=== PATIENT | male | born 1990 | race Caucasian/White ===

== ENCOUNTER → 2023-04-01 13:19 | Outpatient (BNVA) | payer BC, SELFPAY | PROVIDERS: PCP Nurse Practitioner Adult Health; Visit Provider Physician Assistant Surgical | DX: Z13.89 Encounter for screening for other disorder (principal) ==

== ENCOUNTER 2023-04-23 | Outpatient (REF) | payer BC, SELFPAY ==
[2023-04-27 14:59] LABS: H Pylori Breath Test Negative (Negative)
== END 2023-04-23 00:01 | disposition home or self-care (01) ==
LOC: HO.LNP
PROVIDERS: Visit Provider Physician Assistant
DX: Z01.818 Encounter for other preprocedural examination (principal); E66.01 Morbid (severe) obesity due to excess calories; I10 Essential (primary) hypertension; G47.33 Obstructive sleep apnea (adult) (pediatric); Z99.89 Dependence on other enabling machines and devices
CPT/HCPCS: 83013

== ENCOUNTER → 2023-04-23 12:34 | Outpatient (BNVA) | payer BC, SELFPAY | PROVIDERS: PCP Nurse Practitioner Adult Health; Referring Provider Nurse Practitioner Adult Health; Visit Provider Physician Assistant ==

== ENCOUNTER 2023-05-02 10:28 | Outpatient (REF) | payer BC, SELFPAY ==
--- NOTE | ~2023-05-02 | XR_ITS ---
EXAMINATION: XR CHEST CLINICAL INFORMATION: Encounter for other preprocedural exam COMPARISON: None available. TECHNIQUE: 2 views of the chest were obtained. FINDINGS: No significant abnormality is noted involving the heart, lungs, mediastinum, bony thorax or soft tissues. XR/XR chest 2V IMPRESSION: Unremarkable examination.
--- NOTE | 2023-05-02 10:33 | ECG_ITS ---
Test Reason : PREOP Blood Pressure : / mmHG Vent. Rate : 092 BPM Atrial Rate : 092 BPM P-R Int : 150 ms QRS Dur : 094 ms QT Int : 350 ms P-R-T Axes : 039 174 067 degrees QTc Int : 432 ms Normal sinus rhythm Left posterior fascicular block Cannot rule out Anterior infarct , age undetermined Abnormal ECG No previous ECGs available Referred By: Elaine Olguin Electronically Signed By:MONALISA BASILIO MD
[2023-05-02 11:00] LABS: MANUAL DIFF FLAG NO
[2023-05-02 12:28] LABS: Basophils Absolute Auto 0.1 X10*3/uL (0.0-0.2); Basophils Percent Auto 0.9 % (0-2); Eosinophils Absolute Auto 0.5 X10*3/uL (0.0-0.4); Eosinophils Percent Auto 5.5 % (0-4); Hematocrit 52.1 % (42.0-52.0); Hemoglobin 17.6 g/dl (14.0-18.0); Imm Gran Abs Auto 0.09 X10*3/uL (0.00-0.03); Lymphocytes Absolute Auto 2.6 X10*3/uL (1.2-4.9); Lymphocytes Percent Auto 28.3 % (20-40); Mean Corpuscular HGB Conc 33.8 g/dl (31.0-36.0); Mean Corpuscular Hemoglobin 29.4 pg (27.0-33.0); Mean Platelet Volume 12.2 fL (9.4-12.4); Monocytes Absolute Auto 1.1 X10*3/uL (0.1-1.2); Monocytes Percent Auto 11.5 % (2-11); Neutrophils Absolute Auto 4.9 x10*3/uL (2.0-8.3); Neutrophils Percent Auto 52.8 % (45-73); Platelet Count 227 X10*3/uL (160-400); Red Blood Count 5.99 X10*6/uL (4.60-5.80); Red Cell Distribution Width 14.6 % (11.0-16.0); White Blood Count 9.2 X10*3/uL (4.8-10.8)
[2023-05-02 12:51] LABS: Estimated Average Glucose 100 mg/dL; Hemoglobin A1c % 5.1 %
[2023-05-02 13:47] LABS: Alanine Aminotransferase 41 U/L (0-40); Alkaline Phosphatase 61 U/L (39-117); Anion Gap 14 (12-20); Aspartate Amino Transferase 27 U/L (5-37); Bilirubin Total 0.7 mg/dL (0.0-1.0); Blood Urea Nitrogen 14 mg/dL (9-16); C Reactive Protein 3.21 mg/dL (< or = 0.50); Calcium 9.4 mg/dL (8.4-10.2); Carbon Dioxide 24 mmol/L (22-29); Chloride 106 mmol/L (96-108); Cholesterol 154 mg/dL; Estimated Glomerular Filt Rate > 60; Glucose Random 94 mg/dL (60-115); HDL Cholesterol 33 mg/dL; Iron 59 mcg/dL (45-160); LDL Cholesterol Calculated 105 mg/dl; Percent Iron Saturation 21 % (15-50); Potassium 4.8 mmol/L (3.3-5.1); Sodium 139 mmol/L (135-145); Total Iron Binding Capacity 284 mcg/dL (228-428); Total Protein 6.8 g/dL (6.5-8.0); Triglycerides 84 mg/dL; Unsaturated Iron Binding 225 ug/dL
[2023-05-02 14:02] LABS: Ferritin 149 ng/mL (20-250); Folate 7.8 ng/mL (> or = 4.0); Insulin 51 uU/mL (2-29); TSH reflex Free T4 1.06 uIU/mL (0.32-4.0); Vitamin B12 416 pg/mL (200-900); Vitamin D 25-OH Total 17.8 ng/mL (>30)
[2023-05-05 14:18] LABS: Calcium (PTHI) 9.6 mg/dL (8.6-10.3); PTHI 48 pg/mL (16-77)
[2023-05-06 15:54] LABS: Zinc 68 mcg/dL (60-130)
[2023-05-08 04:28] LABS: Vitamin A 30 mcg/dL (38-98)
[2023-05-09 13:33] LABS: Vitamin B1 7 nmol/L (8-30)
== END 2023-05-02 10:29 | disposition home or self-care (01) ==
LOC: HO.XRAY 10:28
PROVIDERS: PCP Nurse Practitioner Adult Health; Visit Provider Physician Assistant
DX: Z01.818 Encounter for other preprocedural examination (principal); E66.01 Morbid (severe) obesity due to excess calories; G47.33 Obstructive sleep apnea (adult) (pediatric); I10 Essential (primary) hypertension; Z99.89 Dependence on other enabling machines and devices
CPT/HCPCS: 36415; 71046; 80053; 80061; 82306; 82607; 82728; 82746; 83036; 83525; 83540; 83970; 84425; 84443; 84590; 84630; 85025; 86140; 93005

== ENCOUNTER → 2023-05-06 14:31 | Outpatient (BNVA) | payer BC, SELFPAY | PROVIDERS: PCP Nurse Practitioner Adult Health; Visit Provider Counselor Mental Health ==

== ENCOUNTER 2023-05-13 09:08 | Outpatient (REF) | payer BC, SELFPAY ==
--- NOTE | ~2023-05-13 | US_ITS ---
EXAMINATION: US COMPLETE ABDOMEN WITH LIVER ELASTOGRAPHY CLINICAL INFORMATION: Obesity. COMPARISON: None available. TECHNIQUE: Real-time imaging of the abdominal viscera. Noninvasive ultrasound liver fibrosis assessment is performed using Javier ElastPQ point quantification shear wave elastography (2D-SWE) with a C5-2 MHz transducer. Multiple elastography samples are obtained. FINDINGS: PANCREAS: The visualized pancreatic head is normal in appearance. The remainder of the pancreas is obscured from visualization by the overlying bowel gas. ABDOMINAL AORTA: The middle and distal aortic segments are normal in caliber. INFERIOR VENA CAVA: Visualized portions are normal. LIVER: Normal. The liver demonstrates normal size, contour and echogenicity. No focal lesion or intrahepatic biliary duct dilatation. The right lobe measures 22.2 cm in length. The left lobe measures 12.6 cm in length. Portal flow is hepatopedal. Shear wave liver elastography median stiffness is 1.72 m/s (reference: normal median stiffness is 1.3 m/s or less). IQR/median stiffness to assess sampling precision is 0.15 (reference: good quality data set is IQR/median stiffness of 0.15 or less). GALLBLADDER: Normal. The gallbladder is physiologically distended without evidence of stones, sludge, polyps, wall thickening or pericholecystic fluid. COMMON BILE DUCT: Normal in caliber measuring 0.4 cm in diameter. RIGHT KIDNEY: Normal. No hydronephrosis. No renal calculi or focal parenchymal lesions. The kidney measures 12.4 cm in maximum dimension. LEFT KIDNEY: Echogenic linear area likely vascular calcification. No hydronephrosis. No renal calculi or focal parenchymal lesions. The kidney measures 12.5 cm in maximum dimension. SPLEEN: Normal. The spleen measures 10.2 cm in maximum dimension. FREE FLUID: None. US/US abdomen comp w elastography IMPRESSION: 1. Mild hepatic steatosis without focal lesion. 2. Echogenic area in the left kidney likely vascular calcification. 3. Liver elastography: Median liver stiffness measures 1.72 m/s corresponding to cACLD (ruled out). REFERENCE: Society of Radiologists in Ultrasound Liver Stiffness Thresholds (2019): LIVER STIFFNESS THRESHOLDS: *Liver Stiffness equal or less than 1.3 m/s: High probability of being normal. *Liver Stiffness less than 1.7 m/s: In the absence of other known clinical signs, rules out compensated advanced chronic liver disease. *Liver Stiffness 1.7-2.1 m/s: Suggestive of compensated advanced chronic liver disease but need further test for confirmation. *Liver Stiffness over 2.1 m/s: Rules in compensated advanced chronic liver disease. *Liver Stiffness over 2.4 m/s: Suggestive of clinically significant portal hypertension. QUALITY OF DATA SET: *IQR/Median value equal or less than 0.15 implies a quality data set. *IQR/Median value over 0.15 implies a poor quality data set. SIGNIFICANT CHANGE FROM PRIOR EXAM: Significant change if liver stiffness measurement is 10% or greater from prior exam. OTHER CONSIDERATIONS: The stage of liver fibrosis may be overestimated in the setting of acute hepatitis, liver inflammation, elevated liver function tests, hepatic vascular congestion, obstructive cholestasis, non-fasting state, and infiltrative diseases such as amyloidosis and lymphoma. In some patients with NAFLD, the liver stiffness thresholds for compensated advanced chronic liver disease may be lower. In causes other than viral hepatitis and NAFLD, liver stiffness thresholds are not well established.
--- NOTE | ~2023-05-13 | FL_ITS ---
EXAMINATION: XR FLUOROSCOPY UPPER GI WITH AIR CLINICAL INFORMATION: Obesity COMPARISON: None available. TECHNIQUE: Upper GI was performed using thin and thick barium and effervescent granules. Exam is limited due to patient body habitus. FINDINGS: Esophageal motility is normal. No hernia. There is probable gastroesophageal reflux. Stomach and duodenum are normal. No fold thickening, mass, ulcer or stricture. FLUOROSCOPY TIME: 0.4 minutes DOSE AREA PRODUCT: 6 Gy-cm2 DOSE: 25 mGy FLUOROSCOPIC IMAGES SAVED: 16 saved fluoroscopic images FL/FL upper GI w air IMPRESSION: Limited exam. Probable gastroesophageal reflux.
== END 2023-05-13 09:09 | disposition home or self-care (01) ==
LOC: HO.US 09:08
PROVIDERS: PCP Nurse Practitioner Adult Health; Visit Provider Physician Assistant
DX: Z01.818 Encounter for other preprocedural examination (principal); G47.33 Obstructive sleep apnea (adult) (pediatric); Z99.89 Dependence on other enabling machines and devices
CPT/HCPCS: 74246; 76705; 76981

== ENCOUNTER → 2023-05-26 08:37 | Outpatient (BNVA) | payer BC, SELFPAY | PROVIDERS: PCP Nurse Practitioner Adult Health; Visit Provider Dietitian, Registered | DX: E66.01 Morbid (severe) obesity due to excess calories (principal); Z71.3 Dietary counseling and surveillance | CPT/HCPCS: 97802 ==

== ENCOUNTER → 2023-05-28 07:42 | Outpatient (REF) | payer BC, SELFPAY ==
--- NOTE | 2023-05-28 07:45 | CA_ITS ---
Transthoracic Echocardiogram Patient (Last, First, Middle): Dima Richardson, Gender: Male Date of : 1990 Age: 32 Procedure Date: 05/28/2023 Procedure Type: Transthoracic Echocardiogram Location: OP Height: 180.34 cm Weight: 237.23 kg BSA: 3.17 m2 Heart Rate: 88 bpm BP: 140 / 80 mmHg Sample Mounter: JUDI Guerin MD: Elaine Olguin PA-C Health Practice Manager: Lopez Sandy MD Symptoms: E66.01 - Morbid (severe) obesity due to excess calories Study Quality: Technically Difficult/Contrast ECG Rhythm: Sinus Conclusions: - 1. Technically limited study despite use of contrast agent 2. Normal LV systolic function with normal filling pattern 3. Limited visualization of cardiac valves with normal cardiac valvular Doppler Findings Procedure Information Contrast agent, definity, is being given per protocol without apparent complications. Left Ventricle Normal left ventricular size and systolic function. The visually estimated ejection fraction is between 65-70%. Spectral Doppler is indicative of a normal filling pattern. Right Ventricle The right ventricle was not well visualized. There is normal right ventricular systolic function. Atria The left atrium was not well visualized. Interatrial shunt cannot be excluded. The right atrium was not well visualized. Aortic Valve The aortic valve was not well visualized. There is no aortic valve stenosis. Mitral Valve The mitral valve was not well visualized. There is no mitral valve regurgitation. Pulmonic Valve The pulmonic valve was not well visualized. Tricuspid Valve The tricuspid valve was not well visualized. Great Vessels All visible segments of the aorta are normal in size. The pulmonary artery was not well visualized. Venous The inferior vena cava was not well visualized. Pericardium/Pleural The pericardium was not well visualized. Prior Study Comparison No prior study available for comparison. Measurements 2D Linear Measurements IVSd: 1.03 0.6-0.9/0.6-1.0 cm LVIDd: 5.38 3.9-5.3/4.2-5.9 cm LVIDd Index: 1.70 2.4-3.2/2.2-3.1 cm/m2 LVIDs: 3.62 2.0-3.6 cm LVPWd: 1.01 0.7-1.1 cm LV Mass: 262.91 67-162/88-224 g LV Mass Index: 82.94 43-95/49-115 g/m2 LVOT Diam: 2.30 3.0+(-)1.3 cm 2D Systolic Function EF 4C: 77.80 >55% EF 2C: 58.10 >55% EF BiP: 70.70 >55% Mitral Valve MV Pk E: 0.99 MV PK A: 0.80 MV Decel Time: 182.00 E/A: 1.20 E'Lateral: 11.30 E'Medial: 9.46 E/E' Med: 10.40 E/E' Lat: 8.70 PHT: 53.00 MVA PHT: 4.15 Decel [place]: 5.41 LVOT LVOT Pk Ketan: 1.31 LVOT Mn Ketan: 1.01 LVOT VTI: 0.27 LVOT Pk Grad: 7.00 LVOT Mn Grad: 5.00 LVOT Diam: 2.30 LVOT Area: 4.15 Diastolic Function MV Pk E: 0.99 MV Pk A: 0.80 E/A: 1.20 E'Medial: 9.46 E/E' Med: 10.40 E' Laterial: 11.30 E/E' Lat: 8.70 Right Ventricle TAPSE (mm): 23.10 TVS' Ketan: 14.10 Tricuspid Valve RA Press: 8.00 Great Vessels Aorta Sinus of Valsalva: 3.00 2.0-3.5 cm Ao Asc: 2.90 2.1-3.4 cm Pulmonary Valve PV Pk Ketan: 1.05 Peak PV Grad: 4.00 Updated in Other Vendor System with Status of Final Lopez Sandy MD electronically signed on 05/28/2023 3:29:21 PM with status of Final
== END ==
LOC: HO.CARD 07:42
PROVIDERS: Visit Provider Physician Assistant
DX: E66.01 Morbid (severe) obesity due to excess calories (principal); I10 Essential (primary) hypertension; R94.31 Abnormal electrocardiogram [ECG] [EKG]; G47.33 Obstructive sleep apnea (adult) (pediatric); Z99.89 Dependence on other enabling machines and devices
CPT/HCPCS: 93306; Q9957

== ENCOUNTER 2023-06-17 10:45 | Outpatient (AMB) | payer BC, SELFPAY ==
[2023-06-17 11:01] VITALS: BMI 72.1
--- NOTE | 2023-06-17 11:01 | A.OFFVIS_ITS ---
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 However last week, fell off track. Lack of meal planning and did not feel like cooking 3 Premier shakes, 2 Pure protein bars and 1 meal 6oz protein, and veg Exercise: 30 minutes on the treadmill at 2.0mph . daily going to the gym . Also doing some strength training - routine provided by a link trainer maintenance worker at his gym At lasted nutrition appointment, he was doing 10 minutes on the treadmill. He has been increasing and challenging himself to do more [facility] online classes: 07/08 . reviewed today mother and several friends have had bariatric surgery Previous weight loss methods attempted Has a cardiac event in March - heard about our program online and decided it was time to make a change Dietary counseling reduction Diagnosis Nutrition problem #1 overweight/obesity As related to (etiology) #1 excess energy intake and physical inactivity As evidenced by (sign/symptom) #1 high BMI Monitoring/Goals Nutrition problem monitoring total energy intake, level of knowledge/skill, total PRO intake, total CHO intake and weight Outcome progress progressing Learning/Education Readiness to learn excellent Stages of change action Most Recent Diabetes Results: Cholesterol 154 mg/dL 05/02/23 HDL Cholesterol 33 mg/dL 05/02/23 Triglycerides 84 mg/dL 05/02/23 Creatinine 0.77 mg/dL (0.5-1.4) 05/02/23 Blood Urea Nitrogen 14 mg/dL (9-16) 05/02/23 Sodium 139 mmol/L (135-145) 05/02/23 Potassium 4.8 mmol/L (3.3-5.1) 05/02/23 Chloride 106 mmol/L (96-108) 05/02/23 Carbon Dioxide 24 mmol/L (22-29) 05/02/23 Calcium 9.4 mg/dL (8.4-10.2) 05/02/23 AST 27 U/L (5-37) 05/02/23 ALT 41 U/L (0-40) H 05/02/23 Total Protein 6.8 g/dL (6.5-8.0) 05/02/23 Albumin 4.0 g/dL (3.5-5.0) 05/02/23 PFSH Surgical History Hx of adenoidectomy Hx of appendectomy Hx of tonsillectomy Social History Alcohol intake: current Alcohol intake frequency: holidays/special occasions only Patient Tobacco Use Status: Current everyday Tobacco user Cigarettes Per Day: 5 Assessment & Plan Assessment & Plan (1) Morbid obesity: Code(s): E66.01 - Morbid (severe) obesity due to excess calories Patient Instructions: Patient is cleared from a nutrition standpoint for bariatric surgery. Educational requirements have been completed. Reviewed vitamin supplementation and commitment to protein shake for several months post surgery. Encouraged communication with office as needed Telehealth Telehealth Location of provider rendering services: practice address Location of patient: address on file Patient Identification confirmed using: Name, : Yes Telehealth method: video Patient verbally consented to treatment: Yes Patient verbally consented to billing insurance company: Yes Patient informed of any privacy concerns related to visit: Yes Minutes spent on Phone/Video with Pt.: 20 Coding Level of Care Code Nutr Indiv Subseq ([id number]) Diagnoses Morbid obesity E66.01 Time Spent (min) 20
== END 2023-06-17 12:25 | disposition home or self-care (01) ==
LOC: HO.HBS 11:52
PROVIDERS: Visit Provider Dietitian, Registered
DX: E66.01 Morbid (severe) obesity due to excess calories (principal)

== ENCOUNTER → 2023-06-17 10:45 | Outpatient (BNVA) | payer BC, SELFPAY | PROVIDERS: Visit Provider Dietitian, Registered | DX: E66.01 Morbid (severe) obesity due to excess calories (principal); Z71.3 Dietary counseling and surveillance; Z68.45 Body mass index [BMI] 70 or greater, adult | CPT/HCPCS: 97803 ==

== ENCOUNTER 2023-06-30 09:29 | Outpatient (AMB) | payer BC, SELFPAY ==
--- NOTE | 2023-06-30 09:29 | MHC.OFFVIS ---
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 Pre op work up completed as follows: [facility] classes - 07/08 appts - cleared ? ? ? RD appts? - 05/26, cleared H pylori - negative Labs - done CXR - normal exam ECG -?Normal sinus rhythm Left posterior fascicular block Cannot rule out Anterior infarct , age undetermined Abnormal ECG No previous ECGs available ECHO - 05/28, Conclusions: - 1. Technically limited study despite use of contrast agent ? ? 2. Normal LV systolic function with normal filling pattern ? ? ? 3. Limited visualization of cardiac? valves with normal cardiac? valvular Doppler ? Stress? test - needs to be under 500 lbs for [facility] [place] - will wait until that weight. ULS -mild steatosis,? R- 22.2/ L 12.6 cms UGI - mild reflux Exercise - restarted last week. Working with adjunct trainer. Gym - 4 d/wk. 30 minutes on treadmill speed 2.0, incline - ? calories. Then weighted squats, wall sits, ropes - 3 sets. PFSH Surgical History Hx of adenoidectomy Hx of appendectomy Hx of tonsillectomy Social History Alcohol intake: current Alcohol intake frequency: holidays/special occasions only Patient Tobacco Use Status: Current everyday Tobacco user Cigarettes Per Day: 5 Assessment & Plan Assessment & Plan (1) Morbid obesity: Code(s): E66.01 - Morbid (severe) obesity due to excess calories Plan: Pt has completed all pre op work up except for stress test. TBWL of 5.2 %. He has slowed his weight loss due to stopping exercise, but has restarted now. No change to meal plan is adhering well. Add TBP 30 minute videso 3d/ week to [place]. Next appt 3 weeks with me. Patient is still morbidly obese and is not considered stable at this time. I spent 28 minutes in total speaking with the patient via video conference counseling , reviewing records and charting in patients chart. . (2) Abnormal ECG: Code(s): R94.31 - Abnormal electrocardiogram [ECG] [EKG] Plan: ECHO without abnormalities. Waiting for him to be under 500 lbs sot that we can schedule cardiac stress test t [facility] [place]. Telehealth Telehealth Location of provider rendering services: practice address Location of patient: address on file Patient Identification confirmed using: Name, : Yes Telehealth method: voice only Patient verbally consented to treatment: Yes Patient verbally consented to billing insurance company: Yes Patient informed of any privacy concerns related to visit: Yes Coding Level of Care Code Tele Est Pt Level 4 (40997) Diagnoses Morbid obesity E66.01 Abnormal ECG R94.31
[2023-06-30 10:37] VITALS: BMI 71.6
== END 2023-06-30 10:52 | disposition home or self-care (01) ==
LOC: HO.HBS 09:29
PROVIDERS: Visit Provider Physician Assistant
DX: E66.01 Morbid (severe) obesity due to excess calories (principal); Z68.45 Body mass index [BMI] 70 or greater, adult; R94.31 Abnormal electrocardiogram [ECG] [EKG]
CPT/HCPCS: 99443

== ENCOUNTER → 2023-06-30 09:29 | Outpatient (BNVA) | payer BC, SELFPAY | PROVIDERS: Visit Provider Physician Assistant | DX: E66.01 Morbid (severe) obesity due to excess calories (principal); R94.31 Abnormal electrocardiogram [ECG] [EKG]; G47.33 Obstructive sleep apnea (adult) (pediatric); Z99.89 Dependence on other enabling machines and devices ==

== ENCOUNTER 2023-07-29 08:10 | Outpatient (AMB) | payer BC, SELFPAY ==
--- NOTE | 2023-07-29 08:19 | A.OFFVIS_ITS ---
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 He is a 32-year-old male who 4 months ago ended up going to [facility] because he developed sudden-onset retrosternal chest pressure radiating to his back. He said this was preceded 2 days prior by significant exertional shortness of breath and a day prior with retrosternal chest pressure. He was visiting his father at the hospital and was advised to go to the emergency room. In the emergency room the initial workup including EKG and blood test he was told that he might be having heart attack. I do not have a copy of these records. He subsequently was transferred to [facility] for further care very he said he was told that he had a heart attack. They did a bedside echocardiogram, however because of his body habitus this was a limited study and they were not able to give much information. Did not do any testing for coronary artery disease due to his weight limit. 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 He said he continues to have exertional shortness of breath and chest pressure when he does heavy exertion. He is very motivated in pursuing lifestyle modification weight loss program. He has been taking all his medications. Currently on aspirin lisinopril therapy. He is als o very interested in pursuing weight loss with bariatric surgery. Uses CPAP every night. He says blood pressure is generally well controlled. Echocardiogram repeated here in May was also again very limited but showed normal LV systolic function. EKG done here showed normal sinus rhythm with no pathologic Q-waves but left posterior fascicular block with poor R-wave progression most likely due to his body habitus PFSH Surgical History Hx of adenoidectomy Hx of appendectomy Hx of tonsillectomy Social History Alcohol intake: current Alcohol intake frequency: holidays/special occasions only Patient Tobacco Use Status: Current everyday Tobacco user Cigarettes Per Day: 5 Review of Systems Const Denies chills, Denies daytime sleepiness, Denies fatigue, Denies fever(s), Denies frequent falls, Denies poor appetite, Denies snoring, Denies stops breathing during sleep, Denies weakness, Denies weight gain and Denies weight loss Eyes Denies loss of vision ENT Denies dizziness and Denies hearing loss Card Denies chest pain, Denies claudication, Denies leg edema, Denies lightheadedness, Denies palpitations, Denies dyspnea, Denies dyspnea on exertion and Denies orthopnea Resp Denies cough, Denies excessive phlegm production, Denies dyspnea, Denies dyspnea on exertion, Denies snoring and Denies wheezing GI Denies abdominal pain, Denies hematochezia, Denies change in bowel habits, Denies nausea and Denies vomiting Denies dysuria and Denies urinary frequency Musc Denies arthralgias, Denies muscle weakness, Denies numbness and Denies other (frequent falls) Skin/Breast Denies nail changes and Denies rash Neuro Denies Abnormal speech present, Denies dizziness, Denies frequent falls, Denies loss of vision, Denies memory loss, Denies numbness and Denies weakness Psych Denies depression and Denies memory loss Endo Denies fatigue and Denies palpitations Juliocesar/Lymph Reports easy bruising and Reports other (anemia) Aller/Immun Denies wheezing Physical Exam Vital Signs: Last Vital Signs Pulse 92 07/29/23 08:20 BP 136/80 07/29/23 08:20 BMI result Body Mass Index 72.9 Const General: cooperative, comfortable, no acute distress, alert and awake Nutritional Appearance: obese centrally obese Orientation/consciousness: patient oriented x3 Limitations: no limitations HEENT Head: Yes normocephalic and Yes atraumatic Neck Neck: Yes trachea midline, Yes supple and Yes no JVD Resp Effort & Inspection: normal respiratory effort Auscultation: clear to auscultation bilaterally and diminished lung sounds Cardio Jugular venous distension: no JVD Palpation: normal PMI Rate: regular rate Rhythm: regular rhythm Heart sounds: S1 normal heart sound present, S2 normal heart sound present, no click, no gallops and no rubs GI Auscultation: normal bowel sounds Skin General skin exam: no rashes or lesions noted Neuro General: patient oriented x3 and no focal motor deficits Speech: No Abnormal speech present Extrem General: Yes no clubbing, cyanosis or edema Assessment & Plan Assessment & Plan (1) Exertional chest pain: Code(s): R07.9 - Chest pain, unspecified Plan: exertional chest pain in this young man with significant risk factors of hypertension super obesity. He is very motivated in pursuing aggressive lifestyle modification however limitation currently for bariatric surgery would be his current symptoms of exertional chest pain after an acute event that happen in March that was labeled as myocardial infarction. Will obtain old records. However given his risk factors and his symptoms he requires further coronary evaluation. We discussed to approaches however given his body size are limitations with testing. We will be able to perform coronary CTA at [facility] with his weight. Will schedule him for the same to assess for coronary artery disease and guide further treatment. Meanwhile he is advised to stay away from strenuous exertion. Advised to continue aspirin and lisinopril therapy and manage his blood pressure at home. He should ideally also be on statins given if he had a true myocardial infarction in March to reduce further risk of myocardial infarction. I think he will benefit from bariatric surgery in the future although this needs to be performed safely and all postpone the surgery till we get evaluation was coronary artery. Further treatment based on the findings of the test results. Will follow up in the clinic after coronary CTA. Thank you for allowing me to partake in his care Coding Level of Care Code New Pt Level 4 (31146) Diagnoses Exertional chest pain R07.9
[2023-07-29 08:20] VITALS: BP 136/80; PULSE 92; BMI 72.9
== END 2023-07-29 08:59 | disposition home or self-care (01) ==
PROVIDERS: PCP Nurse Practitioner Adult Health; Referring Provider Physician Assistant; Visit Provider Internal Medicine Cardiovascular Disease
DX: R07.9 Chest pain, unspecified (principal)
CPT/HCPCS: 99204

== ENCOUNTER → 2023-07-29 08:10 | Outpatient (BNVA) | payer BC, SELFPAY | PROVIDERS: PCP Nurse Practitioner Adult Health; Referring Provider Physician Assistant; Visit Provider Internal Medicine Cardiovascular Disease ==

== ENCOUNTER 2023-09-25 15:13 | Outpatient (AMB) | payer BC, SELFPAY ==
[2023-09-25 15:02] VITALS: BMI 72.2
--- NOTE | 2023-09-25 15:02 | MHC.OFFVIS ---
Intake Vital Signs 09/25/23 15:02 Height 5 ft 11 in Weight 518 lb BMI 72.2 Intake Visit Reasons: f/u CTA NS Unit Educator Required: No Allergies No Known Allergies Allergy (Verified 09/25/23 15:04) Medication List - Last Reconciled 09/25/23 by Delia Segovia, LANCE-C aspirin 81 mg PO DAILY cholecalciferol (vitamin D3) 50 mcg PO DAILY doxycycline hyclate 100 mg PO BID ibuprofen 600 mg PO Q8H PRN lisinopril 10 mg PO DAILY HPI f/u CTA NS HPI Details Dima is a 32-year-old male with past medical history of super morbid obesity, hypertension, obstructive sleep apnea with CPAP use who is now undergoing the bariatric program and has reported exertional chest discomfort. He underwent a CTA of the coronary arteries and now presents for a video visit follow-up. Today he reports that he continues to have some discomfort in his anterior chest with physical activity. He says he goes to the gym and does walk on the treadmill 1.6-3.1 mph for up to 30 minutes. At times he will get discomfort and half to stop. Other times he will get discomfort. He has shortness of breath with exertion. No palpitations, presyncope, syncope, PND, orthopnea. He is actively pursuing weight loss. He states that when his weight is under 500 lb he would be eligible for the bariatric surgery. [facility] Medical History (Updated 09/25/23 @ 16:37 by Delia Segovia, RECORDS MANAGEMENT ASSISTANT-C) IFDE on CPAP HTN (hypertension) with goal to be determined Morbid obesity Surgical History Hx of appendectomy Hx of adenoidectomy Hx of tonsillectomy Social History Alcohol intake: current Alcohol intake frequency: holidays/special occasions only Patient Tobacco Use Status: Current everyday Tobacco user Cigarettes Per Day: 5 Review of Systems Const All systems reviewed & are unremarkable except as noted in HPI and below ENT Denies dizziness Card Reports chest pain, Denies chest pain at rest, Reports chest pain with activity, Denies rapid heart rate, Denies pedal edema, Denies edema, Denies leg edema, Denies lightheadedness, Denies palpitations, Denies dyspnea, Reports dyspnea on exertion and Denies orthopnea Resp Denies cough, Denies dyspnea and Reports dyspnea on exertion GI Denies hematochezia and Denies change in stool character Musc Details: difficulty with stair climbing Denies limited range of motion, Denies muscle cramps, Denies muscle weakness, Denies numbness, Denies radiating pain into limb, Denies stiffness and Denies tingling Neuro Denies dizziness, Denies numbness and Denies tingling Endo Denies palpitations Physical Exam Vital Signs: BMI result Body Mass Index 72.2 Assessment & Plan Assessment & Plan (1) Exertional chest pain: Code(s): R07.9 - Chest pain, unspecified Plan: Reports of anterior chest discomfort with exertional activities, other times he does not get discomfort with the same activities. Also has associated shortness of breath with activity. Unable to perform stress test due to his super morbid obesity. An EKG was done on 05/02/2023 showing normal sinus rhythm, left posterior fascicular block, can not exclude anterior infarct, rate 92. Echocardiogram was done on 05/28/2023 showing technically limited study despite use of contrast, LV systolic function normal, limited visualization of cardiac valves. He underwent a CTA of the coronary arteries on 09/19/2023 which was primarily a nondiagnostic study. It was severely limited due to his body habitus. Today he reports ongoing episodes of exertional chest discomfort and shortness of breath. Discussed with Dr. Sandy. Will arrange for a diagnostic cardiac catheterization. Preprocedure labs ordered. Procedure risks reviewed with patient and he is agreeable to proceed. Cardiology office visit 2 weeks post procedure. Instructed on light physical activity until test results are known. Signs and symptoms of angina reviewed. Emergency care if ever needed for symptoms. (2) HTN (hypertension) with goal to be determined: Code(s): I10 - Essential (primary) hypertension Plan: No med changes made today. This is a video visit. Unable to check blood pressure readings. (3) FIDE on CPAP: Code(s): G47.33 - Obstructive sleep apnea (adult) (pediatric); Z99.89 - Dependence on other enabling machines and devices Plan: Compliant (4) Pre-op evaluation: Code(s): Z01.818 - Encounter for other preprocedural examination Plan: Preop for bariatric surgery. Will be having a cardiac catheterization as above. Addendum will be made once test results are available Orders: Orders Complete Blood Count Auto Diff Today Z01.818 - Encounter for other preprocedural examination Cardiac Cath LT Diagnostic Today E66.01 - Morbid (severe) obesity due to excess calories, I10 - Essential (primary) hypertension, R07.9 - Chest pain, unspecified, Z01.818 - Encounter for other preprocedural examination Basic Metabolic Panel Today Z01.818 - Encounter for other preprocedural examination Prothrombin Time INR Today Z01.818 - Encounter for other preprocedural examination Telehealth Telehealth Location of provider rendering services: practice address Location of patient: address on file ([address] [place] [id number]) Patient Identification confirmed using: Name, : Yes Telehealth method: video Patient verbally consented to treatment: Yes Patient verbally consented to billing insurance company: Yes Patient informed of any privacy concerns related to visit: Yes Minutes spent on Phone/Video with Pt.: 20 Coding Level of Care Code Tele Est Pt Level 4 (02269) Diagnoses Exertional chest pain R07.9 HTN (hypertension) with goal to be determined I10 FIDE on CPAP G47.33; Z99.89 Pre-op evaluation Z01.818 Time Spent (min) 30
== END 2023-09-25 16:09 | disposition home or self-care (01) ==
LOC: HO.HCS 15:13
PROVIDERS: PCP Nurse Practitioner Adult Health; Visit Provider Nurse Practitioner Family
DX: R07.9 Chest pain, unspecified (principal); I10 Essential (primary) hypertension; G47.33 Obstructive sleep apnea (adult) (pediatric); Z99.89 Dependence on other enabling machines and devices; Z01.818 Encounter for other preprocedural examination
CPT/HCPCS: 99214

== ENCOUNTER → 2023-09-25 15:13 | Outpatient (BNVA) | payer BC, SELFPAY | PROVIDERS: PCP Nurse Practitioner Adult Health; Visit Provider Nurse Practitioner Family ==

== ENCOUNTER 2023-10-10 10:20 | Outpatient (REF) | payer BC, SELFPAY ==
[2023-10-10 10:35] LABS: MANUAL DIFF FLAG NO
[2023-10-10 11:04] LABS: Basophils Absolute Auto 0.1 X10*3/uL (0.0-0.2); Basophils Percent Auto 0.7 % (0-2); Eosinophils Absolute Auto 0.6 X10*3/uL (0.0-0.4); Eosinophils Percent Auto 5.1 % (0-4); Hematocrit 53.1 % (42.0-52.0); Hemoglobin 17.4 g/dl (14.0-18.0); Imm Gran Abs Auto 0.03 X10*3/uL (0.00-0.03); Imm Gran Pct Auto 0.3 % (0.0-0.4); Lymphocytes Absolute Auto 3.2 X10*3/uL (1.2-4.9); Lymphocytes Percent Auto 28.6 % (20-40); Mean Corpuscular HGB Conc 32.8 g/dl (31.0-36.0); Mean Corpuscular Hemoglobin 28.5 pg (27.0-33.0); Mean Corpuscular Volume 86.9 fL (80.0-98.0); Mean Platelet Volume 11.4 fL (9.4-12.4); Monocytes Percent Auto 9.1 % (2-11); Neutrophils Absolute Auto 6.2 x10*3/uL (2.0-8.3); Neutrophils Percent Auto 56.2 % (45-73); Platelet Count 259 X10*3/uL (160-400); Red Blood Count 6.11 X10*6/uL (4.60-5.80); Red Cell Distribution Width 14.8 % (11.0-16.0); White Blood Count 11.1 X10*3/uL (4.8-10.8)
[2023-10-10 11:29] LABS: INTERNATIONAL NORM RATIO 0.9 (0.9-1.1)
[2023-10-10 11:37] LABS: Anion Gap 10 (12-20); Blood Urea Nitrogen 12 mg/dL (9-16); Carbon Dioxide 27 mmol/L (22-29); Chloride 108 mmol/L (96-108); Estimated Glomerular Filt Rate > 60; Glucose Random 92 mg/dL (60-115); Potassium 4.4 mmol/L (3.3-5.1); Sodium 141 mmol/L (135-145)
== END 2023-10-10 10:21 | disposition home or self-care (01) ==
LOC: HO.LAB 10:20
PROVIDERS: PCP Nurse Practitioner Adult Health; Referring Provider Internal Medicine Cardiovascular Disease; Visit Provider Nurse Practitioner Family
DX: Z01.818 Encounter for other preprocedural examination (principal); R07.89 Other chest pain; R94.31 Abnormal electrocardiogram [ECG] [EKG]
CPT/HCPCS: 36415; 80048; 85025; 85610

== ENCOUNTER → 2023-10-14 23:59 | Outpatient (BNV) | payer BC, SELFPAY | PROVIDERS: PCP Nurse Practitioner Adult Health; Visit Provider Internal Medicine Cardiovascular Disease | DX: Z01.810 Encounter for preprocedural cardiovascular examination (principal); E66.01 Morbid (severe) obesity due to excess calories; Z68.45 Body mass index [BMI] 70 or greater, adult | CPT/HCPCS: 93458; 99152 ==

== ENCOUNTER 2023-11-03 14:44 | Outpatient (AMB) | payer BC, SELFPAY ==
[2023-11-03 15:25] VITALS: BP 180/90; PULSE 98; BMI 75.0
--- NOTE | 2023-11-03 15:25 | MHC.OFFVIS ---
Intake Vital Signs 11/03/23 15:25 Height 5 ft 11 in Weight 537 lb 14.846 oz BMI 75.0 BP 180/90 H Position Left Lateral Pulse 98 Pulse Source Pulse Oximeter Intake Visit Reasons: f/u after cath Intake Note: f/up ,patien had slight chest pain in the afternoon but went away. 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 He recently had a cardiac catheterization showing normal coronary arteries. He now presents for office follow-up. Today he reports he continues to have some chest tightness which occurs at rest and with activity. He will notice some shortness of breath at that time as well. This symptom is not increasing or changing. No palpitations, presyncope, syncope, PND, edema. He wear CPAP mask at night. He is trying to lose weight to undergo bariatric surgery. Right radial catheterization site is feeling well. [facility] Medical History FIDE on CPAP HTN (hypertension) with goal to be determined Morbid obesity Surgical History (Updated 11/03/23 @ 17:42 by Delia Segovia, LANCE-C) Hx of appendectomy Hx of adenoidectomy Hx of tonsillectomy Social History Alcohol intake: current Alcohol intake frequency: holidays/special occasions only Patient Tobacco Use Status: Current everyday Tobacco user Cigarettes Per Day: 5 Review of Systems Const All systems reviewed & are unremarkable except as noted in HPI and below Denies chills, Denies fatigue, Denies fever(s), Denies frequent falls, Denies weakness, Reports weight gain and Denies weight loss ENT Denies dizziness Card Reports chest pain, Reports chest pain at rest, Reports chest pain with activity, Reports leg edema, Denies lightheadedness, Denies palpitations, Reports dyspnea and Denies dyspnea on exertion Resp Reports cough, Reports dyspnea and Denies dyspnea on exertion GI Denies hematochezia Musc Denies abnormal gait, Denies muscle weakness, Denies numbness, Denies radiating pain into limb and Denies tingling Neuro Denies abnormal gait, Denies dizziness, Denies frequent falls, Denies numbness, Denies tingling and Denies weakness Endo Denies fatigue and Denies palpitations Physical Exam Vital Signs: Last Vital Signs Pulse 98 11/03/23 15:25 BP 180/90 H 11/03/23 15:25 BMI result Body Mass Index 75.0 Const General: cooperative, comfortable and no acute distress Orientation/consciousness: patient oriented x3 HEENT Head: Yes normal to inspection Eyes Sclerae: sclerae normal Neck Neck: Yes normal visual inspection and Yes no JVD Carotids: normal carotid upstroke Chest Chest palpation & inspection: normal inspection of the chest Resp Effort & Inspection: normal respiratory effort Auscultation: clear to auscultation bilaterally (Lung sounds diminished), no rales, no rhonchi and no wheezes Cardio Rate: regular rate Rhythm: regular rhythm Heart sounds: S1 normal heart sound present (Heart tones distant), S2 normal heart sound present and no murmurs GI Other: Obese, rounded Skin General skin exam: no rashes or lesions noted Neuro General: patient oriented x3 Extrem General: Yes normal to inspection, No no pedal edema and No calf tenderness Psych Appearance: other (morbidly obese) Mental Status: mental status grossly normal Speech and movement: Normal speech and movement present Assessment & Plan Assessment & Plan (1) Exertional chest pain: Code(s): R07.9 - Chest pain, unspecified Plan: Reports of anterior chest discomfort with activity and at rest, at times with associated shortness of breath. We were Unable to perform stress test due to his super morbid obesity. An EKG was done on 05/02/2023 showing normal sinus rhythm, left posterior fascicular block, can not exclude anterior infarct, rate 92. Echocardiogram was done on 05/28/2023 showing technically limited study despite use of contrast, LV systolic function normal, limited visualization of cardiac valves. He underwent a CTA of the coronary arteries on 09/19/2023 which was primarily a nondiagnostic study. It was severely limited due to his body habitus. He then underwent cardiac catheterization on 10/14/2023 showing normal coronary arteries. All test results reviewed with him in detail. Today he reports ongoing episodes of chest discomfort/ tightness and shortness of breath. In the setting of normal coronary arteries this is not likely to be a heart symptom. Recommended he further discuss symptom with his PCP and assess for noncardiac causes. Cardiology follow-up as needed. (2) HTN (hypertension) with goal to be determined: Code(s): I10 - Essential (primary) hypertension Plan: Blood pressure elevated today. Prior blood pressures reviewed and typically are in or near normal range. He ambulated into this office today which may have contributed to his elevated reading. He is currently on lisinopril 10 mg daily. I will take the liberty to increase his dose up to 20 mg daily. Labs reviewed on 10/10/2023 showed potassium 4.4, creatinine 0.7. Will for this note to his PCP for review (3) FIDE on CPAP: Code(s): G47.33 - Obstructive sleep apnea (adult) (pediatric); Z99.89 - Dependence on other enabling machines and devices Plan: Compliant (4) Morbid obesity: Code(s): E66.01 - Morbid (severe) obesity due to excess calories Plan: Following with the [facility] bariatric program (5) Pre-op evaluation: Code(s): Z01.818 - Encounter for other preprocedural examination Plan: Preop for bariatric surgery. Low to intermediate cardiac risk. (6) S/P cardiac catheterization: Comment: 10/14/2023, normal coronary arteries Code(s): Z98.890 - Other specified postprocedural states Plan Time spent on chart review, documentation, interview, assessment Medications: New lisinopril Obtain further refills from PCP 20 mg PO DAILY 90 tabs 0RF Coding Level of Care Code Est Pt Level 3 (88247) Diagnoses Exertional chest pain R07.9 HTN (hypertension) with goal to be determined I10 FIDE on CPAP G47.33; Z99.89 Morbid obesity E66.01 Pre-op evaluation Z01.818 S/P cardiac catheterization Z98.890 Time Spent (min) 24
== END 2023-11-03 16:18 | disposition home or self-care (01) ==
PROVIDERS: PCP Nurse Practitioner Adult Health; Visit Provider Nurse Practitioner Family
DX: R07.9 Chest pain, unspecified (principal); I10 Essential (primary) hypertension; G47.33 Obstructive sleep apnea (adult) (pediatric); Z99.89 Dependence on other enabling machines and devices; E66.01 Morbid (severe) obesity due to excess calories; Z01.818 Encounter for other preprocedural examination; Z98.890 Other specified postprocedural states
CPT/HCPCS: 99213

== ENCOUNTER → 2023-11-03 14:44 | Outpatient (BNVA) | payer BC, SELFPAY | PROVIDERS: PCP Nurse Practitioner Adult Health; Visit Provider Nurse Practitioner Family ==

== ENCOUNTER 2023-11-13 15:30 | Outpatient (AMB) | payer BC, SELFPAY ==
--- NOTE | 2023-11-13 13:52 | A.OFFVIS_ITS ---
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 He has undergone extensive cardiac work up, note per Delia Segovia NP cardiology dept: Reports of anterior chest discomfort with activity and at rest, at times with associated shortness of breath. We were Unable to perform stress test due to his super morbid obesity. An EKG was done on 05/02/2023 showing normal sinus rhythm, left posterior fascicular block, can not exclude anterior infarct, rate 92. Echocardiogram was done on 05/28/2023 showing technically limited study despite use of contrast, LV systolic function normal, limited visualization of cardiac valves. He underwent a CTA of the coronary arteries on 09/19/2023 which was primarily a nondiagnostic study. It was severely limited due to his body habitus. He then underwent cardiac catheterization on 10/14/2023 showing normal coronary arteries. All test results reviewed with him in detail. Today he reports ongoing episodes of chest discomfort/ tightness and shortness of breath. In the setting of normal coronary arteries this is not likely to be a heart symptom. Recommended he further discuss symptom with his PCP and assess for noncardiac causes. Cardiology follow-up as needed. PCP appt scheduled for December 12. Still having these symptoms once or twice per week Working M- F now 7am - 3pm. Wakes at 5:30 pm, bed at 9:30 pm Meal plan - hasn't been using our plan. Restarted this week Coffee 1-2 d/ week - whole milk 7am - Premier RTD 9:45 am - shake or Pure protein - half t he days of the week alternates with 11:30 O powerade 2:30 - bar or shake 5:30 pm - not measuring protein - veget [place] 4d/ week only. green beans, peas, cauliflower. 1% milk 8:30 - bar Exercise - none now Pre op work up com pleted as follows: [facility] classes - 07/08 appts - cleare d ? ? ? RD appts? - 05/26, cleared H pylori - negative Labs - done CXR - normal exam ECG -? Normal sinus rhyth m Left posterior f ascicular block Ca nnot rule out Ante rior infarct , age undetermined Abno rmal ECG No previo us ECGs available SEE above for card iology work up. U LS -mild steatosis ,? R- 22.2/ L 12.6 cms UGI - mild re flux PFSH Medical History FIDE on CPAP HTN (hypertension) with goal to be determined Morbid obesity Surgical History Hx of appendectomy Hx of adenoidectomy Hx of tonsillectomy Social History Alcohol intake: current Alcohol intake frequency: holidays/special occasions only Patient Tobacco Use Status: Current everyday Tobacco user Cigarettes Per Day: 5 Assessment & Plan Assessment & Plan (1) Morbid obesity: Code(s): E66.01 - Morbid (severe) obesity due to excess calories Plan: Patient has regained all of the weight that he lost and is now restarting meal and exercise plans. He has completed all pre operative work up except weight loss. He was reminded that he needs to lose aobut 100 lbs before surgery. Meal plan : needs regular schedule 7am - Premier shake - will now switch to powder with 8 oz water or UAM 945 - bar 11:30 am - shake 2:30- shake 5:30 meal of 14 forks each protein and veg - use our list for appropriate vegetables 8:30 - bar Exercise -gym 5 d/week - treadmill [address] Restart texting me weekly weights. Next appt with me in 3 weeks. Patient is still morbidly obese and is not considered stable at this time. I spent 30 minutes in total speaking with the patient via video conference counseling , reviewing records and charting in patients chart. . (2) FIDE on CPAP: Code(s): G47.33 - Obstructive sleep apnea (adult) (pediatric); Z99.89 - Dependence on other enabling machines and devices (3) HTN (hypertension) with goal to be determined: Code(s): I10 - Essential (primary) hypertension (4) S/P cardiac catheterization: Comment: 10/14/2023, normal coronary arteries Code(s): Z98.890 - Other specified postprocedural states Plan see above Coding Level of Care Code Tele Est Pt Level 4 (68352) Diagnoses Morbid obesity E66.01 FIDE on CPAP G47.33; Z99.89 HTN (hypertension) with goal to be determined I10 S/P cardiac catheterization Z98.890
[2023-11-13 15:30] VITALS: BMI 75.5
== END 2023-11-13 15:52 | disposition home or self-care (01) ==
LOC: HO.HBS 15:43
PROVIDERS: PCP Nurse Practitioner Adult Health; Visit Provider Physician Assistant
DX: E66.01 Morbid (severe) obesity due to excess calories (principal); Z68.45 Body mass index [BMI] 70 or greater, adult; G47.33 Obstructive sleep apnea (adult) (pediatric); I10 Essential (primary) hypertension
CPT/HCPCS: 99214

== ENCOUNTER → 2023-11-13 15:30 | Outpatient (BNVA) | payer BC, SELFPAY | PROVIDERS: PCP Nurse Practitioner Adult Health; Visit Provider Physician Assistant ==

== ENCOUNTER → 2023-12-18 16:31 | Outpatient (BNVA) | payer BC, SELFPAY | PROVIDERS: PCP Nurse Practitioner Adult Health; Visit Provider Physician Assistant ==

== ENCOUNTER 2024-08-08 21:24 | Emergency (ER) | payer OTHER, SELFPAY ==
--- NOTE | ~2024-08-08 | US_ITS ---
EXAMINATION: US ABDOMEN LIMITED CLINICAL INFORMATION: Right upper quadrant pain. COMPARISON: 05/13/2023 TECHNIQUE: Real-time imaging of the right upper quadrant abdominal viscera. FINDINGS: Per technologist report, performance of the exam was limited due to patient body habitus. GALLBLADDER: The gallbladder is physiologically distended without evidence of stones, sludge, polyps, wall thickening or pericholecystic fluid. COMMON BILE DUCT: Normal in caliber measuring 0.5 cm in diameter. US/US abdomen limited IMPRESSION: No acute findings identified. Electronically signed by: Leonardo Rincon MD 08/09/2024 12:10 AM EDT
[2024-08-08 21:27] VITALS: BP 159/96; PULSE 98; RESP 18; TEMP 36.1; O2SAT 96; BMI 80.8
[2024-08-08 21:42] LABS: MANUAL DIFF FLAG NO
[2024-08-08 21:43] LABS: Basophils Absolute Auto 0.1 X10*3/uL (0.0-0.2); Basophils Percent Auto 0.4 % (0-2); Eosinophils Absolute Auto 0.4 X10*3/uL (0.0-0.4); Eosinophils Percent Auto 2.7 % (0-4); Hematocrit 53.9 % (42.0-52.0); Hemoglobin 18.3 g/dl (14.0-18.0); Imm Gran Abs Auto 0.04 X10*3/uL (0.00-0.03); Imm Gran Pct Auto 0.3 % (0.0-0.4); Lymphocytes Percent Auto 14.7 % (20-40); Mean Corpuscular Hemoglobin 29.1 pg (27.0-33.0); Mean Corpuscular Volume 85.7 fL (80.0-98.0); Mean Platelet Volume 11.1 fL (9.4-12.4); Monocytes Absolute Auto 1.3 X10*3/uL (0.1-1.2); Monocytes Percent Auto 9.2 % (2-11); Neutrophils Absolute Auto 9.9 x10*3/uL (2.0-8.3); Neutrophils Percent Auto 72.7 % (45-73); Platelet Count 241 X10*3/uL (160-400); Red Blood Count 6.29 X10*6/uL (4.60-5.80); Red Cell Distribution Width 14.1 % (11.0-16.0); White Blood Count 13.6 X10*3/uL (4.8-10.8)
[2024-08-08 21:58] LABS: Alanine Aminotransferase 44 U/L (0-40); Alkaline Phosphatase 61 U/L (39-117); Anion Gap 13 (12-20); Aspartate Amino Transferase 23 U/L (5-37); Bilirubin Total 0.6 mg/dL (0.0-1.0); Blood Urea Nitrogen 12 mg/dL (9-16); Carbon Dioxide 24 mmol/L (22-29); Chloride 106 mmol/L (96-108); Creatinine Clr Calc Pharmacy 284.3; Estimated Glomerular Filt Rate > 60; Glucose Random 101 mg/dL (60-115); Lipase 43 U/L (8-78); Potassium 4.3 mmol/L (3.3-5.1); Sodium 139 mmol/L (135-145); Total Protein 7.1 g/dL (6.5-8.0)
--- NOTE | 2024-08-08 23:17 | ED.ABDPAIN ---
HPI - Abdominal Pain General Chief Complaint: Abdominal Pain Stated Complaint: abd pain Time Seen by Provider: 08/08/24 22:27 Source: patient, family and old records reviewed Mode of arrival: ambulatory Limitations: no limitations History of Present Illness ED Provider: NOLA AYOUB narrative: 33 yo male with HTN, prior appendectomy, morbid obesity on Wegovy x 5 weeks here with c/o n/v and epigastric RUQ pain since 10pm last night. No diarrhea reports terrible smell to vomit. He denies travel, food exposures, abx use, sick contacts. States he has not felt like this since his appendix ruptured. No fevers reported. Hx of chronic chest pain but clean cath in the past. cath report 10/2023 coronary arteriers are angiographically normal MD elicited complaint: abdominal pain Pertinent past history: none Onset (ago): day(s) (last night) Pain Consistency: constant Location: epigastric and RUQ Severity: severe Quality: stabbing Radiation: none Migration to: no migration Exacerbating factors: eating Relieving factors: nothing Associated symptoms: nausea and vomiting Related Data Home Medications ?Medication ?Instructions ?Recorded ?Confirmed aspirin 81 mg chewable tablet 81 mg PO DAILY 04/23/23 11/03/23 ibuprofen 600 mg tablet 600 mg PO Q8H PRN 04/23/23 11/03/23 doxycycline hyclate 100 mg capsule 100 mg PO BID 09/25/23 11/03/23 Previous Rx's ?Medication ?Instructions ?Recorded cholecalciferol (vitamin D3) 50 50 mcg PO DAILY #30 caps 05/06/23 mcg (2,000 unit) capsule lisinopril 20 mg tablet 20 mg PO DAILY #90 tabs 11/03/23 Allergies Allergy/AdvReac Type Severity Reaction Status Date / Time No Known Allergies Allergy Verified 08/08/24 21:29 Review of Systems Review of Systems Constitutional : No Weight loss, No Fever, No Chills ENT/Mouth : No sore throat, No Rhinorrhea Eyes: No Swelling, No Redness Cardiovascular : No Chest Pain, No SOB, NoEdema Respiratory : No Cough, No Sputum, No Wheezing Gastrointestinal : Positive Nausea, Positive Vomiting, no Diarrhea, positive abdominal Pain, No Hematochezia, No Melena Genitourinary : No Dysuria, No Urinary Frequency, No Hematuria, No Urgency Musculoskeletal : No joint pain, No Myalgias, No Joint Swelling Skin : No Skin Lesions, No rash Neuro : No Weakness, No Numbness, No Dizziness, No Headache All other systems reviewed and are negative. REPLACED BY [facility] Past Medical History Attestation statement: The following information was validated with the patient. Source: old records reviewed Medical History FIDE on CPAP HTN (hypertension) with goal to be determined Morbid obesity Surgical History Hx of appendectomy Hx of adenoidectomy Hx of tonsillectomy Social History Social History Alcohol intake: current Alcohol intake frequency: holidays/special occasions only Patient Tobacco Use Status: Current everyday Tobacco user Cigarettes Per Day: 5 Advance Directives: No Advance Directives Information Provided: No Do you have a plan to hurt others: No Plan Physical Exam ED Vital Signs: Vital Signs - 24 hr 08/08/24 21:27 08/08/24 23:29 08/09/24 00:51 Temperature 96.9 F Pulse Rate 98 101 H Respiratory Rate 18 20 20 Blood Pressure 159/96 H 140/87 H Pulse Oximetry 96 95 Oxygen Delivery Method Room Air Room Air 08/09/24 03:27 Temperature 98.8 F Pulse Rate 106 H Respiratory Rate 18 Blood Pressure 147/82 H Pulse Oximetry 99 Oxygen Delivery Method Room Air BMI result Body Mass Index 79.0 Appearance: Alert. Oriented X3. mild acute distress. appears in pain Eyes: Pupils equal, round and reactive to light. ENT: Pharynx normal. Neck: Normal inspection. Neck supple. CVS: Normal heart rate and rhythm. Pulses normal. Respiratory: No respiratory distress. Breath sounds normal. Abdomen: Soft obese, with moderate ttp in epigastric and RUQ area no rebound Skin: Skin warm and dry. Normal skin color. Normal skin turgor. Extremities: No lower extremity edema. Neuro: Oriented X 3. No motor deficit. No sensory deficit. Course Course Course Narrative: repeat IV dilaudid for pain, at this time he needs CT scan for further imaging he is 584 lbs. 80cm girth I am going to contact [employer] or anyone else able to provide CT scan we weighed him and he is over out CT scanners ability Reevaluation(s) Reevaluation #1: [facility], , [facility], [facility], [facility] closed to transfers or unable to accommodate his body habitus for CT scan at this time [facility] [place] cannot accommodate his body habitus [place] [facility] aware that patient plans to drive he is being discharged at this time at their request as they refuse ambulance ride they are aware that we have tried to call multiple facilities. Reevaluation #2: accepted to [facility] Dr. Keith ayers Reevaluation #3: 3 doses of IV dilaudid intractable nausea/vomiting cannot tolerate PO 2 L of LR ordered Medical Decision Making Medical Decision Making [facility] Narrative: 33 yo male with HTN, prior appendectomy, morbid obesity on Wegovy x 5 weeks here with c/o 1 day of RUQ pain epigastric pain n/v did start wegovy for weight loss 5 weeks ago. He denies diarrhea. At this time will need labs, IVF, IV dilaudid for pain, US for gallbladder ds. He is over our limit for CT scan and he has no diarrhea to suggest colitis, he has not had diarrhea and his abdomen is not more distended - pain is all upper not diffuse SBO seems unlikely. It is epigastric not in the flank doubt renal colic. Differential Diagnosis Differential Diagnoses: The differential diagnosis associated with the presentation includes gastritis, delayed gastric emptying, biliary colic, food exposures. Admission/Observation Consideration of admission/observation: Escalation of care including admission/observation considered refuses ambulance ride to facility that we could find that would accommodate CT scan for him Lab Data [facility] Lab Attestation statement: I reviewed the patient's lab results. 08/09/24 01:12 08/09/24 01:12 Labs: Lab Results 08/08/24 08/09/24 Range/Units 21:38 01:12 WBC 13.6 H 12.1 H (4.8-10.8) X10*3/uL RBC 6.29 H 6.25 H (4.60-5.80) X10*6/uL Hgb 18.3 H 18.2 H (14.0-18.0) g/dl Hct 53.9 H 54.0 H (42.0-52.0) % MCV 85.7 86.4 (80.0-98.0) fL MCH 29.1 29.1 (27.0-33.0) pg MCHC 34.0 33.7 (31.0-36.0) g/dl RDW 14.1 14.3 (11.0-16.0) % Plt Count 241 237 (160-400) X10*3/uL MPV 11.1 11.2 (9.4-12.4) fL Immature Gran % (Auto) 0.3 0.3 (0.0-0.4) % Neut % (Auto) 72.7 72.3 (45-73) % Lymph % (Auto) 14.7 L 14.0 L (20-40) % Gooding % (Auto) 9.2 10.8 (2-11) % Eos % (Auto) 2.7 2.2 (0-4) % Baso % (Auto) 0.4 0.4 (0-2) % Lymph # (Auto) 2.0 1.7 (1.2-4.9) X10*3/uL Gooding # (Auto) 1.3 H 1.3 H (0.1-1.2) X10*3/uL Eos # (Auto) 0.4 0.3 (0.0-0.4) X10*3/uL Baso # (Auto) 0.1 0.1 (0.0-0.2) X10*3/uL Abs Immat Gran (auto) 0.04 H 0.04 H (0.00-0.03) X10*3/uL Absolute Neuts (auto) 9.9 H 8.8 H (2.0-8.3) x10*3/uL Absolute Nucleated RBC 0.000 0.000 (0.0-0.012) X10*3/uL Nucleated RBC % (auto) 0.0 0.0 (0.0-0.2) /100WBC Sodium 139 140 (135-145) mmol/L Potassium 4.3 4.4 (3.3-5.1) mmol/L Chloride 106 104 (96-108) mmol/L Carbon Dioxide 24 28 (22-29) mmol/L Anion Gap 13 12 (12-20) BUN 12 16 (9-16) mg/dL Creatinine 0.80 0.83 (0.5-1.4) mg/dL Estim Creat Clear Calc 284.3 269.8 Estimated GFR > 60 > 60 Random Glucose 101 111 (60-115) mg/dL Calcium 10.0 D 9.9 (8.4-10.2) mg/dL Total Bilirubin 0.6 0.7 (0.0-1.0) mg/dL Direct Bilirubin 0.2 (0.0-0.5) mg/dL AST 23 23 (5-37) U/L ALT 44 H 41 H (0-40) U/L Alkaline Phosphatase 61 60 (39-117) U/L Total Protein 7.1 7.4 (6.5-8.0) g/dL Albumin 4.0 4.0 (3.5-5.0) g/dL Lipase 43 (8-78) U/L Independent Interpretation I performed an independent interpretation of an: Ultrasound Interpretation: TECHNIQUE: Real-time imaging of the right upper quadrant abdominal viscera. FINDINGS: Per technologist report, performance of the exam was limited due to patient body habitus. GALLBLADDER: The gallbladder is physiologically distended without evidence of stones, sludge, polyps, wall thickening or pericholecystic fluid. COMMON BILE DUCT: Normal in caliber measuring 0.5 cm in diameter. US/US abdomen limited IMPRESSION: No acute findings identified. Electronically signed by: Leonardo Rincon MD 08/09/2024 12:10 AM EDT Radiology Impression Discussion of test interpretation with radiology: I have reviewed the radiologist's reading. Independent Historian Clinical information obtained from an independent historian. History obtained from or confirmed by: Spouse External Record Review External record reviewed: Office record Medications Administered Discontinued Medications Generic Name Dose Route Start Last Admin Trade Name Freq PRN Reason Stop Dose Admin Hydromorphone HCl 0.5 mg 08/08/24 22:34 08/08/24 23:29 Hydromorphone Hcl 0.5 Mg/0.5 Ml Syringe IVPUSH 08/08/24 22:35 0.5 mg ONCE ONE Administration Protocol Hydromorphone HCl 1 mg 08/09/24 00:47 08/09/24 00:53 Hydromorphone Hcl 1 Mg/Ml Syringe IVPUSH 08/09/24 00:48 1 mg ONCE ONE Administration Protocol Hydromorphone HCl 1 mg 08/09/24 04:36 08/09/24 04:49 Hydromorphone Hcl 1 Mg/Ml Syringe IVPUSH 08/09/24 04:37 1 mg ONCE ONE Administration Protocol Lactated Ringer's 1,000 mls @ 999 mls/hr 08/08/24 22:34 08/09/24 01:50 Lr IV 08/08/24 23:34 Infused .Q1H1M ONE Infusion Lactated Ringer's 1,000 mls @ 999 mls/hr 08/09/24 03:48 08/09/24 04:33 Lr IV 08/09/24 04:48 999 mls/hr .Q1H1M ONE Administration Ondansetron HCl 4 mg 08/08/24 22:34 08/08/24 23:28 Ondansetron Hcl 4 Mg/2 Ml Vial IVPUSH 08/08/24 22:35 4 mg ONCE ONE Administration Critical Care Time Critical Care Time Critical Care Time: Yes Total Critical Care Time: 60 Attestation: repeat IV dilaudid with improvement in pain, repeat calls to centers for transfer given his habitus, IVF x 2L, repeat assessments I attest to this time spent taking care of the patient Discharge Plan Discharge Clinical Impression: Abdominal pain Qualifiers: Abdominal location: generalized Qualified Code(s): R10.84 - Generalized abdominal pain Nausea & vomiting Qualifiers: Vomiting type: unspecified Qualified Code(s): R11.2 - Nausea with vomiting, unspecified [facility] [place] [facility]: No Action cholecalciferol (vitamin D3) 50 mcg (2,000 unit) capsule 50 mcg PO DAILY Qty: 30 5RF aspirin 81 mg tablet,chewable 81 mg PO DAILY ibuprofen 600 mg tablet 600 mg PO Q8H PRN lisinopril 20 mg tablet 20 mg PO DAILY Qty: 90 0RF Rx Instructions: Obtain further refills from PCP doxycycline hyclate 100 mg capsule 100 mg PO BID Print Language: Upper Sorbian
[2024-08-08] MEDS: ondansetron HCL 4 MG/2 ML VIAL IVPUSH (23:28)
[2024-08-08 23:29] VITALS: RESP 20
[2024-08-08] MEDS: HYDROmorphone HCl 0.5 MG/0.5 ML SYRINGE IVPUSH (23:29)
[2024-08-08] MEDS: Lactated Ringers 1,000 ML 999 ML IV (23:30)
[2024-08-09 00:51] VITALS: BP 140/87; PULSE 101; RESP 20; O2SAT 95
[2024-08-09] MEDS: HYDROmorphone HCl 1 MG/ML SYRINGE IVPUSH ×3 (00:53→07:23)
[2024-08-09 01:06] VITALS: BMI 79.0
[2024-08-09 01:17] LABS: MANUAL DIFF FLAG NO
[2024-08-09 01:18] LABS: Basophils Absolute Auto 0.1 X10*3/uL (0.0-0.2); Basophils Percent Auto 0.4 % (0-2); Eosinophils Absolute Auto 0.3 X10*3/uL (0.0-0.4); Eosinophils Percent Auto 2.2 % (0-4); Hemoglobin 18.2 g/dl (14.0-18.0); Imm Gran Abs Auto 0.04 X10*3/uL (0.00-0.03); Imm Gran Pct Auto 0.3 % (0.0-0.4); Lymphocytes Absolute Auto 1.7 X10*3/uL (1.2-4.9); Mean Corpuscular HGB Conc 33.7 g/dl (31.0-36.0); Mean Corpuscular Hemoglobin 29.1 pg (27.0-33.0); Mean Corpuscular Volume 86.4 fL (80.0-98.0); Mean Platelet Volume 11.2 fL (9.4-12.4); Monocytes Absolute Auto 1.3 X10*3/uL (0.1-1.2); Monocytes Percent Auto 10.8 % (2-11); Neutrophils Absolute Auto 8.8 x10*3/uL (2.0-8.3); Neutrophils Percent Auto 72.3 % (45-73); Platelet Count 237 X10*3/uL (160-400); Red Blood Count 6.25 X10*6/uL (4.60-5.80); Red Cell Distribution Width 14.3 % (11.0-16.0); White Blood Count 12.1 X10*3/uL (4.8-10.8)
[2024-08-09 01:34] LABS: Alanine Aminotransferase 41 U/L (0-40); Alkaline Phosphatase 60 U/L (39-117); Anion Gap 12 (12-20); Aspartate Amino Transferase 23 U/L (5-37); Bilirubin Direct 0.2 mg/dL (0.0-0.5); Bilirubin Total 0.7 mg/dL (0.0-1.0); Blood Urea Nitrogen 16 mg/dL (9-16); Calcium 9.9 mg/dL (8.4-10.2); Carbon Dioxide 28 mmol/L (22-29); Chloride 104 mmol/L (96-108); Creatinine Clr Calc Pharmacy 269.8; Estimated Glomerular Filt Rate > 60; Glucose Random 111 mg/dL (60-115); Potassium 4.4 mmol/L (3.3-5.1); Sodium 140 mmol/L (135-145); Total Protein 7.4 g/dL (6.5-8.0)
[2024-08-09 03:27] VITALS: BP 147/82; PULSE 106; RESP 18; TEMP 37.1; O2SAT 99
[2024-08-09] MEDS: Lactated Ringers 1,000 ML 999 ML IV (04:33)
--- NOTE | 2024-08-09 05:05 | PC.NURSE ---
Pt provided with update regarding acceptance and stipulations for transfer to [facility] as the CT machine is unable to accommodate his size. This RN provided nurse to nurse report to VISHAL LYMAN (overnight charge nurse)
[2024-08-09 06:51] VITALS: BP 106/46; PULSE 106; RESP 20; TEMP 37.1; O2SAT 96
[2024-08-09] MEDS: ondansetron HCL 4 MG/2 ML VIAL IVPUSH (07:23)
[2024-08-09 07:31] VITALS: BP 106/46; PULSE 106; RESP 20; TEMP 37.1; O2SAT 96
== END 2024-08-09 07:30 | disposition short-term general hospital (02) ==
PROVIDERS: Emergency Provider Emergency Medicine; PCP Nurse Practitioner Adult Health
DX: R10.11 Right upper quadrant pain (principal); R10.13 Epigastric pain; R10.84 Generalized abdominal pain; R11.2 Nausea with vomiting, unspecified; F17.200 Nicotine dependence, unspecified, uncomplicated; I10 Essential (primary) hypertension; Z79.85 Long-term (current) use of injectable non-insulin antidiabetic drugs; Z79.899 Other long term (current) drug therapy
CPT/HCPCS: 36415; 76705; 80048; 80053; 80076; 83690; 85025; 96365; 96366; 96375; 99285; J1170; J2405; J7120

== ENCOUNTER 2025-03-16 09:35 | Outpatient (AMB) | payer OTHER, SELFPAY ==
--- OUTSIDE RECORDS SUMMARY | 2025-03-16 10:40 | XMS_ITS | Data Portability ---
Author Organization [place] - [facility], [facility] Water Mangle Tender Address [address] [place] [address] Care Team Providers Care Missile Control Pilot Name Role Phone YOHANNES CAREY Primary Care Provider ABE GENAO Carpenter Repair Assessment Encounter Date Assessment Date Assessment LastModified by Organization Details LastModified Time 04/14/2024 04/14/2024 Telehealth appointment. The patient agreed to the telehealth appointment and confirmed they were in a safe and private space to perform the visit. Location of the visit was home in the [employer]. The visit was done over phone. Duration of the visit was _12:33___min. In addition to the patient, no one else participated. lamin Not available 04/14/2024 13:19:35 Plan of Treatment Reminders Order Date Submit Date Provider Last Modified By Organization Details Last Modified Time Details Appointments None recorded. Lab CBC w/ diff [email or web address] [place] [address] - [facility], [address] [place] [address], [address], 4 13:01:27 CMP, serum or plasma 2023 024 [facility], [address] [place] [address], [address], 4 01:36:12 amylase, serum or plasma 2023 024 [facility], [address] [place] [address], [address], 4 01:36:13 lipase, serum or plasma 2023 024 [facility], [address] [place] [address], [address], 4 01:36:14 CBC w/ diff [address], [address] [place] [address], [address], 4 14:06:56 CMP, serum or plasma [address], [address] [place] [address], [address], 4 15:35:10 HbA1c (hemoglob in A1c), blood [address], [address] [place] [address], [address], 4 14:06:56 lipid panel, serum [address], [address] [place] [address], [address], 4 15:35:10 rapid flu (A+B) 2023 024 SANDRA In-Office Order, Internal Use Only DO Not Attach Compendium DO Not Attach Compendium, Do Not Delete/merge, [id number] 4 08:26:28 SARS CoV 2 RNA, QL, NATHANIEL+probe , respirato ry specimen 2023 024 SANDRA In-Office Order, Internal Use Only DO Not Attach Compendium DO Not Attach Compendium, Do Not Delete/merge, [id number] 4 08:27:12 Referral orthopedi c surgeon referral 2023 024 [facility], [address] [place], [address], 5 13:26:43 nutrition ist/rima marin referral - referral to [facility] nutrition : pt is strugglin g w/ BMI > 78 with FIDE, LBP, b/l knee pain, LEON. he was told at [facility] he is too heavy to proceed w/ surgery. pt is about to embark on GLP1/GIP therapy if insurance will cover. pt would like dietary help from nutrition ist. thank you [email or web address] [facility], [address] [facility], [facility], [place], [address], 4 13:16:27 Procedures None recorded. Surgeries None recorded. Imaging None recorded. Medication Orders ondansetr on 8 mg disintegr ating tablet 2023 024 [id number], [address] [place], [address], 4 10:08:17 Mounjaro 2.5 mg/0.5 mL subcutane ous pen injector 2023 024 [email or web address] [facility], [address] [place] [address], [address], 4 15:06:11 Patient TargetsNo targets recorded. 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 he was told at [facility] he is too heavy to proceed w/ surgery. pt is about to embark on GLP1/GIP therapy if insurance will cover. pt would like dietary help from development geologist. thank you Referring Physician: Magdi Villarreal, Internal Medicine, Encounter Date: 04/14/2024 Orthopedic Surgeon Referral for Pain of left wrist Referring Physician: Carey Cervantes, Family Medicine, Encounter Date: 10/18/2024 Results Created Date Observation Date Name Description Value Unit Range Abnormal Flag Note LastModifiedBy Organization Detail LastModifiedTime 03/24/20 24 03/24/2024 SARS CoV 2 RNA, QL, NATHANIEL+p robe, respi rator y speci men Unknown Analyte biankaclaudia lyn al Not Available In-Office Order Internal Use Only DO Not Attach Compendium DO Not Attach Compendium, Do Not Delete/merge, [id number] 03/23/2024 21:28:36 03/24/20 24 03/24/2024 SARS CoV 2 RNA, QL, NATHANIEL+p robe, respi rator y speci men Unknown Analyte neg Not Available In-Off ice Order Internal Use Only DO Not Attach Compendium DO Not Attach Compendium, Do Not Delete/merge, [id number] 03/23/2024 21:28:36 03/24/20 24 03/24/2024 rapid flu (A+B) Flu negati ve Not Available In-Office Order Internal Use Only DO Not Attach Compendium DO Not Attach Compendium, Do Not Delete/merge, [id number] 03/23/2024 21:28:26 08/16/20 24 08/17/2024 COMPR EHENS RELL METAB OLIC PANEL glucose 111 mg/dL 65-99 high Fasti ng refer ence inter jazmín For someo ne witho ut known diabe mary lou, a gluco se value betwe en 100 and 125 mg/dL is consi stent with predi abete s and shoul d be confi rmed with a follo w-up test. Not Available [facility] [place] [facility] [address] [place], [address], 08/17/2024 01:36:09 08/16/20 24 08/17/2024 COMPR EHENS RELL METAB OLIC PANEL urea nitrogen (BUN) 17 mg/dL 7-25 normal Not Available [facility] [place] [facility] [address], [place], [address], 08/17/2024 01:36:09 08/16/20 24 08/17/2024 COMPR EHENS RELL METAB OLIC PANEL creatinine 0.88 mg/dL 0.60-1 .26 normal Not Available [facility] [address], [place], [address], 08/17/2024 01:36:09 08/16/20 24 08/17/2024 COMPR EHENS RELL METAB OLIC PANEL eGFR 118 mL/mi n/1.7 3m2 > or = 60 normal Not Available [facility] [address], [place], [address], 08/17/2024 01:36:09 08/16/20 24 08/17/2024 COMPR EHENS RELL METAB OLIC PANEL BUN/creatini ne ratio SEE NOTE: (calc ) 6-22 Not Repor norma: BUN and Creat inine are withi n refer ence range . Not Available [facility] [address], [place], [address], 08/17/2024 01:36:09 08/16/20 24 08/17/2024 COMPR EHENS RELL METAB OLIC PANEL sodium 136 mmol/ L 135-14 6 normal Not Available [facility] [address], [place], [address], 08/17/2024 01:36:09 08/16/20 24 08/17/2024 COMPR EHENS RELL METAB OLIC PANEL potassium 4.8 mmol/ L 3.5-5. 3 normal Not Available [facility] [address], [place], [address], 08/17/2024 01:36:09 08/16/20 24 08/17/2024 COMPR EHENS RELL METAB OLIC PANEL chloride 103 mmol/ L 98-110 normal Not Available [facility] [address], [place], [address], 08/17/2024 01:36:09 08/16/20 24 08/17/2024 COMPR EHENS RELL METAB OLIC PANEL carbon dioxide 24 mmol/ L 20-32 normal Not Available [facility] [address], [place], [address], 08/17/2024 01:36:09 08/16/20 24 08/17/2024 COMPR EHENS RELL METAB OLIC PANEL calcium 9.2 mg/dL 8.6-10 .3 normal Not Available [facility] [address], [place], [address], 08/17/2024 01:36:09 08/16/20 24 08/17/2024 COMPR EHENS RELL METAB OLIC PANEL protein, total 6.6 g/dL 6.1-8. 1 normal Not Available [facility] [address], [place], [address], 08/17/2024 01:36:09 08/16/20 24 08/17/2024 COMPR EHENS RELL METAB OLIC PANEL albumin 4.0 g/dL 3.6-5. 1 normal Not Available [facility] [address], [place], [address], 08/17/2024 01:36:09 08/16/20 24 08/17/2024 COMPR EHENS RELL METAB OLIC PANEL globulin 2.6 g/dL_ (calc ) 1.9-3. 7 normal Not Available [facility] [address], [place], [address], 08/17/2024 01:36:09 08/16/20 24 08/17/2024 COMPR EHENS RELL METAB OLIC PANEL albumin/glob ulin ratio 1.5 (calc ) 1.0-2. 5 normal Not Available [facility] [place] [facility] [address], [place], [address], 08/17/2024 01:36:09 08/16/20 24 08/17/2024 COMPR EHENS RELL METAB OLIC PANEL bilirubin, total 0.9 mg/dL 0.2-1. 2 normal Not Available [facility] [address], [place], [address], 08/17/2024 01:36:09 08/16/20 24 08/17/2024 COMPR EHENS RELL METAB OLIC PANEL alkaline phosphatase 51 U/L 36-130 normal Not Available [facility] [address], [place], [address], 08/17/2024 01:36:09 08/16/20 24 08/17/2024 COMPR EHENS RELL METAB OLIC PANEL AST 20 U/L 10-40 normal Not Available [facility] [address], [place], [address], 08/17/2024 01:36:09 08/16/20 24 08/17/2024 COMPR EHENS RELL METAB OLIC PANEL ALT 37 U/L 9-46 normal Not Available [facility] [address], [place], [address], 08/17/2024 01:36:09 08/16/20 24 08/17/2024 CBC (INCL UDES DIFF/ PLT) white blood cell count 10.2 thous and/u L 3.8-10 .8 normal Not Available [facility] [address], [place], [address], 08/17/2024 01:36:13 08/16/20 24 08/17/2024 CBC (INCL UDES DIFF/ PLT) red blood cell count 6.68 lb on/uL 4.20-5 .80 high Not Available [facility] [place] [facility] [address], [place], [address], 08/17/2024 01:36:13 08/16/20 24 08/17/2024 CBC (INCL UDES DIFF/ PLT) hemoglobin 19.5 g/dL 13.2-1 7.1 high Verif ied by repea t fide sis. Not Available [facility] [place] [facility] [address], [place], [address], 08/17/2024 01:36:13 08/16/2008/17/2024 CBC (INCL UDES DIFF/ PLT) hematocrit 59.5 % 38.5-5 0.0 high Verif ied by repea t fide sis. Not Available [facility] [place] [facility] [address], [place], [address], 08/17/2024 01:36:13 08/16/20 24 08/17/2024 CBC (INCL UDES DIFF/ PLT) MCV 89.1 fL 80.0-1 00.0 normal Not Available [facility] [place] [facility] [address], [place], [address], 08/17/2024 01:36:13 08/16/2008/17/2024 CBC (INCL UDES DIFF/ PLT) MCH 29.2 pg 27.0-3 3.0 normal Not Available [facility] [place] [facility] [address], [place], [address], 08/17/2024 01:36:13 08/16/2008/17/2024 CBC (INCL UDES DIFF/ PLT) MCHC 32.8 g/dL 32.0-3 6.0 normal Not Available [facility] [place] [facility] [address], [place], [address], 08/17/2024 01:36:13 08/16/20 24 08/17/2024 CBC (INCL UDES DIFF/ PLT) RDW 14.4 % 11.0-1 5.0 normal Not Available [facility] [place] [facility] [address], [place], [address], 08/17/2024 01:36:13 08/16/20 24 08/17/2024 CBC (INCL UDES DIFF/ PLT) platelet count 287 thous and/u L 140-40 0 normal Not Available [facility] [place] [facility] [address], [place], [address], 08/17/2024 01:36:13 08/16/2008/17/2024 CBC (INCL UDES DIFF/ PLT) MPV 12.2 fL 7.5-12 .5 normal Not Available [facility] [place] [facility] [address], [place], [address], 08/17/2024 01:36:13 08/16/20 24 08/17/2024 CBC (INCL UDES DIFF/ PLT) absolute neutrophils 6905 cells /uL 1500-7 800 normal Not Available [facility] [place] [facility] [address], [place], [address], 08/17/2024 01:36:13 08/16/20 24 08/17/2024 CBC (INCL UDES DIFF/ PLT) absolute lymphocytes 2060 cells /uL 850-39 00 normal Not Available [facility] [place] [facility] [address], [place], [address], 08/17/2024 01:36:13 08/16/2008/17/2024 CBC (INCL UDES DIFF/ PLT) absolute monocytes 969 cells /uL 200-95 0 high Not Available [facility] [address], [place], [address], 08/17/2024 01:36:13 08/16/20 24 08/17/2024 CBC (INCL UDES DIFF/ PLT) absolute eosinophils 245 cells /uL 15-500 normal Not Available [facility] [place] [facility] [address], [place], [address], 08/17/2024 01:36:13 08/16/20 24 08/17/2024 CBC (INCL UDES DIFF/ PLT) absolute basophils 20 cells /uL 0-200 normal Not Available [facility] [place] [facility] [address], [place], [address], 08/17/2024 01:36:13 08/16/20 24 08/17/2024 CBC (INCL UDES DIFF/ PLT) neutrophils 67.7 % normal Not Available [facility] [place] [facility] [address], [place], [address], 08/17/2024 01:36:13 08/16/20 24 08/17/2024 CBC (INCL UDES DIFF/ PLT) lymphocytes 20.2 % normal Not Available [facility] [place] [address], [place], [address], 08/17/2024 01:36:13 08/16/20 24 08/17/2024 CBC (INCL UDES DIFF/ PLT) monocytes 9.5 % normal Not Available [facility] [place] [facility] [address], [place], [address], 08/17/2024 01:36:13 08/16/20 24 08/17/2024 CBC (INCL UDES DIFF/ PLT) eosinophils 2.4 % normal Not Available [facility] [place] [address], [place], [address], 08/17/2024 01:36:13 08/16/20 24 08/17/2024 CBC (INCL UDES DIFF/ PLT) basophils 0.2 % normal Not Available [facility] [place] [facility] [address], [place], [address], 08/17/2024 01:36:13 08/16/20 24 08/17/2024 AMYLA SE amylase 28 U/L 21-101 normal Not Available [facility] [place] [facility] [address], [place], [address], 08/17/2024 01:36:13 08/16/20 24 08/17/2024 LIPAS E lipase 9 U/L 7-60 normal Not Available [facility] [place] [facility] [address], [place], [address], 08/17/2024 01:36:14 Result Notes None recorded. Problems Name Problem SNOMED Code Status Onset Date Resolution Date Notes Provider Name and Address Organization Details Recorded Time Morbid obesity 883533142 Active Not Available [facility] 3 20:58:36 Sleep apnea 43785796 Active 07/2022 Moderate , CPAP Not Available [facility] 3 20:58:37 Obesity 571842521 Active Not Available [facility] 3 20:58:36 Benign essentia l hyperten everardo 0550311 Completed 10/09/2018 Apollo Madrigal MD [address] [place] [address], [address], [facility] - [facility] 8 11:26:50 Asthma 956433779 Completed 05/03/2014 Moisés hu DO [address] [place] [address], [address], [facility] 4 14:22:19 Vitamin D deficien cy 37154722 Active Not Available [facility] 3 20:58:36 Tobacco dependen ce syndrome 31671095 Active Not Available [facility] 3 20:58:37 Low back pain 469064272 Active 2017 Not Available [facility] 3 20:58:36 White blood cell disorder 85502008 Active 2017 Not Available [facility] 3 20:58:36 Abnormal liver function 03983132 Active 2017 steatohe patitis by ultrasou nd Not Available [facility] 3 20:58:37 Abdomina l pain 51373162 Active 2017 Not Available [facility] 3 20:58:36 Essentia l hyperten everardo 11978305 Active 2021 Not Available [facility] 3 20:58:37 Body mass index 40+ - severely obese 096078095 Active 2021 Not Available [facility] 3 20:58:36 Epididym itis 94908674 Active 2021 Not Available [facility] 3 20:58:36 Chest pain 73926185 Active 2022 Carey Cervantes NP [address] [place] [address], [address], [facility] [employer] [facility] 3 15:54:47 Anxiety 27883020 Active 2022 Carey Cervantes NP [address] [place] [address], [address], [facility] 3 15:54:49 Notes:Some problems listed i n Documents: #[id number], #[id number] could not be added to this patient's chart. Please review these documents and add these problems to the patient's chart manually as needed. Problem Notes None recorded. Procedures Surgical History Date Name Laterality Status Provider Name and Address Organization Details Recorded Time 023 cardiac catheterization completed Carey Cervantes NP [address] [place] [address], [address], [facility] [employer] 04/04/2024 19:41:13 014 Smoking Cessation 3 to 10 min completed Moisés Lam DO [address] [place] [address], [address], [facility] 05/03/2014 14:41:29 Tonsillectomy/[place] oids completed Moisés Lam DO [address] [place] [address], [address], [facility] 05/03/2014 14:13:54 Imaging Results None recorded. Procedure Notes None recorded. Medical Equipment None Reported. Allergies No known drug allergies Medications Name Sig Start Date Stop Date Status Note LastModified by Organization Details LastModified Time cyclobenz aprine 10 mg tablet Take 1 tablet every day by oral route at bedtime. 11/02 completed Not Available Not Available Not Available amoxicill in 500 mg capsule 11/02 completed not taking Not Available Not Available Not Available doxycycli ne hyclate 100 mg capsule 04/14 completed Not Available Not Available Not Available nicotine 14 mg/24 hr daily transderm al patch Apply 1 patch every day by transder mal route. 10/30 completed Not Available Not Available Not Available azithromy kristen 250 mg tablet 11/04 completed Not Available Not Available Not Available ibuprofen 800 mg tablet Take 1 tablet 3 times a day by oral route as needed. 11/02 completed Not Available Not Available Not Available nicotine (polacril ex) 2 mg gum Chew 1 piece of gum every 2 hours by oral route. 01/01 completed Not Available Not Available Not Available hydrocodo ne 5 mg-acetam inophen 325 mg tablet 11/02 completed not taking/p t Not Available Not Available Not Available fluconazo le 200 mg tablet 05/14 completed Not Available Not Available Not Available lisinopri l 20 mg tablet Take 1 tablet every day by oral route. active Not Available Not Available No t Available prednison e 20 mg tablet 11/02 completed Not Available Not Available Not Available aspirin 81 mg tablet,de layed release Take 1 tablet every day by oral route. 03/23 completed Not Available Not Available Not Available ondansetr on 8 mg disintegr ating tablet Place 1 tablet twice a day by translin gual route. active Not Available Not Available No t Available oxycodone -acetamin ophen 5 mg-325 mg tablet 11/02 completed not taking Not Available Not Available Not Available famotidin e 20 mg tablet active Not Available Not Available Not Available vitamin A 3,000 mcg (10,000 unit) capsule 03/23 completed done Not Available Not Available Not Available benzonata te 100 mg capsule 11/02 completed Not Available Not Available Not Available cephalexi n 500 mg capsule 07/11 completed Not Available Not Available Not Available lisinopri l 10 mg tablet Take 1 tablet every day by oral route. 04/04 completed increase d to 20 mg Not Available Not Available Not Available nicotine 21 mg/24 hr daily transderm al patch Apply 1 patch every day by transder mal route. 11/02 completed not taking/p t Not Available Not Available Not Available Iophen C-NR 10 mg-100 mg/5 mL oral liquid 10/30 completed Not Available Not Available Not Available lorazepam 1 mg tablet Take 1 tablet twice a day by oral route. 03/23 completed nt Not Available Not Available Not Available levofloxa kristen 500 mg tablet 03/12 completed Not Available Not Available Not Available methylpre dnisolone 4 mg tablets in a dose pack take as directed 07/09 completed not taking Not Available Not Available Not Available albuterol sulfate HFA 90 mcg/actua tion aerosol inhaler 11/02 completed Not Available Not Available Not Available Vitamin B-1 100 mg tablet 03/23 completed done Not Available Not Available Not Available ondansetr on 4 mg disintegr ating tablet 03/23 completed nt Not Available Not Available Not Available cefdinir 300 mg capsule 10/30 completed Not Available Not Available Not Available amoxicill in 875 mg-potass ium clavulana te 125 mg tablet 11/02 completed Not taking Not Available Not Available Not Available nicotine 7 mg/24 hr daily transderm al patch Apply 1 patch every day by transder mal route. 03/23 completed Not Available Not Available Not Available Pneumovax -23 25 mcg/0.5 mL injection syringe 10/30 completed Not Available Not Available Not Available oxycodone 01/01 completed Not Available Not Available Not Available varenicli ne tartrate 1 mg tablet one half tablet po daily for 3 days, one half tablet po BID for 4 days then one tablet BID 03/23 completed NOT TAKING Not Available Not Available Not Available cholecalc iferol (vitamin D3) 1,250 mcg (50,000 unit) capsule Take 1 capsule every week by oral route. 2012 active Not Available Not Available Not Avai lable diclofena c 1 % topical gel APPLY 2 GRAMS TO THE AFFECTED AREA(S) BY TOPICAL ROUTE 4 TIMES PER DAY 11/02 completed Not Available Not Available Not Available cholecalc iferol (vitamin D3) 50 mcg (2,000 unit) tablet active Not Available Not Available Not Available Fluarix Quad 4077-0879 (PF) 60 mcg (15 mcg x 4)/0.5 mL IM syringe 10/30 completed Not Available Not Available Not Available Wegovy 0.25 mg/0.5 mL subcutane ous pen injector Inject 0.25 mg every week by subcutan eous route for 28 days. active stopped Not Available Not Available No t Available Mounjaro 2.5 mg/0.5 mL subcutane ous pen injector Inject by subcutan eous route for 28 days. 2023 active Not Available Not Available Not Avai lable Vitals Date Recorded Body height Body temperature Respiratory rate Oxygen saturation Oxygen saturation in Arterial blood by Pulse oximetry Heart rate Systolic blood pressure Diastolic blood pressure Provider Name and Address Organization Details Last Updated DateTime 4 180.34 cm 97.1 [degF] 18 /min 97 % 97 % 95 /min 194 mm[Hg] 77 mm[Hg] Santa Peoples CMA [facility] 14:17:48 Date Recorded Systolic blood pressure Diastolic blood pressure Provider Name and Address Organization Details Last Updated DateTime 03/23/2024 132 mm[Hg] 84 mm[Hg] MAGDI VILLARREAL MD [address] [place] [address], [address], [place] [facility] 03/23/2024 15:00:59 Date Recorded Body height Body mass index (BMI) Body weight Respiratory rate Body temperature Heart rate Oxygen saturation Oxygen saturation in Arterial blood by Pulse oximetry Systolic blood pressure Diastolic blood pressure Provider Name and Address Organization Details Last Updated DateTime 4 180.34 cm 79.4 kg/m2 136884. 76 g 16 /min 99.1 [degF] 105 /min 97 % 97 % 127 mm[Hg] 86 mm[Hg] Caitlin Guillory MA [facility] 15:10:01 Date Recorded Body height Body mass index (BMI) Body weight Oxygen saturation Oxygen saturation in Arterial blood by Pulse oximetry Heart rate Body temperature Provider Name and Address Organization Details Last Updated DateTime 180.34 cm 79.6 kg/m2 127499. 24 g 96 % 96 % 91 /min 98 [degF] Liya Moulton, [employer]AFETY TEACHER [address] [place], [address], [place] [facility] 13:59:31 Date Recorded Systolic blood pressure Diastolic blood pressure Provider Name and Address Organization Details Last Updated DateTime 10/18/2024 138 mm[Hg] 86 mm[Hg] Carey Cervantes, N [address] [place], [address], [place] [facility] 10/18/2024 14:21:11 Social History Question Answer Notes LastModified by Organizat ion Details LastModified Time Tobacco Smoking Status Current Every Day Smoker Constance burr, [place] [facility] 12/25/2012 14:06:49 What Is Your Level Of Alcohol Consumption? None Information not available 12/25/2012 What Is Your Level Of Caffeine Consumption? Occasional Information not available 12/25/2012 What Type Of Diet Are You Following? REGULAR Information not available 11/02/2021 Which Illicit Or Recreational Drugs Have You Used? 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 [facility] Informa tion not available 07/11/2023 Dental Care Received In Past 6 Months? Yes silvana Information not available 07/11/2023 Language Rwandan Information no t available 07/07/2018 Country Of Origin [place] Informa tion not available 07/07/2018 Dietary Regular Information no t available 07/07/2018 Marital Status Single Informati on not available 12/25/2012 What Was The Date Of Your Most Recent Tobacco Screening? 10/18/2024 [email or web address] Information not available 10/18/2024 Seat Belts Used Routinely Yes Information not available 07/07/2018 Smoke Alarm In Home Yes Information not available 07/07/2018 At What Age Did You Start Smoking Tobacco? 21 Information not available 12/25/2012 How Much Tobacco Do You Smoke? 0.25 PPD Information not available 12/25/2012 General Stress Level Medium Information not available 07/07/2018 Do You Use Sunscreen Routinely? Yes Information not available 07/07/2018 How Many Years Have You Smoked Tobacco? 10 Information not available 11/02/2021 Sex: Male Functional Status Question Answer Note LastModified by Organizat ion Details LastModified Time What is your exercise level? Occasional Information not available 07/07/2018 Mental Status None recorded. Family History Nothing Reported Notes:Updated 07/07/18 SR Medical History Condition Response Gout N Anxiety/Depression N Gynecologic problems N Hernia N Developmental or Behavioral Disorders N Blood Pressure High or Low N Breast Problem N Muscle, Joint, or Bone Problems N Arthritis N Cancer (of any kind) N Defects or Inherited Diseases N Stroke N Headache N Dizziness or Fainting N Anemia, Blood Clot, or Bleeding Disorder N Seizures or Convulsions N Asthma, COPD, Breathing or Lung Disorder Y Cardiac History, Heart Murmur, HI N Eye or Vision Problems N Thyroid Problems N GI Problems N Skin Problems N Food or Environmental Allergies N Diabetes N Bladder,Kidney Problems or Recurrent UTI 's N Bleeding Disorder N Prostate issues, ED or Sexual Problem N Insomnia N Cholesterol High or Low N Chronic Pain N Ear Nose & Throat (ENT) Problems N Neuropathy N Osteoporosis N Liver Disease or Hepatitis N Immunizations Vaccine Type Date Status Note Provider Nam e and Address Organization Details Recorded Time Influenza, split virus, trivalent, preservative 3 completed Not Available [facility] 12/18/2019 02:38:28 Influenza, MDCK, quadrivalent, preservative 1 completed Apollo Madrigal MD [address] [place] [address], [id number], [facility] 11/02/2021 16:54:52 Hep B, unspecified formulation 3 completed Not Available [facility] 03/06/2023 20:58:37 Hep B, unspecified formulation 3 completed Not Available [facility] 03/06/2023 20:58:37 Hep B, unspecified formulation 4 completed Not Available [facility] 03/06/2023 20:58:37 Tdap 1 completed Not Available [facility] 03/06/2023 20:58:37 MMR 4 completed Not Available [facility] 03/06/2023 20:58:37 MMR 3 completed Not Available [facility] 03/06/2023 20:58:37 Past Encounters Encounter ID Performer Location Encounter Start Date Encounter Closed Date Diagnosis/Indication Diagnosis SNOMED-CT Code Diagnosis ICD10 Code Diagnosis Note [id number] Constance Kelley [address] [place] [address] 12/25/2012 13:50:23 12/25/2012 14:58:45 [id number] Kit Cullen MD [address] [place] [address] 01/18/2013 13:36:30 01/18/2013 15:52:02 [id number] Rose Marie Shubham [address] [place] [address] 02/18/2013 12:29:45 02/18/2013 13:25:09 [id number] Kit Cullen MD [address] [place] [address] 02/19/2013 13:41:10 02/19/2013 16:03:[id number] [place] [address] 05/03/2014 13:41:41 05/03/2014 16:30:55 Morbid obesity [id number] Patient is 427 lbs with BMI of 64%, he has lost 20lbs with increased physical activity over the last 3 months. He has no interest in nutritiona l counseling . Lifestyle modificati ons, including exercise, diet, decreased sodium intake and smoking cessation were discussed with the patient. He reports he is aware that his weight is an issue, however he doesn't want to make any changes currently as he feels working 3 jobs he is more active then usual and has been losing weight. He was asked about his interest in bariatric surgery and he declined. Patient acknowledg ed he is aware we are here to support him should he change his mind, and feel he is not making enough weight loss progress on his own. Increased blood pressure [id number] Patient has had 2 reading of elevated blood pressures today is 142/70. Patient is aware that his weight and smoking may be contributi ng to his elevated blood pressure. He has agreed to come back for a bp screening in 2 weeks. He will also attempt to reduce sodium intake. He has no interest in smoking cessation, or additional weight loss support. Tobacco de pendence syndrome [id number] Patient has been smoking since age 21, he reports no interest in smoking cessation, I discussed the options of smoking cessation counseling and support, including medication s, nicotine supplement ation such as patches and gums. Patient has declined and will continue with his current habit. He acknowledg es that he is aware of the risks involved with smoking including htn, heart disease, lung disease, and cancer. [id number] Payal Hartley MD [address] [place] [address] 06/30/2014 14:40:45 06/30/2014 15:41:47 Acute pharyngitis [id number] Payal Hartley MD [address] [place] [address] 11/04/2016 08:23:26 11/04/2016 09:25:24 Morbid obesity 432702348 E66.01 Patient is 476 lbs with BMI of 68.8%, he has gained 39lbs since his last visit in 2013.He has used exercise program in the past([employer]) and he reports no improvemen t in his weight loss. He does not use gym as often as he used , he walks 30 min a day /5 day a week.He has no interest in nutritiona l counseling .His blood pressure is 138/78 today in office but in other appointmen t his BP has been noticed to be borderline high. He has history of FIDE. His HbA1c was 5.5 on 2013, no fasting blood sugar since then. He is interested in bariatric surgery as he feel he is not making enough weight loss progress on his own. Will send referral to bariatric surgeons and Lifestyle modificati ons, including exercise, diet, decreased sodium intake were discussed with the patient.Wi ll recheck fasting sugars. Tobacco de pendence syndrome 36767177 F17.290 Patient is has been smoking since age 21(1 ppd for past 5years) and is trying to cut down to 1/2 PPD for the past last weeks. He is willing to try quiting smoking for which i strongly encouraged . He has tried to quit cold turkey in the past and has not been succesful due to nicotine withdrawal ..He is interested in smoking cessation, with goal date the end of the year.I discussed the options of smoking cessation counseling and support, including medication s, nicotine supplement ation such as patches and gums.He wants to try with chantix- side effects were discussed with patient. Will give nicotine patch and gums and start chantix.Wi ll follow closely how he is doing with smoking cessation on the future visits [id number] Pal Reyes MD [address] [address] 10/30/2017 14:46:17 10/30/2017 16:09:46 Postoperative visit [id number] Z09 post operative visit after appendecto my, no complicati on.Recomme ded to follow up with surgeon on scheduled appointmen t on 11/12. Morbid obesity 581201713 E66.01 morbid obesity with BMI of 67.9. His TSH and Hba1c on normal range. BP is borderline high. on today visit 140/86. recommende d to keep a diary of his BP at home checking 3 times a week and call office if he notice high BP readings.R ecommended to continue with physical activity and bariatric nutritions . Tobacco de pendence syndrome 83620091 F17.200 quit smoking 5 days ago ,currently on nicotine patch 14mg.. no nicotine craving. Smoking cessation discussed. Will prescripe the gayathri of 7 mg when he finish the 14 mg patch also the nicotine gums as needed. He refuses any oral agent to help with smoking cessation. [id number] Payal Hartley MD [address] [place] [address] 01/01/2018 15:12:05 01/01/2018 16:06:25 Morbid obesity 145405335 E66.01 morbid obesity with BMI of 69.9. His TSH and HbA1c on normal range. BP is borderline high at home up to 145 systolic.D iscussed the life style changes including exercising , diet modificati on eliminatin g sodas, fast food, mostly to use vegetables , fruits , decrease snack, decrease meal size and also will refer to nutritioni st also and to bariatric surgery. Low back pain 542807372 M54.5 Low back pain for the last 6 months radiating to mid pack w/o any neurologic al deficit. Pain started after some work injury as per patient reports and has not improved with physical therapy.Do es not seem as radiculopa thy , ostearthri tis or inflammato ry/rheumat ologic disease. Most likely this is a musculoske letal back pain and it is very important that he loose weight with a extremely high weight increases pressure to the spine. Recommende d to exercise which can help with weight loss but also it will help with strengthen ing of back muscle. Meanwhile will prescribe ibuprophen as needed for back pain and since pain is going for the last 6 months will obtain a lumbar spine Xray. [id number] Apollo Madrigal MD [address] [place] [address] 05/06/2018 15:33:23 05/06/2018 16:09:21 Low back pain 406557131 M54.5 back pain x 08/2017, after lifting a case, also a torn R bicep tendon, 7 mo of PT/ occupation al health. question of spondyloly sis L5 on XR , treatment with acetaminop hen, short course of muscle relaxer, but presents today because of persistent back discomfort rads up and down to hips, can walk/ stand 20 min , then pain , pt needs to sit down the patient was unable to return to workdue to persistent symptoms we'll proceed with MRI to confirm abnormalit y identified on LS X RLow she'll initiate cyclobenza phil at bedtime with side effects precaution s and instructio ns Adult heal th examination 149090473 Z00.00 update lab work and follow-up for CPE Tobacco user 177748264 Z 72.0 initiate nicotine patch, counseled patient in detail including using patch and tobacco, currently Body mass index 40+ - severely obese 097803771 Z68.44 we'll rediscusse d diet etc. at a follow-up visit [id number] Apollo Madrigal MD [address] [place] [address] 05/27/2018 14:41:58 05/27/2018 15:25:06 Increased blood pressure 55975578 R03.0 discussed NSA diet, exercise patient tolerated, and weight control Low back pain 946563500 M54.5 back pain x 08/2017, after lifting a case, also a torn R bicep tendon, 7 mo of PT/ occupation al health. question of spondyloly sis L5 on XR , treatment with acetaminop hen, short course of muscle relaxer, but presents today because of persistent back discomfort rads up and down to hips, can walk/ stand 20 min , then pain , pt needs to sit down the patient was unable to return to workdue to persistent symptoms we'll proceed with MRI to confirm , abnormalit y identified on LS X R, however we were unable to complete the MRI due to insurance denial, he will discuss further with WC .initiated cyclobenza phil at bedtime with side effects precaution s and instructio nshopefull y OT will continue Tobacco user 417910690 Z 72.0 initiate nicotine patch, counseled patient in detail including using patch and tobacco, partial response thus far [id number] Apollo Madrigal MD [address] [address] 06/23/2018 14:41:28 06/23/2018 15:43:40 Low back pain 036042746 M54.5 back pain x 08/2017, after lifting a case, also a torn R bicep tendon, 7 mo of PT/ occupation al health. question of spondyloly sis L5 on XR , treatment with acetaminop hen, short course of muscle relaxer, but presents today because of persistent back discomfort rads up and down to hips, can walk/ stand 20 min , then pain , pt needs to sit down the patient was unable to return to workdue to persistent symptoms we'll proceed with MRI to confirm , abnormalit y identified on LS X R, however we were unable to complete the MRI due to insurance denial, he will discuss further with WC .continue cyclobenza phil at bedtime with side effects precaution s and instructio nsrestart ibuprofen 800 mg 3 times a day when necessary, a tapering course of methylpred nisolone, and a reevaluati on in 1 week or sooner as instructed , other measures also discussed Increased blood pressure 24480363 R03.0 discussed NSA diet, exercise patient tolerated, and weight control, recheck BP in 1 week [id number] Apollo Madrigal MD [address] [place] [address] 07/09/2018 10:54:40 07/09/2018 11:35:09 Benign essential hypertension 3591719 I10 Low back pain 656735685 M54.5 back pain x 08/2017, after lifting a case, also a torn R bicep tendon, 7 mo of PT/ occupation al [employer]. question of spondyloly sis L5 on XR , treatment with acetaminop hen, short course of muscle relaxer, but presents today because of persistent back discomfort rads up and down to hips, can walk/ stand 20 min , then pain , pt needs to sit down the patient was unable to return to workdue to persistent symptoms we'll proceed with MRI to confirm , abnormalit y identified on LS X R, however we were unable to complete the MRI due to insurance denial, he will discuss further with WC .continue cyclobenza phil at bedtime with side effects precaution s and instructio nsrestart ibuprofen 800 mg 3 times a day when necessary, a tapering course of methylpred nisolone, with some improvemen t in symptoms. It is difficult to proceed further without an MRI ,noncontra sted ,of the lumbar spine, for now he will continue with previous treatment. patient requested all his records be sent to the law offices of [employer] and that fax # is: [phone] XENIA FUNES NP [address] [place] [address] 09/17/2018 13:23:06 09/17/2018 13:40:59 Abdominal pain 26407286 R10.9 Predominan tly RUQ based. Hx of elevated LFT's I will recheck labs and order US. Possible gallstone. Advised if fever, chills, increased pain, N/V occurs go to ER. [id number] Apollo Madrigal MD [address] [place] [address] 10/09/2018 10:44:46 10/09/2018 11:24:36 Abnormal liver function 44175068 K76.89 steatohepa titis confirmed by ultrasound , Hep testing neg, will need Hep B immunizati on Tobacco de pendence syndrome 13790673 F17.200 no tobacco for several months Increased blood pressure 49753922 R03.0 discussed NSA diet, exercise patient tolerated, and weight control, BP variabilit y continues we will monitor Low back pain 149622803 M54.5 back pain x 08/2017, after lifting a case, also a torn R bicep tendon, 7 mo of PT/ occupation al [employer]. question of spondyloly sis L5 on XR , treatment with acetaminop hen, short course of muscle relaxer, but presents today because of persistent back discomfort rads up and down to hips, can walk/ stand 20 min , then pain , pt needs to sit down the patient was unable to return to workdue to persistent symptoms we'll proceed with MRI to confirm , abnormalit y identified on LS X R,continue cyclobenza phil at bedtime with side effects precaution s and instructio nsrestart ibuprofen 800 mg 3 times a day when necessary, a tapering course of methylpred nisolone, with some improvemen t in symptoms. It is difficult to proceed further without an MRI ,noncontra sted ,of the lumbar spine, for now he will continue with previous treatment. patient requested all his records be sent to the law offices of [employer] and that fax # is: [phone] 44MRI shows mild degenerati on that really does not explain his symptoms, we'll proceed with pain management evaluation as it does not appear to be a surgical problem [id number] Apollo Madrigal MD [address] [place] [address] 10/20/2019 12:50:52 10/20/2019 13:33:26 Adult health examination 787115250 Z00.00 HM discussed in detail with patient Tobacco de pendence syndrome 81804162 F17.200 unfortunat german has restarted tobacco Vitamin D deficiency 347 00641 E55.9 update serum vitamin D Morbid obesity 098968562 E66.01 last BMI of 73, unable to obtain today due to scale capacity, reinforced appropriat e diet and activity and weight controlPat ient is certainly a candidate for bariatric surgery Hypertensive disorder 38 194003 I10 elevated BP on recheck, initiate lisinopril 10 mg daily with side effects precaution s and instructio ns [id number] Apollo Madrigal MD [address] [place] [address] 11/03/2020 15:52:23 2020 08:37:33 Upper respiratory infection 98666680 J06.9 seems viral, instructed on symptomati c treatment, proceed with Covid testing, Patient will make arrangemen ts Increased blood pressure 30187628 R03.0 discussed NSA diet, exercise patient tolerated, and weight control, BP variabilit y continues we will monitorLas t blood pressure checked was stable [id number] Apollo Madrigal MD [address] [address] 08/10/2021 08:18:46 08/10/2021 08:46:43 Knee pain 99547896 M25.569 problems with right knee discomfort worse over the past several weeks, seems to be activity related, has no recent history of injury or traumaExam was difficult, we'll proceed with XR, instructed on ice, R OM, diclofenac gel, follow-up pending XR Increased blood pressure 84423033 R03.0 discussed NSA diet, exercise patient tolerated, and weight control, BP variabilit y continues we will monitornot ed elevated BP, follow-up appointmen t is pending [id number] Apollo Madrigal MD [address] [place] [address] 11/02/2021 16:00:59 11/02/2021 16:58:54 Influenza vaccine needed 2492021407 106 Z23 Adult heal th examination 736165673 Z00.00 discussed in detail with patient, Update lab work Vitamin D deficiency 347 27194 E55.9 update serum vitamin D Tobacco de pendence syndrome 40865769 F17.200 unfortunat german has restarted tobacco, agreeable to a trial of vareniclin e, with side effects precaution s and instructio ns Essential hypertension 11091101 I10 reinforced previous recommenda tions for appropriat e diet and activity and weight control, restart lisinopril 10 mg daily [id number] Apollo Madrigal MD [address] [place] [address] 12/05/2021 16:34:00 12/06/2021 13:56:42 Influenza-like illness 09305115 B34.9 in the ER for nausea and vomiting, myalgias he was Covid negative, and negative with retesting, still with congestion chills mild cough off and on headache, L BMsDenies wheezing or hemoptysis Continue with symptomati c treatment, dietary adjustment , follow-up if he does not continue to improve Increased blood pressure 40394797 R03.0 discussed NSA diet, exercise patient tolerated, and weight control, BP variabilit y continues we will monitorLas t BPin the ER 141/87 [id number] Carey Cervantes NP [address] [place] [address] 04/01/2022 09:12:52 04/01/2022 09:42:32 Essential hypertension 12535612 I10 Uncontroll ed hypertensi on when patient is not taking lisinopril .Restart lisinopril 10 mg daily, prescripti on sent to pharmacy. Labs ordered, assess renal function Follow up in one month Educated the patient on the importance of taking medication s as instructed proper dosing as well as side effects reviewed with the patient. - Educated the patient on the importance of low salt diet less than 2 gm daily - Educated the patient on the importance of eating a healthy diet, with a variety of food including fruits, vegetables and protein. - Educated on the importance of routine regular exercise for 30 min a day 5 days a week - Educated the patient on the importance of monitoring blood pressures outside of the office at least twice a week if readings are persistent ly greater then 140/90 notify the office Snoring 95407729 R06.83 Ordered sleep study Vitamin D deficiency 347 74068 E55.9 Checked Vit D level Body mass index 40+ - severely obese 831838368 Z68.45 BMI 76Referred patient to nutritioni . Portion control, healthy food options, increase exercise Patient referred to bariatric surgery consult Smoker 66939346 F17.200 Smoking cessation advised [id number] ROBERTA STORM NP [address] [place] [address] 06/25/2022 12:38:24 06/25/2022 12:54:33 Acquired hydrocele 963847835 N43.3 referring to urology for f/u Epididymitis 49035596 N4 5.1 swelling and pain improved with abx, refering to urology for f/u [id number] Keaton Sarmiento [address] [place] [address] 09/19/2022 11:32:46 09/19/2022 12:40:44 Dietary management surveillance 494663301 Z71.3 Diet education 81350431 Z71.3 Obesity 823789217 E66.9 [id number] Caitlin Guillory MA [address] [place] [address] 03/12/2023 14:49:30 03/12/2023 15:38:20 Chest pain 13385360 R07.9 Order STAT treadmill stress test.Refer to cardiology .Inform patient chest pain comes back go immediatel y to the ER or call 911. Essential hypertension 59836418 I10 Controlled hypertensi on on lisinopril 10 mg daily, prescripti on sent to pharmacy.Chanel nino UTDFollow up in one month Educated the patient on the importance of taking medication s as instructed proper dosing as well as side effects reviewed with the patient.- Educated the patient on the importance of low salt diet less than 2 gm daily-Educ ate the patient on the importance of eating a healthy diet, with a variety of food including fruits, vegetables and protein.- Educated on the importance of routine regular exercise for 30 min a day 5 days a week- Educated the patient on the importance of monitoring blood pressures outside of the office at least twice a week if readings are persistent ly greater then 140/90 notify the office Anxiety 08050144 F41.9 Patient was given a prescripti on for Ativan take 1 tablet twice a day as needed [id number] Carey Cervantes NP [address] [place] [address] 03/28/2023 10:40:21 03/28/2023 11:23:18 Essential hypertension 50512310 I10 Controlled hypertensi on on lisinopril 10 mg daily, prescripti on sent to pharmacy.Chanel Ronquillo up in one month Educated the patient on the importance of taking medication s as instructed proper dosing as well as side effects reviewed with the patient.- Educated the patient on the importance of low salt diet less than 2 gm daily-Educ ate the patient on the importance of eating a healthy diet, with a variety of food including fruits, vegetables and protein.- Educated on the importance of routine regular exercise for 30 min a day 5 days a week- Educated the patient on the importance of monitoring blood pressures outside of the office at least twice a week if readings are persistent ly greater then 140/90 notify the office Chest pain 73571884 R07. 9 Unable to do treadmill stress test related to patient's weight.Has an appointmen t with cardiology already 05/15, needs referral for cardiac cathInform patient chest pain comes back go immediatel y to the ER or call 911. [id number] Carey Cervantes NP P [address] [address] 05/14/2023 11:10:21 05/14/2023 12:07:36 Chest pain 85725211 R07.9 Unable to do treadmill stress test related to patient's weight.Has an appointmen t with cardiology already 05/15, needs referral for cardiac cathInform patient chest pain comes back go immediatel y to the ER or call 911. Essential hypertension 00286082 I10 Controlled hypertensi on on lisinopril 10 mg daily, prescripti on sent to pharmacy.Chanel Ronquillo up in one month Educated the patient on the importance of taking medication s as instructed proper dosing as well as side effects reviewed with the patient.- Educated the patient on the importance of low salt diet less than 2 gm daily-Educ ate the patient on the importance of eating a healthy diet, with a variety of food including fruits, vegetables and protein.- Educated on the importance of routine regular exercise for 30 min a day 5 days a week- Educated the patient on the importance of monitoring blood pressures outside of the office at least twice a week if readings are persistent ly greater then 140/90 notify the office Morbid obesity 537620813 E66.01 Patient lost 18 pounds and has been going to a bariatric program in [facility] with weight loss Sleep apnea 08241230 G47 .30 Patient uses CPAP Tobacco de pendence syndrome 59622316 F17.200 Prescribe Bebeto hoffman cessation highly advised [id number] Carey Cervantes NP P [address] [place] [address] 07/11/2023 09:43:13 07/11/2023 10:42:14 Essential hypertension 93222798 I10 Well-contr olled hypertensi on on 10 mg of lisinopril . BP today 152/79Labs UTDFollow up in 3 month Educated the patient on the importance of taking medication s as instructed proper dosing as well as side effects reviewed with the patient.- Educated the patient on the importance of low salt diet less than 2 gm daily-Educ ate the patient on the importance of eating a healthy diet, with a variety of food including fruits, vegetables and protein.- Educated on the importance of routine regular exercise for 30 min a day 5 days a week- Educated the patient on the importance of monitoring blood pressures outside of the office at least twice a week if readings are persistent ly greater then 140/90 notify the office Sleep apnea [id number] G47 .30 Patient uses CPAP every night Obesity [id number] E66.9 Goal 500 lbs, continue with weight loss, dietary modificati ons, portion control and exercise. Chest pain [id number] R07. 9 Unable to do treadmill stress test related to patient's weight.Ashley amaya has an appointmen t with cardiology in [place] 07/29/23[facility] patient chest pain comes back go immediatel y to the ER or call 911. Filled out disability paperwork unable to return back to work until cleared by cardiology [id number] MAGDI VILLARREAL MD P [address] [place] [address] 03/23/2024 14:08:06 03/23/2024 15:12:04 Viral upper respiratory tract infection [id number] J06.9 mild cough, congestion , sore throat and fatigue.co vid and flu swabs negataive. today day 4 of sx.support rell care, rest, fluids, acetaminop hen.counse led on typical disease course, warning signs, and indication s for urgent and emergent evaluation . all questions answered. follow-up if symptoms persist or worsen. Morbid obesity [id number] E66.01 -- dima has been working with [place] [facility]. he dropped his wt from 560 to 515 to qualify for surgery, but they recently told him he now needs to drop to 450 to qualify for gastric bypass. they've changed the parameters on him. dima has an appt set up with PCP to discuss starting GLP1 to help him get to goal wt to qualify for the surgery. he's not sure he can do it on his own w/o that added help, though he continues to work on his diet.-- note, dima reports he is followed by [place] [facility] and he was sent to cardiac cath at [facility] for atypical chest pain. he says the cath was negative. he signed releases today for records from [facility] (the cath) and from [place] [facility] -- counseled on smoking cessation. this will help w/ recovery from URI and also is important as he heads towards surgery. he's down to 1/4 ppd.-- BP controlled on lisinopril when rechecked w/ proper fitting thigh cuff on upper arm.-- FIDE, using cpap nightly. sleeping well w/ it. 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 he gets out of breath easily. pt has FIDE with nocturnal hypoxia. pt has chronic LBP and bilateral knee pain. pt has done well working on diet and keeping his physical activity up, but his health, well-being , and work capacity are severely impaired by his heavy weight. Pt was told he is too heavy to be considered for bariatric surgery. to lose weight to address his numerous health issues, pt will need the addition of weight loss medication . CURRENTLY: WEIGHT 565 lb w/ BMI 79.LIFESTY LE CHANGES: for the past 11 months, he's been intensivel y working on lifestyle changes. he has cut out all fast food and makes all his own meals. he has cut down on carbohydra mary lou and increased vegetables . he does not drink soda. he is following recommenda tions from nutrition. he also takes the stairs at work rather than the elevator and walks all day, as his job involves visiting different nursing homes, walking in and out and taking stairs. on the weekend, he goes to a gym and does cardio for 30min and weights for 30min. we reviewed tirzepatid e in detail, including contraindi cations and common side effects and risks.-- black box warning: reports of suicidal thoughts. he denies depression or thoughts of self harm.-- MEN and thyroid C-cell tumor: pt reports he has no hx of cancer and no cancer history in family. no one in family with MEN or C-cell tumor that he is aware of.-- pt denies any hx of pancreatit is.-- pt denies chronic GI symptoms. no constipati on, diarrhea, nausea, vomitingwe also reviewed dosingmoun jaro (tirzepati de): initial dose 2.5mg once weekly x 4 wks, then increase to 5mg once weekly.pt has trouble making it to [place] and would prefer to see a local nutrition. i will place a referral with [facility] nutrition. pt will call us once he is three weeks into the new medicine to discuss how he is tolerating medication so that we can determine if ready to increase the following month's dose. we will also schedule 4 wk f/u. [id number] [address] [place] [address] 08/16/2024 10:00:43 08/16/2024 16:27:29 Abdominal pain [id number] R10.9 Recheck patient's lipase level- it was 222 at [facility]. Also ordered amylase level, CBC, CMP.Sheree palaciosu ed taking Wegovy. Discussed CT report with patient Pending lab results patient may be referred to ER if electrolyt es are off or amylase and lipase are elevated. Nausea and vomiting 1692 1999 R11.2 Pending lab results patient may be referred to ER if electrolyt es are off or amylase and lipase are elevated.P atient prescribed ZofranIce chip, small sips of water [id number] Carey Cervantes NP [address] [address] 08/17/2024 14:43:53 08/17/2024 15:38:23 Abdominal pain [id number] R10.9 Recheck patient's lipase level- it was 222 at [facility]. Also ordered amylase level, CBC, CMP.All lab values were normal when checked on 08/16/2024. Lipase returned back to within normal limits. Patient discontinu ed taking Wegovy. Stopped [address] report with patient Discussed with patient remain n.p.o. until starting to feel better. Can have sips of water or Electrolyt e drinks. Advance diet as tolerated Recommend patient go back to the emergency room with any worsening of symptoms. Body mass index 40+ - severely obese [id number] Z68.45 BMI 79He was seeing a nutritionmariaa sellers Portion control, healthy food options, increase exercise Patient referred to bariatric surgery consult, got down to 515 LBS, today 569 Nausea and vomiting 1693 2000 R11.2 Pending lab results patient may be referred to ER if electrolyt es are off or amylase and lipase are elevated.P atient prescribed ZofranIce chip, small sips of water [id number] Carey Cervantes NP [address] [address] 10/18/2024 13:46:40 10/18/2024 14:23:24 Pain of left wrist [id number] M25.532 Referred to Orthopedis t Reviewed urgent care note Continue wearing wrist brace Elevate left arm and apply ice. Essential hypertension [id number] I10 Well-contr olled hypertensi on on 10 mg of lisinopril . BP today 152/79Labs UTDFollow up in 3 month Educated the patient on the importance of taking medication s as instructed proper dosing as well as side effects reviewed with the patient.- Educated the patient on the importance of low salt diet less than 2 gm daily-Educ ate the patient on the importance of eating a healthy diet, with a variety of food including fruits, vegetables and protein.- Educated on the importance of routine regular exercise for 30 min a day 5 days a week- Educated the patient on the importance of monitoring blood pressures outside of the office at least twice a week if readings are persistent ly greater then 140/90 notify the office Body mass index 40+ - severely obese [id number] Z68.45 BMI 79He was seeing a nutritioni Portion control, healthy food options, increase exercise Patient referred to bariatric surgery consult, got down to 515 LBS, today 10/2024 571 LBS.Strong ly encourage patient to follow-up with bariatric surgeon in [facility]. Sleep apnea [id number] G47 .30 Patient uses CPAP every night Health Concerns Section Related Observation LastModified by Organization Detai ls LastModified Time None Recorded Concern Status LastModified by Organization Details LastModified Time None Recorded Advance Directives Directive None Recorded Payers Encounter Date Sequence Insurance Name Policy Number Policy Ricardo Covered Member ID Ricardo Member ID Guarantor Name 03/23/2024 1 [facility]) [id number] Dima M Debra [id number] Dima M Debra 04/14/2024 1 [facility]) [id number] Dima M [place] [id number] Dima M [place] 08/16/2024 1 [facility]) [id number] Dima M [place] [id number] Dima M [place] 08/17/2024 1 [facility]) [id number] Dima M [place] [id number] Dima M [place] 10/18/2024 1 [facility]) [id number] Dima M Debra [id number] Dima M Debra Notes Date Note Type Note Provider Name and Address Organization Details Recorded Time 4 text/html 33 yo man c/o feeling sick since Friday, today day 4 of sx. pt tested negative for flu and covid today in the office. Friday sore throat and tired. Today: tired, head congestion but not sinus ontiveros, like a headache but not a headache ; mild. it doesn't hurt, but it's annoying. i'm sleeping at night just fine. a little cough and wheezing, but mostly just fatigue. no runny nose or congestion. sore throat was first day but resolved. no cp, no sob, no abd pain, and no diarrhea. appetite is ok. 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 taking dayquil. his biggest complaint is that he is sleepy and fatigued, like he could fall asleep right now. he is tolerating the cpap and sleeping with it nightly. 12/04 ppd cig. PMH:morbid obesity (BMI 73.4). working with [facility]. he dropped his wt from 560 to 515 to qualify for surgery, but they recently told him he now needs to drop to 450 to qualify for gastric bypass. they've changed the parameters.HTN,cigarette s.FIDE on CPAPGERDNAFLDanxiety MAGDI VILLARREAL MD [address] [place] [address], [phone], [facility] 03/23/2024 21:35:19 4 text/html 33 yo man, ex-smoker (quit 2 yrs ago), morbid obesity with BMI>78 complicated by FIDE and chronic low back and knee pain, HTN, family hx of father w/ HI late 40s, and s/p appy. note, as part of evaluation for possible bariatric surgery, pt underwent cardiac catheterization 10/14/23 and had normal coronary arteries. reason for visit: pt was told he is too heavy for bariatric surgery. he worked on diet and physical activity, though he is limited in his exercise by his size and back and knee pain. pt lost over 45 lbs, but has not been able to keep it off and has now gained back more. pt is being seen today to discuss and start weight loss medicine. cardiac evaluation details:patient was unable to have a stress test due to super morbid obesity. EKG on 05/02/2023 showed normal sinus rhythm with left posterior fascicular block, cannot exclude anterior infarct. Echocardiogram on 05/28/2023 showed limited study, LV systolic function normal, limited visualization of valves. CTA of the coronary arteries on 09/19/2023 was a nondiagnostic study, severely limited due to body habitus. Cardiac catheterization was done on 10/14/2023 showing normal coronary arteries. meds: lisinopril 20 qd and vit D. needs labs: cbc, cmp, a1c, lipids he's been seen at bariatric surg program at [place].on diet 560 to 513, but then gained back. he says he is back where he was and possibly even higher. my body is really feeling it. just getting around work is hard - out of breath easily and back hurts. BMI now is over 78. CURRENTLY: WEIGHT 565 lb w/ BMI 79.LIFESTYLE CHANGES: for the past 11 months, he's been intensively working on lifestyle changes. he has cut out all fast food and makes all his own meals. he has cut down on carbohydrates and increased vegetables. he does not drink soda. he is following recommendations from nutrition. he also takes the stairs at work rather than the elevator and walks all day, as his job involves visiting different nursing homes, walking in and out and taking stairs. on the weekend, he goes to a gym and does cardio for 30min and weights for 30min. we reviewed tirzepatide in detail, including contraindications and common side effects and risks.-- black box warning: reports of suicidal thoughts. he denies depression or thoughts of self harm.-- MEN and thyroid C-cell tumor: pt reports he has no hx of cancer and no cancer history in family. no one in family with MEN or C-cell tumor that he is aware of.-- pt denies any hx of pancreatitis.-- pt denies chronic GI symptoms. no constipation, diarrhea, nausea, vomitingwe also reviewed dosingmounjaro (tirzepatide): initial dose 2.5mg once weekly x 4 wks, then increase to 5mg once weekly.pt has trouble making it to [place] and would prefer to see a local nutrition. i will place a referral with [facility] nutrition. 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 quit cigarettes approx 2 yrs ago. no drug use. etoh: rarely will have one beer, not more. MAGDI VILLARREAL MD [address] [place] [address], [phone], [facility] 04/29/2024 14:31:53 4 text/html Telehealth visit, permission given by patient, both parties in the state of [place]. ER follow-up, 08/10 patient went to [facility] with complaint of abdominal pain and irretractable vomiting.33yoM w/ pmh extremely elevated BMI started on Wegovy 5 weeks ago, HTN, s/p appendectomy presenting with cc abdominal pain and vomiting, transferred from [facility] in [place] for CT imaging ([facility] was identified as a hospital with a CT scan that could accommodate his BMI). Patient endorses epigastric pain since Friday night at 10 pm, located middle of chest with radiation around the sides. Pain constant since onset, worsened yesterday, and is now slightly improving. Endorses vomiting 4 times in past 24 hours, non-bloody. Does endorse several dark specs in vomit. No melena or bright red blood per rectum. No diarrhea. No fevers or chills. No chest pain or difficulties breathing. Notably started on Wegovy [address] & EKG were NL. Said possible pancreatitis or GERD. Patient is amylase lipase level was 222. He reports he has sharp stabbing abdominal pain and mid abdomen that radiates out to his full abdomen. He states he has been vomiting acid and also having acid he diarrhea since yesterday. Unable to keep anything down. He was d/c from ER with famotidine which has not been helpful. Patient states he feels awful.Patient stopped taking Wegovy the day he left the ER last week; Symptoms have still not improved. Carey Cervantes, [address] [place], [phone], [facility] 08/17/2024 13:08:25 4 text/html Patient presents in office today with complaint of abdominal pain and vomiting. Insisted on being seen in the office for evaluation.Had a telehealth visit yesterday and also had labs done. Telehealth visit from yesterday Below: ER follow-up, 08/10 patient went to [facility] with complaint of abdominal pain and irretractable vomiting.33yoM w/ pmh extremely elevated BMI started on Wegovy 5 weeks ago, HTN, s/p appendectomy presenting with cc abdominal pain and vomiting, transferred from [facility] in [place] for CT imaging ([facility] was identified as a hospital with a CT scan that could accommodate his BMI). Patient endorses epigastric pain since Friday night at 10 pm, located middle of chest with radiation around the sides. Pain constant since onset, worsened yesterday, and is now slightly improving. Endorses vomiting 4 times in past 24 hours, non-bloody. Does endorse several dark specs in vomit. No melena or bright red blood per rectum. No diarrhea. No fevers or chills. No chest pain or difficulties breathing. Notably started on Wegovy [address] & EKG were NL. Said possible pancreatitis or GERD. Patient is amylase lipase level was 222. He reports he has sharp stabbing abdominal pain and mid abdomen that radiates out to his full abdomen. He states he has been vomiting acid and also having acid he diarrhea since yesterday. Unable to keep anything down. He was d/c from ER with famotidine which has not been helpful. Patient states he feels awful.Patient stopped taking Wegovy the day he left the ER last week; Symptoms have still not improved. Labs 08/16/24:RBC 6.68, Hgb 19.5, Hct 59.5.Amylase and lipase were normal. No electrolyte imbalance. Normal kidney and liver function.Patient states he has not vomited today but still has mid abdominal pain. He took zofran this morning. He reports he forced himself to eat a piece of toast. He had a normal bowel movement this morning. He stopped taking Wegovy 2 weeks ago. Patient was seen bariatric surgery at [facility]. He was 560 and got down to 515. He was told he needed to lose another 60 pounds and then he would be able to have surgery. Patient states due to things getting in the way and his he started to gain weight again. Reports he had to follow-up with bankruptcy and also did not have money to drink shakes 3 times a day and 1 meal at dinner. He has been off his diet. Carey Cervantes, [address] [place], [phone], [facility] 08/17/2024 16:18:49 4 text/html Patient presents in office today with complaint of abdominal pain and vomiting. Insisted on being seen in the office for evaluation.Had a telehealth visit yesterday and also had labs done. Telehealth visit from yesterday Below: ER follow-up, 08/10 patient went to [facility] with complaint of abdominal pain and irretractable vomiting.33yoM w/ pmh extremely elevated BMI started on Wegovy 5 weeks ago, HTN, s/p appendectomy presenting with cc abdominal pain and vomiting, transferred from [facility] in [place] for CT imaging ([facility] was identified as a hospital with a CT scan that could accommodate his BMI). Patient endorses epigastric pain since Friday night at 10 pm, located middle of chest with radiation around the sides. Pain constant since onset, worsened yesterday, and is now slightly improving. Endorses vomiting 4 times in past 24 hours, non-bloody. Does endorse several dark specs in vomit. No melena or bright red blood per rectum. No diarrhea. No fevers or chills. No chest pain or difficulties breathing. Notably started on Wegovy [address] & EKG were NL. Said possible pancreatitis or GERD. Patient is amylase lipase level was 222. He reports he has sharp stabbing abdominal pain and mid abdomen that radiates out to his full abdomen. He states he has been vomiting acid and also having acid he diarrhea since yesterday. Unable to keep anything down. He was d/c from ER with famotidine which has not been helpful. Patient states he feels awful.Patient stopped taking Wegovy the day he left the ER last week; Symptoms have still not improved. Labs 08/16/24:RBC 6.68, Hgb 19.5, Hct 59.5.Amylase and lipase were normal. No electrolyte imbalance. Normal kidney and liver function.Patient states he has not vomited today but still has mid abdominal pain. He took zofran this morning. He reports he forced himself to eat a piece of toast. He had a normal bowel movement this morning. He stopped taking Wegovy 2 weeks ago. Patient was seen bariatric surgery at [facility]. He was 560 and got down to 515. He was told he needed to lose another 60 pounds and then he would be able to have surgery. Patient states due to things getting in the way and his life he started to gain weight again. Reports he had to file for bankruptcy and also did not have money to drink shakes 3 times a day and 1 meal at dinner. He has been off his diet.Patient states now he is financially doing better and is able to restart going to the bariatric program at [facility]. Patient reports he has not been able to move much since his fall on 09/20/2024 where he injured his left wrist and right knee. BMI 79.6, WT 571 LBS. On 09/20/2024 fell off an 8 ft porch. Patient fell and sprained his left wrist. He went to urgent care. Told to follow-up with Ortho but did not call him for appt. He has been wearing a brace on his left wrist and it has not improved. Still painful and sore. Will resend referral to Ortho. Carey Cervantes, [address] [place], [phone], [facility] 10/18/2024 14:32:23
--- NOTE | 2025-03-16 13:24 | MHC.OFFVISWM ---
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 Dinner: 5- 7pm - protein - chicken or pork or beef or 2 -3 eggs and cheese, vegetables 3-4 d/ week prepared salad with dressing. 1% milk Snacks: none Restaurant - 1 per week mostly mozambican. Other snacks: fresh fruit - afternoon, and after dinner Liquids: Stopped soda, fast foods and fried foods. NO soda, Coffee 1-2 times per week - half and half and sugar, water or fruit juice Alcohol intake: 1 beer every couple of weeks, tobacco: 3-5 cigarettes per day, marijuana: none Exercise: none. Has gym membership [facility] Medical History FIDE on CPAP HTN (hypertension) with goal to be determined Morbid obesity Surgical History Hx of appendectomy Hx of adenoidectomy Hx of tonsillectomy Social History Alcohol intake: current Alcohol intake frequency: holidays/special occasions only Patient Tobacco Use Status: Current everyday Tobacco user Cigarettes Per Day: 5 Telehealth Telehealth Telehealth Platform: Telephone Location of provider rendering services: practice address Location of patient: address on file Patient Identification confirmed using: Name, : Yes Telehealth method: voice only Patient verbally consented to treatment: Yes Patient verbally consented to billing insurance company: Yes Patient informed of any privacy concerns related to visit: Yes Minutes spent on Phone/Video with Pt.: 60 Assessment & Plan Assessment & Plan (1) Morbid obesity: Code(s): E66.01 - Morbid (severe) obesity due to excess calories Category: Medical Plan: 1. Plan for lap sleeve gastrectomy. If diaphragmatic or ventral hernias are present at time of surgery, these will be repaired laparoscopically as well. I emphasized the importance of close follow-up, adherence to instructions and good communication. The surgery does not replace the need to change your lifestlyle which is the cause of the obesity problem. The surgery provides the motivation to try again to change your lifestyle, it reduces the appetite and make the transition to a better lifestyle easier and doubles the amount of weight you would lose compared to doing the lifestyle change without the surgery. You will need to be on a liquid diet with protein shakes for 2 weeks before surgery to maximize weight loss and boost your nutritional status to recover better from surgery and also for the first two weeks after surgery to let the stomach heal before we introduce other foods. After the first 2 weeks we will introduce protein bars and soft foods like scrambled eggs, cottage cheese and yogurt and after the 6th week will introduce meat, fish and cooked vegetables in small amounts. Over time you should be able to eat everything in small amounts. Side effects like nausea, vomiting, heartburn or abdominal pain are not common in the practice unless you are not following in the practice. This operation requires lifetime commitment to following in our practice and communication with me. You will much less weight and experience side effects if you don?t communicate or not following in the practice. Complications are rare and in our practice is about 1/10 of the national average. However, you can develop bleeding that may require transfusion (hasn?t happened for year in the practice), you may from complications (we did not have any deaths in the practice) and infections. Infections are usually a result of breakdown in communication or not understanding or following directions correctly. They are difficult to treat, they can happen during the first 6 weeks, they may require to be in the hospital for weeks or even months, not being able to eat by mouth and you may have drains and surgeries to try and correct the issue. Other risks and complications include possible conversion to an open procedure, leaks, small bowel obstruction, blood clots, cardiac, or pulmonary complications, as longterm complications such as ulcers, insufficient weight loss and vitamin deficiencies. 2. You will receive a link of our software camron to generate an individualized nutritional and exercise plan specific for you. Please send me a screenshot of the plans you will generate Meal to include lean meat (beef, fish, pork, turkey, chicken), or guatemalan yogurt, or egg whites, or beans with a salad with olive oil and fruits (berries, pears, apples, kiwi). Avoid salt, breads, potatoes, rice, pasta, desserts. 3. If you choose shakes, each shake would be drunk slowly, like coffee in a period of 2 hours. 4. If you choose bars, cut each bar in 4 pieces and eat each piece in 30m in to make each bar last 2 hours. 5. I emphasized the importance of measuring accurately the food portion and measure it when serving the food in plate 6. The meal portions include a specific number of forks of meat and salad. You always eat the meat portion but you can replace up to half of salad/vegetables portion with rice, potatoes or pasta, or a fruit if you like. The less you do it the better weight loss will be. 7. One full-size fork is what it can be scooped on the fork without falling aside and not what can be bit with the fork. Use regular forks like those you find in a typical restaurant. 8. Please buy the body composition scale that can withstand your weight, as we discussed, and send me weight measurements as soon as possible and then once a week. Always include your diet and exercise plan. 9. The best choice would be to purchase a stationary bike, elliptical or treadmill at home that can track calories and can withstand your weight. Let me know if you do so I can give you an exercise plan. 10. Goal is to lose at least 1.5-2lbs per week 11. Goal to lose 20% of your weight before surgery, which is about 100lbs. Ultimate weight goal: 450lbs before surgery 12. Please follow the diet plan exactly without any change. If you don't like something about the plan or you feel hungry you need to communicate with me so I can help you revise the plan. You should not change the plan yourself. 13. You will be scheduled for EGD to assess the stomach's anatomy after you make some weight loss progress.The possibility of biopsies was discussed. Patient needs to avoid use of NSAIDs and aspirin for 1 week prior to EGD. You must be on liquids only the day before your endoscopy. Risks of perforation and bleeding was discussed with the patient. This will be an outpatient procedure with IV sedation. 14. I ordered a medication to help you with the weight loss which is called Zepbound. My office will try to authorize it. Please let me know when you receive it so I can give you a meal and exercise plan. Common side effects include nausea, vomiting, constipation, diarrhea, abdominal pain. Please let me know if you develop any of these symptoms. The patient qualifies for this medication as he as participated through his PCP in a [facility] program since 07/2024 engaging in a lifestyle program and Wegovy (wich was approved by [facility]) during which he lost approximately 3 months. However, he developed persistent diarrhea and GERD and the Wegovy had to be discontinued. Orders: Referrals Behavioral Health Referral E66.01 - Morbid (severe) obesity due to excess calories
[2025-03-16 13:57] VITALS: BMI 77.2
== END 2025-03-16 14:11 | disposition home or self-care (01) ==
LOC: HO.HBS 09:35
PROVIDERS: PCP Nurse Practitioner Adult Health; Visit Provider Surgery
DX: E66.813 Obesity, class 3 (principal); Z68.45 Body mass index [BMI] 70 or greater, adult
CPT/HCPCS: 98015

== ENCOUNTER 2025-03-28 15:29 | Outpatient (AMB) | payer OTHER, SELFPAY ==
--- NOTE | 2025-03-28 14:35 | MHC.WMTHER ---
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 Intake [facility] Medical History FIDE on CPAP HTN (hypertension) with goal to be determined Morbid obesity Surgical History Hx of appendectomy Hx of adenoidectomy Hx of tonsillectomy Social History Alcohol intake: current Alcohol intake frequency: holidays/special occasions only Patient Tobacco Use Status: Current everyday Tobacco user Cigarettes Per Day: 5 Behavioral Health Assessment Weight Management Therapy Therapy Notes Details PT is a 34 years old male, who presents for a visit to complete BH assessment as part of surgical weight loss program. Presenting Concerns Referral Source WMP-Provider. Reason for referral Completion of behavioral health assessment as part of process for weight-loss surgery. Precipitating Event Obesity. Living Situation Current Living Situation Own At risk of losing current housing? No Satisfied with current living situation? Yes Comments PT lives alone with his 2 cats. Food/Weight/Diet Expectations of change The initial goal to lose 20% of your weight before surgery, which is about 100 lbs. Ultimate weight goal: 450 lbs before surgery. PT started the program 03/16/25 at 553 Lbs using the scale from the hospital, most recent weight 03/24/25 he was 558 Lbs using his scale. PT is implementing the following: Current meal plan: Using iMove site. combination of protein shakes, bars and 1 meal at day 24F/24F Exercise plan: burning 250 calories per day. He has a stationary bike at home. Scale: not due to weight limits. Communication with provider: Yes, on . History/Relationship with food Example of meals before starting the program: Breakfast: Lunch: Dinner: Snacks: Drinks/Liquids: History/Relationship with weight In the last 10 years, the patient's Lowest weight was and highest Social History Family history and relationship PT is single, never , and doesn't have any children. PT was adopted at age 4. PT has his mom (adopted) and step-dad, who are in [place], and they are close, and see each other 2x week. HE also has a close friend with whom he plays bowling. Adoptive parents when he was a child and remarried. He has step-sisters from his adoptive parents. He meet 2 bio-siblings recently and is in touch with bio-father, he also has 1 bio-siblings he doesn't know, he also has another half-sibling he doesn't know. 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 Developmental history and status None reported. Currently WNL. Social support Uncle, mother, step-dad, 2 of his best friends. Community support PCP Latter Day/Spirituality None. Cultural/Ethnic information . Legal Involvement and History Current or historical involvement with the legal system? None. Education Highest grade completed Some college. Preferred learning style Learn by doing and Visual Currently enrolled in educational program? No Interested in further educational program? No Educational Interests/Skills Bowling. 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 ) Wants help to find employment? No Meaningful activities Bowling. Watch movies. Financial Situation Describe current financial situation Comfortable Financial assistance? None Service Service? No Mental Health and Addiction Treatment Current/Past substance abuse? No Comments Alcohol: 1 or less at month. Has no more than 3 drinks. Cigarettes/Tobacco: yes. About 10 at day. Cannabis/Edibles: None. Current/Past addictive behavior concerns? No Psychiatric history PT report he has never been in counseling before. Denies ever been inpatient or in crisis. Also denies any safety concerns around self-harm/other harm. Medical and Physical Health Summary Additional Medical History not covered in history None. Sexual History concerns None reported Physical exam in the last year? Yes Pain Screening Current pain? Yes Pain in the last few months? Yes Comments back pain after back injury. Medications Is the patient compliant with medications? Not applicable Does the patient have Schneider Guardian in place? Not applicable Does the patient use complimentary health approaches? No Questionnaires PHQ-9 Over the last 2 weeks, how often have you been bothered by any of the following problems? 1. Little interest or pleasure in doing things: not at all 2. Feeling down, depressed, or hopeless: not at all 3. Trouble falling or staying asleep, or sleeping too much: not at all 4. Feeling tired or having little energy: more than half the days 5. Poor appetite or overeating: nearly every day 6. Feeling bad about yourself - or that you are a failure or have let yourself or your family down: several days 7. Trouble concentrating on things, such as reading the newspaper or watching television: not at all 8. Moving or speaking so slowly that other people could have noticed. Or the opposite - being so fidgety or restless that you have been moving around a lot more than usual: not at all 9. Thoughts that you would be better off or of hurting yourself in some way: not at all Total score: 6 Depression Screening Interpretation: Positive (From new PT pack. ) Depression Screening Done: Yes Source: Developed by Drs. Syd Branch, Sabrina Lackey, Luan Rivas and colleagues, with an educational fide from [employer]. Binge Eating Scale Group 1 A. I don't feel self-conscious about my wt. or body size when I'm with others. B. I feel concerned about how I look to others, but it normally does not make me fell disappointed with myself C. I do get self-conscious about my appearance and wt. which makes me feel disappointed in myself. D. I feel very self-conscious about my wt. and frequently I feel intense shame and disgust for myself. I try to avoid social contacts because of my self-consciousness. Response Group 1: C Group 2 A. I don't have any difficulty eating slowly in the proper manner. B. Although I seem to gobble down foods, I don't end up feeling stuffed because of eating to much. C. At times, I tend to eat quickly and then, I feel uncomfortably full afterwards. D. I have the habit of bolting down my food, without really chewing it. When this happens I usually feel uncomfortably stuffed because I've eaten to much. Response Group 2: B Group 3 A. I feel capable to control my eating urges when I want to. B. I feel like I have failed to control my eating more than the average person. C. I feel utterly helpless when it comes to feeling in control of my eating urges. D. Because I feel so helpless about controlling my eating I have become very desperate about trying to get control. Response Group 3: D Group 4 A. I don't have the habit of eating when I'm bored. B. I sometimes eat when I'm bored, but often I'm able to get busy and get my mind off food. C. I have a regular habit of eating when I'm bored, but occasionally, I can use some other activity to get my mind off eating. D. I have a strong habit of eating when I'm bored. Nothing seems to help me breath the habit. Response Group 4: B Group 5 A. I'm usually physically hungry when I eat something. B. Occasionally, I eat something on impulse even though I really am not hungry. C. I have the regular habit of eating foods, that I might not really enjoy, to satisfy a hungry feeling even though physically, I don't need the food. D. Although I'm not physically hungry, I get a hungry feeling in my mouth that only seems to be satisfied when I eat a food, like sandwich, that fills my mouth. Sometimes, when I eat the food to satisfy my mouth hunger, I then spit the food out so I won't gain weight. Response Group 5: A Group 6 A. I don't feel any guilt or self-hate after I overeat. B. After I overeat, occasionally I feel guilt or self-hate. C. Almost all the time I experience strong guilt or self-hate after I overeat. Response Group 6: A Group 7 A. I don't lose total control of my eating when dieting even after periods when I overeat. B. Sometimes when I eat a forbidden food on a diet, I feel like I blew it and eat even more. C. Frequently, I have the habit of saying to myself, I've blown it now, why not go all the way, when I overeat on a diet. When that happens I eat more. D. I have a regular habit of starting a strict diets for myself but I break the diets by going on an eating binge. My life seems to be either a feast or famine. Response Group 7: B Group 8 A. I rarely eat so much food that I feel uncomfortably stuffed afterwards. B. Usually about once a month, I each such a quantity of food, I end up feeling very stuffed. C. I have regular periods during the month when I eat large amounts of food, either at mealtime or at snacks. D. I eat so much food that I regularly feel quite uncomfortable after eating and sometimes a bit nauseous. Response Group 8: C Group 9 A. My level of calorie intake does not go up very high or go down very low on a regular basis. B. Sometimes after I overeat, I will try to reduce my caloric intake to almost nothing to compensate for the excess calories I've eaten. C. I have a regular habit of overeating during the night. It seems that my routine is not to be hungry in the morning but overeat in the evening. D. In my adult years, I have had week-long periods where I practically starve myself. This follows periods when I overeat. It seems I live a life of either feast or famine. Response Group 9: C Group 10 A. I usually am able to stop eating when I want to. I know when enough is enough. B. Every so often, I experience a compulsion to eat which I can't seem to control. C. Frequently, I experience strong urges to eat which I seem unable to control, but at other times I can control my eating urges. D. I feel incapable of controlling urges to eat. I have a fear of not being able to stop eating voluntarily. Response Group 10: B Group 11 A. I don't have any problem stopping eating when I feel full. B. I usually can stop eating when I feel full but occasionally overeat leaving me feeling uncomfortably stuffed. C. I have a problem stopping eating once I start and usually I feel uncomfortably stuffed after I eat a meal. D. Because I have a problem not being able to stop eating when I want, I sometimes have to induce vomiting to relieve my stuffed feeling. Response Group 11: B Group 12 A. I seem to eat just as much when I'm with others, Family social gatherings as when I'm by myself. B. Sometimes, when I'm with other persons, I don't eat as much as I want to eat because I'm self-conscious about my eating. C. Frequently, I eat only a small amount of food when others are present, because I'm very embarrassed about my eating. D. I feel so ashamed about overeating that I pick times to overeat when I know no one will see me. I feel like a closet eater. Response Group 12: B Group 13 A. I eat three meals a day with only an occasional between meal snack. B. I eat 3 meals a day, but I also normally snack between meals. C. When I am snacking heavily, I get in the habit of skipping regular meals. D. There are regular periods when I seem to be continually eating, with no planned meals. Response Group 13: C Group 14 A. I don't think much about trying to control unwanted eating urges. B. At least some of the time, I feel my thoughts are pre-occupied with trying to control my eating urges. C. I feel that frequently I spend much time thinking about how much I ate or about trying not to eat anymore. D. It seems to me that most of my waking hours are pre-occupied by thoughts about eating or not eating. I feel like I'm constantly struggling not to eat. Response Group 14: A Group 15 A. I don't think about food a great deal. B. I have strong craving for food but they last only for brief periods of time. C. I have days when I can't seem to think about anything else but food. D. Most of my days seem to be pre-occupied with thoughts about food. I feel like I live to eat. Response Group 15: B Group 16 A. I usually know whether or not I'm physically hungry. I take the right portion of food to satisfy me. B. Occasionally, I feel uncertain about knowing whether or not I'm physically hungry. A these times it's hard to know how much food I should take to satisfy me. C. Even though I might know how many calories I should eat, I don't have any idea what is a normal amount of food for me. Response Group 16: C Binge Eating Score: 20 Score less than 17 Minimal Risk Score between 18-26 Moderate Risk Score between 27-46 High Risk Assessment & Plan Assessment & Plan (1) Eating disorder, unspecified: Code(s): F50.9 - Eating disorder, unspecified (2) Pre-bariatric surgery psychological evaluation: Code(s): Z71.89 - Other specified counseling Plan PT not cleared today he will return for a second visit to continue assessment. Next camron: 04/11/25 at 10am, Telehealth. Telehealth [facility]health [facility] Location of [facility]: other Location of patient: address on file Patient Identification confirmed using: Name, : Yes Telehealth method: voice only Patient verbally consented to treatment: Yes Patient verbally consented to billing insurance company: Yes Patient informed of any privacy concerns related to visit: Yes Minutes spent on Phone/Video with Pt.: 50 Coding Level of Care Code New Pt Tele Psy Diag Brina ([id number]) Patient Type New Diagnoses Eating disorder, unspecified F50.9 Pre-bariatric surgery psychological evaluation Z71.89 Time Spent (min) 50
--- OUTSIDE RECORDS SUMMARY | 2025-03-28 18:16 | XMS_ITS | Data Portability ---
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 The patient agreed to the telehealth appointment and confirmed they were in a safe and private space to perform the visit. Location of the visit was home in the [facility]. The visit was done over phone. Duration of the visit was _12:33___min. In addition to the patient, no one else participated. lamin Not available 04/14/2024 13:19:35 Plan of Treatment Reminders Order Date Submit Date Provider Last Modified By Organization Details Last Modified Time Details Appointments None recorded. Lab CBC w/ diff [email or web address] [place] [address] - [facility], [address] [place] [address], [address], 4 13:01:27 CMP, serum or plasma 2023 024 [facility], [address] [place] [address], [address], 4 01:36:12 amylase, serum or plasma 2023 024 [facility], [address] [place] [address], [address], 4 01:36:13 lipase, serum or plasma 2023 024 [facility], [address] [place] [address], [address], 4 01:36:14 CBC w/ diff [address], [address] [place] [address], [address], 4 14:06:56 CMP, serum or plasma [address], [address] [place] [address], [address], 4 15:35:10 HbA1c (hemoglob in A1c), blood [address], [address] [place] [address], [address], 4 14:06:56 lipid panel, serum [address], [address] [place] [address], [address], 4 15:35:10 rapid flu (A+B) 2023 024 SANDRA In-Office Order, Internal Use Only DO Not Attach Compendium DO Not Attach Compendium, Do Not Delete/merge, [id number] 08:26:28 SARS CoV 2 RNA, QL, NATHANIEL+probe , respirato ry specimen 2023 024 SANDRA In-Office Order, Internal Use Only DO Not Attach Compendium DO Not Attach Compendium, Do Not Delete/merge, [id number] 08:27:12 Referral orthopedi c surgeon referral 2023 024 [facility], [address] [place], [address], 5 13:26:43 nutrition ist/rima marin referral - referral to [facility] nutrition : pt is strugglin g w/ BMI > 78 with FIDE, LBP, b/l knee pain, LEON. he was told at [facility] he is too heavy to proceed w/ surgery. pt is about to embark on GLP1/GIP therapy if insurance will cover. pt would like dietary help from nutrition ist. thank you 2023 024 [email or web address] [facility], [address] [facility], [facility], [place], [address], 4 13:16:27 Procedures None recorded. Surgeries None recorded. Imaging None recorded. Medication Orders ondansetr on 8 mg disintegr ating tablet 2023 024 [id number], [address] [place], [address], 4 10:08:17 Mounjaro 2.5 mg/0.5 mL subcutane ous pen injector 2023 024 [email or web address] [facility], [address] [place] [address], [address], 4 15:06:11 Patient TargetsNo targets recorded. 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 he was told at [facility] he is too heavy to proceed w/ surgery. pt is about to embark on GLP1/GIP therapy if insurance will cover. pt would like dietary help from informatics developer. thank you Referring Physician: Magdi Villarreal, Internal [...] DO Not Attach Compendium, Do Not Delete/merge, [id number] 03/23/2024 21:28:36 03/24/20 24 03/24/2024 SARS CoV 2 RNA, QL, NATHANIEL+p robe, respi rator y speci men Unknown Analyte neg Not Available In-Off ice Order Internal Use Only DO Not Attach Compendium DO Not Attach Compendium, Do Not Delete/merge, [id number] 03/23/2024 21:28:36 03/24/20 24 03/24/2024 rapid flu (A+B) Flu negati ve Not Available In-Office Order Internal Use Only DO Not Attach Compendium DO Not Attach Compendium, Do Not Delete/merge, [id number] 03/23/2024 21:28:26 08/16/20 24 08/17/2024 COMPR EHENS RELL METAB OLIC PANEL glucose 111 mg/dL 65-99 high Fasti ng refer ence inter jazmín For someo ne witho ut known diabe mary lou, a gluco se value betwe en 100 and 125 mg/dL is consi stent with predi abete s and shoul d be confi rmed with a follo w-up test. Not Available [facility] [place] [facility] [address] [place], [address], 08/17/2024 01:36:09 08/16/20 24 08/17/2024 COMPR EHENS RELL METAB OLIC PANEL urea nitrogen (BUN) 17 mg/dL 7-25 normal Not Available [employer] [facility] [place] [facility] [address], [place], [address], 08/17/2024 01:36:09 08/16/20 24 08/17/2024 COMPR EHENS RELL METAB OLIC PANEL creatinine 0.88 mg/dL 0.60-1 .[address] [facility] [address], [place], [address], 08/17/2024 01:36:09 08/16/20 24 08/17/2024 COMPR EHENS RELL METAB OLIC PANEL eGFR 118 mL/mi n/1.7 3m2 > or = [address] [facility] [address], [place], [address], 08/17/2024 01:36:09 08/16/20 24 08/17/2024 COMPR EHENS RELL METAB OLIC PANEL BUN/creatini ne ratio SEE NOTE: (calc ) 6-22 Not Repor norma: BUN and Creat inine are withi n refer ence range . Not Available [facility] [address], [place], [address], 08/17/2024 01:36:09 08/16/20 24 08/17/2024 COMPR EHENS RELL METAB OLIC PANEL sodium 136 mmol/ L 135-14 [address] [facility] [address], [place], [address], 08/17/2024 01:36:09 08/16/20 24 08/17/2024 COMPR EHENS RELL METAB OLIC PANEL potassium 4.8 mmol/ L 3.5-5. [address] [facility] [address], [place], [address], 08/17/2024 01:36:09 08/16/20 24 08/17/2024 COMPR EHENS RELL METAB OLIC PANEL chloride 103 mmol/ L 98-[address] [facility] [address], [place], [address], 08/17/2024 01:36:09 08/16/20 24 08/17/2024 COMPR EHENS RELL METAB OLIC PANEL carbon dioxide 24 mmol/ L 20-[address] [facility] [address], [place], [address], 08/17/2024 01:36:09 08/16/20 24 08/17/2024 COMPR EHENS RELL METAB OLIC PANEL calcium 9.2 mg/dL 8.6-10 .[address] [facility] [address], [place], [address], 08/17/2024 01:36:09 08/16/20 24 08/17/2024 COMPR EHENS RELL METAB OLIC PANEL protein, total 6.6 g/dL 6.1-8. [address] [facility] [address], [place], [address], 08/17/2024 01:36:09 08/16/20 24 08/17/2024 COMPR EHENS RELL METAB OLIC PANEL albumin 4.0 g/dL 3.6-5. [address] [facility] [address], [place], [address], 08/17/2024 01:36:09 08/16/20 24 08/17/2024 COMPR EHENS RELL METAB OLIC PANEL globulin 2.6 g/dL_ (calc ) 1.9-3. [address] [facility] [address], [place], [address], 08/17/2024 01:36:09 08/16/20 24 08/17/2024 COMPR EHENS RELL METAB OLIC PANEL albumin/glob ulin ratio 1.5 (calc ) 1.0-2. 5 normal Not Available [facility] [place] [facility] [address], [place], [address], 08/17/2024 01:36:09 08/16/20 24 08/17/2024 COMPR EHENS RELL METAB OLIC PANEL bilirubin, total 0.9 mg/dL 0.2-1. [address] [facility] [address], [place], [address], 08/17/2024 01:36:09 08/16/20 24 08/17/2024 COMPR EHENS RELL METAB OLIC PANEL alkaline phosphatase 51 U/L 36-130 normal Not Available [facility] [address], [place], [address], 08/17/2024 01:36:09 08/16/20 24 08/17/2024 COMPR EHENS RELL METAB OLIC PANEL AST 20 U/L 10-[address] [facility] [address], [place], [address], 08/17/2024 01:36:09 08/16/20 24 08/17/2024 COMPR EHENS RELL METAB OLIC PANEL ALT 37 U/L 9-[address] [facility] [address], [place], [address], 08/17/2024 01:36:09 08/16/20 24 08/17/2024 CBC (INCL UDES DIFF/ PLT) white blood cell count 10.2 thous and/u L 3.8-10 .[address] [facility] [address], [place], [address], 08/17/2024 01:36:13 08/16/20 24 08/17/2024 CBC (INCL UDES DIFF/ PLT) red blood cell count 6.68 lb on/uL 4.20-5 .80 high Not Available [facility] [place] [facility] [address], [place], [address], 08/17/2024 01:36:13 08/16/20 24 08/17/2024 CBC (INCL UDES DIFF/ PLT) hemoglobin 19.5 g/dL 13.2-1 7.1 high Verif ied by repea t fide sis. Not Available [facility] [place] [facility] [address], [place], [address], 08/17/2024 01:36:13 08/16/2008/17/2024 CBC (INCL UDES DIFF/ PLT) hematocrit 59.5 % 38.5-5 0.0 high Verif ied by repea t fide sis. Not Available [facility] [place] [facility] [address], [place], [address], 08/17/2024 01:36:13 08/16/20 24 08/17/2024 CBC (INCL UDES DIFF/ PLT) MCV 89.1 fL 80.0-1 00.0 normal Not Available [facility] [place] [facility] [address], [place], [address], 08/17/2024 01:36:13 08/16/2008/17/2024 CBC (INCL UDES DIFF/ PLT) MCH 29.2 pg 27.0-3 3.0 normal Not Available [facility] [place] [facility] [address], [place], [address], 08/17/2024 01:36:13 08/16/2008/17/2024 CBC (INCL UDES DIFF/ PLT) MCHC 32.8 g/dL 32.0-3 6.0 normal Not Available [facility] [place] [facility] [address], [place], [address], 08/17/2024 01:36:13 08/16/20 24 08/17/2024 CBC (INCL UDES DIFF/ PLT) RDW 14.4 % 11.0-1 5.0 normal Not Available [facility] [place] [facility] [address], [place], [address], 08/17/2024 01:36:13 08/16/20 24 08/17/2024 CBC (INCL UDES DIFF/ PLT) platelet count 287 thous and/u L 140-40 0 normal Not Available [facility] [place] [facility] [address], [place], [address], 08/17/2024 01:36:13 08/16/2008/17/2024 CBC (INCL UDES DIFF/ PLT) MPV 12.2 fL 7.5-12 .5 normal Not Available [facility] [place] [facility] [address], [place], [address], 08/17/2024 01:36:13 08/16/20 24 08/17/2024 CBC (INCL UDES DIFF/ PLT) absolute neutrophils 6905 cells /uL 1500-7 800 normal Not Available [facility] [place] [facility] [address], [place], [address], 08/17/2024 01:36:13 08/16/20 24 08/17/2024 CBC (INCL UDES DIFF/ PLT) absolute lymphocytes 2060 cells /uL 850-39 00 normal Not Available [facility] [place] [facility] [address], [place], [address], 08/17/2024 01:36:13 08/16/2008/17/2024 CBC (INCL UDES DIFF/ PLT) absolute monocytes 969 cells /uL 200-95 0 high Not Available [facility] [address], [place], [address], 08/17/2024 01:36:13 08/16/20 24 08/17/2024 CBC (INCL UDES DIFF/ PLT) absolute eosinophils 245 cells /uL 15-500 normal Not Available [facility] [place] [facility] [address], [place], [address], 08/17/2024 01:36:13 08/16/20 24 08/17/2024 CBC (INCL UDES DIFF/ PLT) absolute basophils 20 cells /uL 0-200 normal Not Available [facility] [place] [facility] [address], [place], [address], 08/17/2024 01:36:13 08/16/20 24 08/17/2024 CBC (INCL UDES DIFF/ PLT) neutrophils 67.7 % normal Not Available [facility] [place] [facility] [address], [place], [address], 08/17/2024 01:36:13 08/16/20 24 08/17/2024 CBC (INCL UDES DIFF/ PLT) lymphocytes 20.2 % normal Not Available [facility] [place] [facility] [address], [place], [address], 08/17/2024 01:36:13 08/16/20 24 08/17/2024 CBC (INCL UDES DIFF/ PLT) monocytes 9.5 % normal Not Available [facility] [place] [facility] [address], [place], [address], 08/17/2024 01:36:13 08/16/20 24 08/17/2024 CBC (INCL UDES DIFF/ PLT) eosinophils 2.4 % normal Not Available [facility] [place] [facility] [address], [place], [address], 08/17/2024 01:36:13 08/16/20 24 08/17/2024 CBC (INCL UDES DIFF/ PLT) basophils 0.2 % normal Not Available [facility] [place] [facility] [address] [place], [place], [address], 08/17/2024 01:36:13 08/16/20 24 08/17/2024 AMYLA SE amylase 28 U/L 21-101 normal Not Available [facility] [place] [facility] [address], [place], [address], 08/17/2024 01:36:13 08/16/20 24 08/17/2024 LIPAS E lipase 9 U/L 7-60 normal Not Available [facility] [place] [facility] [address], [place], [address], 08/17/2024 01:36:14 Result Notes None recorded. Problems Name Problem SNOMED Code Status Onset Date Resolution Date Notes Provider Name and Address Organization Details Recorded Time Morbid obesity 178417834 Active Not Available [facility] 3 20:58:36 Sleep apnea 38769860 Active 07/2022 Moderate , CPAP Not Available [facility] 3 20:58:37 Obesity 371207814 Active Not Available [facility] 3 20:58:36 Benign essentia l hyperten everardo 8945841 Completed 10/09/2018 Apollo Madrigal MD [address] [place] [address], [phone], [facility] 8 11:26:50 Asthma 038287629 Completed 05/03/2014 Moisés hu DO [address] [place] [address], [phone], [facility] 4 14:22:19 Vitamin D deficien cy 03068738 Active Not Available [facility] 3 20:58:36 Tobacco dependen ce syndrome 13763790 Active Not Available [facility] 3 20:58:37 Low back pain 589713095 Active 2017 Not Available [facility] 3 20:58:36 White blood cell disorder 62286302 Active 2017 Not Available [facility] 3 20:58:36 Abnormal liver function 73488592 Active 2017 steatohe patitis by ultrasou nd Not Available [facility] 3 20:58:37 Abdomina l pain 58321926 Active 2017 Not Available [facility] 3 20:58:36 Essentia l hyperten everardo 07943696 Active 2021 Not Available [facility] 3 20:58:37 Body mass index 40+ - severely obese 220371800 Active 2021 Not Available [facility] 3 20:58:36 Epididym itis 63200349 Active 2021 Not Available [facility] 3 20:58:36 Chest pain 78738069 Active 2022 Carey Cervantes NP [address] [place] [address], [phone], [facility] [employer] [facility] 3 15:54:47 Anxiety 78402858 Active 2022 Carey Cervantes NP [address] [place] [address], [phone], [facility] [employer] [facility] 3 15:54:49 Notes:Some problems listed i n Documents: #[id number], #[id number] could not be added to this patient's chart. Please review these documents and add these problems to the patient's chart manually as needed. Problem Notes None recorded. Procedures Surgical History Date Name Laterality Status Provider Name and Address Organization Details Recorded Time 023 cardiac catheterization completed Carey Cervantes NP [address] [place] [address], [phone], [facility] [employer] [facility] 04/04/2024 19:41:13 014 Smoking Cessation 3 to 10 min completed Moisés Lam DO [address] [place] [address], [phone], [facility] [employer] [facility] 05/03/2014 14:41:29 Tonsillectomy/[place] oids completed Moisés Lam DO [address] [place] [address], [phone], [facility] [employer] [facility] 05/03/2014 14:13:54 Imaging Results None recorded. Procedure [...] Available Not Available Not Available [employer] Quad 6397-1064 (PF) 60 mcg (15 mcg x 4)/0.5 [...] 194 mm[Hg] 77 mm[Hg] Santa Peoples CMA [facility] [employer] [facility] 14:17:48 Date Recorded Systolic blood pressure Diastolic blood pressure Provider Name and Address Organization Details Last Updated DateTime 03/23/2024 132 mm[Hg] 84 mm[Hg] MAGDI VILLARREAL MD [address] [place] [address], [phone], [place] - [employer] [facility] 03/23/2024 15:00:59 Date Recorded Body height Body mass index (BMI) Body weight Respiratory rate Body temperature Heart rate Oxygen saturation Oxygen saturation in Arterial blood by Pulse oximetry Systolic blood pressure Diastolic blood pressure Provider Name and Address Organization Details Last Updated DateTime 4 180.34 cm 79.4 kg/m2 538269. 76 g 16 /min 99.1 [degF] 105 /min 97 % 97 % 127 mm[Hg] 86 mm[Hg] Caitlin Guillory [facility] [employer] [facility] 15:10:01 Date Recorded Body height Body mass index (BMI) Body weight Oxygen saturation Oxygen saturation in Arterial blood by Pulse oximetry Heart rate Body temperature Provider Name and Address Organization Details Last Updated DateTime 180.34 cm 79.6 kg/m2 317541. 24 g 96 % 96 % 91 /min 98 [degF] Liya Moulton, [employer] [address] [place], [address], [place] - [employer] [facility] 13:59:31 Date Recorded Systolic blood pressure Diastolic blood pressure Provider Name and Address Organization Details Last Updated DateTime 10/18/2024 138 mm[Hg] 86 mm[Hg] Carey Cervantes, N P [address] [place], [address], [place] - [facility] [employer] [facility] 10/18/2024 14:21:11 Social History Question Answer Notes LastModified by Organizat ion Details LastModified Time Tobacco Smoking Status Current Every Day Smoker Constance burr, [place] - [employer] [facility] 12/25/2012 14:06:49 What Is Your Level Of [...] Yes silvana Information not available 07/11/2023 Language Swedish Information no t available 07/07/2018 Country Of [...] Notes:Updated 07/07/18 SR Medical History Condition Response Asthma, COPD, Breathing or Lung Disorder Y Gout N Anxiety/Depression N Cardiac History, Heart Murmur, MT N Eye or Vision Problems N Gynecologic problems N Hernia N Thyroid Problems N GI Problems N Developmental or Behavioral Disorders N Blood Pressure High or Low N Skin Problems N Breast Problem N Food or Environmental Allergies N Diabetes N Bladder,Kidney Problems or Recurrent UTI 's N Muscle, Joint, or Bone Problems N Bleeding Disorder N Arthritis N Cancer (of any kind) N Defects or Inherited Diseases N Prostate issues, ED or Sexual Problem N Insomnia N Cholesterol High or Low N Chronic Pain N Stroke N Headache N Dizziness or Fainting N Anemia, Blood Clot, or Bleeding Disorder N Seizures or Convulsions N Ear Nose & Throat (ENT) Problems N Neuropathy N Osteoporosis N Liver Disease or Hepatitis N Immunizations Vaccine Type Date Status Note Provider Nam e and Address Organization Details Recorded Time Influenza, split virus, trivalent, preservative 3 completed Not Available [facility] 12/18/2019 02:38:28 Influenza, MDCK, quadrivalent, preservative 1 completed Apollo Madrigal MD [address] [place] [address], [phone], [facility] [employer] [facility] 11/02/2021 16:54:52 Hep B, unspecified formulation 3 completed Not Available [facility] 03/06/2023 20:58:37 Hep B, unspecified formulation 3 completed Not Available [facility] 03/06/2023 20:58:37 Hep B, unspecified formulation 4 completed Not Available [facility] 03/06/2023 20:58:37 Tdap 1 completed Not Available [facility] 03/06/2023 20:58:37 MMR 4 completed Not Available [facility] 03/06/2023 20:58:37 MMR 3 completed Not Available [facility] 03/06/2023 20:58:37 Past Encounters Encounter ID Performer Location Encounter Start Date Encounter Closed Date Diagnosis/Indication Diagnosis SNOMED-CT Code Diagnosis ICD10 Code Diagnosis Note [id number] Constance Kelley [address] [place] [address] 12/25/2012 13:50:23 12/25/2012 14:58:45 [id number] Kit Cullen MD [address] [place] [address] 01/18/2013 13:36:30 01/18/2013 15:52:02 [id number] Rose Marie Shubham [address] [place] [address] 02/18/2013 12:29:45 02/18/2013 13:25:09 [id number] Kit Cullen MD [address] [place] [address] 02/19/2013 13:41:10 02/19/2013 16:03:[id number] [place] [address] 05/03/2014 13:41:41 05/03/2014 16:30:55 Morbid obesity 916174984 Patient is 427 lbs with BMI of [...] progress on his own. Increased blood pressure 12885732 Patient has had 2 reading of elevated [...] weight loss support. Tobacco de pendence syndrome 99503609 Patient has been smoking since age 21, [...] htn, heart disease, lung disease, and cancer. [id number] Payal Hartley MD [address] [place] [address] 06/30/2014 14:40:45 06/30/2014 15:41:47 Acute pharyngitis [id number] Payal Hartley MD [address] [place] [address] 11/04/2016 08:23:26 11/04/2016 09:25:24 Morbid obesity 874410249 E66.01 Patient is 476 lbs with BMI [...] recheck fasting sugars. Tobacco de pendence syndrome 57407543 F17.290 Patient is has been smoking since [...] with smoking cessation on the future visits [id number] Pal Reyes MD [address] [address] 10/30/2017 14:46:17 10/30/2017 16:09:46 Postoperative visit 818229647 Z09 post operative visit after appendecto my, no complicati on.Recomme ded to follow up with surgeon on scheduled appointmen t on 11/12. Morbid obesity 683009017 E66.01 morbid obesity with BMI of 67.9. His TSH and Hba1c on normal range. BP is borderline high. on today visit 140/86. recommende d to keep a diary of his BP at home checking 3 times a week and call office if he notice high BP readings.R ecommended to continue with physical activity and bariatric nutritions . Tobacco de pendence syndrome 54572746 F17.200 quit smoking 5 days ago ,currently on nicotine patch 14mg.. no nicotine craving. Smoking cessation discussed. Will prescripe the gayathri of 7 mg when he finish the 14 mg patch also the nicotine gums as needed. He refuses any oral agent to help with smoking cessation. [id number] Payal Hartley MD [address] [place] [address] 01/01/2018 15:12:05 01/01/2018 16:06:25 Morbid obesity 299198179 E66.01 morbid obesity with BMI of 69.9. [...] and to bariatric surgery. Low back pain 100584078 M54.5 Low back pain for the last [...] months will obtain a lumbar spine Xray. [id number] Apollo Madrigal MD [address] [place] [address] 05/06/2018 15:33:23 05/06/2018 16:09:21 Low back pain 971575958 M54.5 back pain x 08/2017, after lifting [...] and instructio ns Adult heal th examination 571677371 Z00.00 update lab work and follow-up for CPE Tobacco user 377077161 Z 72.0 initiate nicotine patch, counseled patient in detail including using patch and tobacco, currently Body mass index 40+ - severely obese 452929919 Z68.44 we'll rediscusse d diet etc. at a follow-up visit [id number] Apollo Madrigal MD [address] [place] [address] 05/27/2018 14:41:58 05/27/2018 15:25:06 Increased blood pressure 15852322 R03.0 discussed NSA diet, exercise patient tolerated, and weight control Low back pain 859965885 M54.5 back pain x 08/2017, after lifting [...] nshopefull y OT will continue Tobacco user 505737745 Z 72.0 initiate nicotine patch, counseled patient in detail including using patch and tobacco, partial response thus far [id number] Apollo Madrigal MD [address] [address] 06/23/2018 14:41:28 06/23/2018 15:43:40 Low back pain 302499298 M54.5 back pain x 08/2017, after lifting [...] other measures also discussed Increased blood pressure 21898640 R03.0 discussed NSA diet, exercise patient tolerated, and weight control, recheck BP in 1 week [id number] Apollo Madrigal MD [address] [place] [address] 07/09/2018 10:54:40 07/09/2018 11:35:09 Benign essential hypertension 3720806 I10 Low back pain 925319889 M54.5 back pain x 08/2017, after lifting a case, also a torn R bicep tendon, 7 mo of PT/ occupation al [employer]. question of spondyloly sis L5 on XR [...] Boone Hudson and that fax # is: [phone] XENIA FUNES NP [address] [place] [address] 09/17/2018 13:23:06 09/17/2018 13:40:59 Abdominal pain 06869055 R10.9 Predominan tly RUQ based. Hx of elevated LFT's I will recheck labs and order US. Possible gallstone. Advised if fever, chills, increased pain, N/V occurs go to ER. [id number] Apollo Madrigal MD [address] [place] [address] 10/09/2018 10:44:46 10/09/2018 11:24:36 Abnormal liver function 89743156 K76.89 steatohepa titis confirmed by ultrasound , Hep testing neg, will need Hep B immunizati on Tobacco de pendence syndrome 86434218 F17.200 no tobacco for several months Increased blood pressure 89692534 R03.0 discussed NSA diet, exercise patient tolerated, and weight control, BP variabilit y continues we will monitor Low back pain 581743459 M54.5 back pain x 08/2017, after lifting a case, also a torn R bicep tendon, 7 mo of PT/ occupation al [employer]. question of spondyloly sis L5 on XR [...] Boone Hudson and that fax # is: [phone] [phone] shows mild degenerati on that really does not explain his symptoms, we'll proceed with pain management evaluation as it does not appear to be a surgical problem [id number] Apollo Madrigal MD [address] [place] [address] 10/20/2019 12:50:52 10/20/2019 13:33:26 Adult health examination 330707169 Z00.00 HM discussed in detail with patient Tobacco de pendence syndrome 33065758 F17.200 unfortunat german has restarted tobacco Vitamin D deficiency 347 81137 E55.9 update serum vitamin D Morbid obesity 561319674 E66.01 last BMI of 73, unable to obtain today due to scale capacity, reinforced appropriat e diet and activity and weight controlPat ient is certainly a candidate for bariatric surgery Hypertensive disorder 38 984956 I10 elevated BP on recheck, initiate lisinopril 10 mg daily with side effects precaution s and instructio ns [id number] Apollo Madrigal MD [address] [place] [address] 11/03/2020 15:52:23 2020 08:37:33 Upper respiratory infection 17378526 J06.9 seems viral, instructed on symptomati c treatment, proceed with Covid testing, Patient will make arrangemen ts Increased blood pressure 98750786 R03.0 discussed NSA diet, exercise patient tolerated, and weight control, BP variabilit y continues we will monitorLas t blood pressure checked was stable [id number] Apollo Madrigal MD [address] [address] 08/10/2021 08:18:46 08/10/2021 08:46:43 Knee pain 35534854 M25.569 problems with right knee discomfort worse over the past several weeks, seems to be activity related, has no recent history of injury or traumaExam was difficult, we'll proceed with XR, instructed on ice, R OM, diclofenac gel, follow-up pending XR Increased blood pressure 11847769 R03.0 discussed NSA diet, exercise patient tolerated, and weight control, BP variabilit y continues we will monitornot ed elevated BP, follow-up appointmen t is pending [id number] Apollo Madrigal MD [address] [place] [address] 11/02/2021 16:00:59 11/02/2021 16:58:54 Influenza vaccine needed [id number] 106 Z23 Adult heal th examination 836739739 Z00.00 discussed in detail with patient, Update lab work Vitamin D deficiency 347 56648 E55.9 update serum vitamin D Tobacco de pendence syndrome 02162329 F17.200 unfortunat german has restarted tobacco, agreeable to a trial of vareniclin e, with side effects precaution s and instructio ns Essential hypertension 58073160 I10 reinforced previous recommenda tions for appropriat e diet and activity and weight control, restart lisinopril 10 mg daily [id number] Apollo Madrigal MD [address] [place] [address] 12/05/2021 16:34:00 12/06/2021 13:56:42 Influenza-like illness 02010229 B34.9 in the ER for nausea and vomiting, myalgias he was Covid negative, and negative with retesting, still with congestion chills mild cough off and on headache, L BMsDenies wheezing or hemoptysis Continue with symptomati c treatment, dietary adjustment , follow-up if he does not continue to improve Increased blood pressure 63506059 R03.0 discussed NSA diet, exercise patient tolerated, and weight control, BP variabilit y continues we will monitorLas t BPin the ER 141/87 [id number] Carey Cervantes NP [address] [place] [address] 04/01/2022 09:12:52 04/01/2022 09:42:32 Essential hypertension 31879829 I10 Uncontroll ed hypertensi on when patient [...] greater then 140/90 notify the office Snoring 58628871 R06.83 Ordered sleep study Vitamin D deficiency 347 18055 E55.9 Checked Vit D level Body mass index 40+ - severely obese 077994276 Z68.45 BMI 76Referred patient to nutritioni . Portion control, healthy food options, increase exercise Patient referred to bariatric surgery consult Smoker 19685930 F17.200 Smoking cessation advised [id number] ROBERTA SOTRM NP [address] [place] [address] 06/25/2022 12:38:24 06/25/2022 12:54:33 Acquired hydrocele 430348380 N43.3 referring to urology for f/u Epididymitis 99322146 N4 5.1 swelling and pain improved with abx, refering to urology for f/u [id number] Keaton Sarmiento [address] [place] [address] 09/19/2022 11:32:46 09/19/2022 12:40:44 Dietary management surveillance 088892926 Z71.3 Diet education 32294229 Z71.3 Obesity 195634098 E66.9 [id number] Caitlin Guillory MA [address] [place] [address] 03/12/2023 14:49:30 03/12/2023 15:38:20 Chest pain 59365407 R07.9 Order STAT treadmill stress test.Refer to cardiology .Inform patient chest pain comes back go immediatel y to the ER or call 911. Essential hypertension 72859817 I10 Controlled hypertensi on on lisinopril 10 [...] greater then 140/90 notify the office Anxiety 15399368 F41.9 Patient was given a prescripti on for Ativan take 1 tablet twice a day as needed [id number] Carey Cervantes NP [address] [place] [address] 03/28/2023 10:40:21 03/28/2023 11:23:18 Essential hypertension 06472917 I10 Controlled hypertensi on on lisinopril 10 [...] then 140/90 notify the office Chest pain 82405062 R07. 9 Unable to do treadmill stress test related to patient's weight.Has an appointmen t with cardiology already 05/15, needs referral for cardiac cathInform patient chest pain comes back go immediatel y to the ER or call 911. [id number] Carey Cervantes NP P [address] [address] 05/14/2023 11:10:21 05/14/2023 12:07:36 Chest pain 25074500 R07.9 Unable to do treadmill stress test related to patient's weight.Has an appointmen t with cardiology already 05/15, needs referral for cardiac cathInform patient chest pain comes back go immediatel y to the ER or call 911. Essential hypertension 23947015 I10 Controlled hypertensi on on lisinopril 10 [...] then 140/90 notify the office Morbid obesity 635007952 E66.01 Patient lost 18 pounds and has been going to a bariatric program in [facility] with weight loss Sleep apnea 46593509 G47 .30 Patient uses CPAP Tobacco de pendence syndrome 53544846 F17.200 Prescribe Bebeto hoffman cessation highly advised [id number] Carey Cervantes NP P [address] [place] [address] 07/11/2023 09:43:13 07/11/2023 10:42:14 Essential hypertension 84518595 I10 Well-contr olled hypertensi on on 10 [...] then 140/90 notify the office Sleep apnea 26967454 G47 .30 Patient uses CPAP every night Obesity 924986822 E66.9 Goal 500 lbs, continue with weight loss, dietary modificati ons, portion control and exercise. Chest pain 43204456 R07. 9 Unable to do treadmill stress test related to patient's weight.Ashley amaya has an appointmen t with cardiology in [place] 07/29/23[facility] orm patient chest pain comes back go immediatel y to the ER or call 911. Filled out disability paperwork unable to return back to work until cleared by cardiology [id number] MAGDI VILLARREAL MD P [address] [place] [address] 03/23/2024 14:08:06 03/23/2024 15:12:04 Viral upper respiratory tract infection 175996478 J06.9 mild cough, congestion , sore throat and fatigue.co vid and flu swabs negataive. today day 4 of sx.support rell care, rest, fluids, acetaminop hen.counse led on typical disease course, warning signs, and indication s for urgent and emergent evaluation . all questions answered. follow-up if symptoms persist or worsen. Morbid obesity 082370877 E66.01 -- dima has been working with [facility]. he dropped his wt from [...] note, dima reports he is followed by [facility] and he was sent to cardiac cath at [facility] for atypical chest pain. he says the cath was negative. he signed releases today for records from [facility] (the cath) and from [facility] -- counseled on smoking cessation. this will help w/ recovery from URI and also is important as he heads towards surgery. he's down to 1/4 ppd.-- BP controlled on lisinopril when rechecked w/ proper fitting thigh cuff on upper arm.-- FIDE, using cpap nightly. sleeping well w/ it. 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 i will place a referral with [facility] nutrition. pt will call us once he is three weeks into the new medicine to discuss how he is tolerating medication so that we can determine if ready to increase the following month's dose. we will also schedule 4 wk f/u. [id number] [address] [place] [address] 08/16/2024 10:00:43 08/16/2024 16:27:29 Abdominal pain 52100816 R10.9 Recheck patient's lipase level- it was 222 at [facility]. Also ordered amylase level, CBC, [...] prescribed ZofranIce chip, small sips of water [id number] Carey Cervantes NP [address] [address] 08/17/2024 14:43:53 08/17/2024 15:38:23 Abdominal pain 08197375 R10.9 Recheck patient's lipase level- it was 222 at [facility]. Also ordered amylase level, CBC, [...] Body mass index 40+ - severely obese 460224653 Z68.45 BMI 79He was seeing a nutritionmariaa sellers Portion control, healthy food options, increase exercise Patient referred to bariatric surgery consult, got down to 515 LBS, today 569 Nausea and vomiting 1693 2000 R11.2 Pending lab results patient may be referred to ER if electrolyt es are off or amylase and lipase are elevated.P atient prescribed ZofranIce chip, small sips of water [id number] Carey Cervantes NP [address] [address] 10/18/2024 13:46:40 10/18/2024 14:23:24 Pain of left wrist 8827745609 84406 M25.532 Referred to Orthopedis t Reviewed urgent care note Continue wearing wrist brace Elevate left arm and apply ice. Essential hypertension 99505089 I10 Well-contr olled hypertensi on on 10 [...] Body mass index 40+ - severely obese 915000009 Z68.45 BMI 79He was seeing a nutritioni Portion control, healthy food options, increase exercise Patient referred to bariatric surgery consult, got down to 515 LBS, today 10/2024 571 LBS.Strong ly encourage patient to follow-up with bariatric surgeon in [facility]. Sleep apnea 38361037 G47 .30 Patient uses CPAP every night Health Concerns Section Related Observation LastModified by Organization Detai ls LastModified Time None Recorded Concern Status LastModified by Organization Details LastModified Time None Recorded Advance Directives Directive None Recorded Payers Encounter Date Sequence Insurance Name Policy Number Policy Ricardo Covered Member ID Ricardo Member ID Guarantor Name 03/23/2024 1 [facility]) [id number] Dima M Debra [id number] Dima M Debra 04/14/2024 1 [facility]) [id number] Dima M [place] [id number] Dima M [place] 08/16/2024 1 [facility]) [id number] Dima M [place] [id number] Dima M [place] 08/17/2024 1 [facility]) [id number] Dima M [place] [id number] Dima M [place] 10/18/2024 1 [facility]) [id number] Dima M Debra [id number] Dima M Debra Notes Date Note Type [...] cig. PMH:morbid obesity (BMI 73.4). working with [facility] bariatric surg. he dropped his wt from 560 to 515 to qualify for surgery, but they recently told him he now needs to drop to 450 to qualify for gastric bypass. they've changed the parameters.HTN,cigarette s.FIDE on CPAPGERDNAFLDanxiety MAGDI VILLARREAL MD [address] [place] [address], [phone], [facility] [employer] [facility] 03/23/2024 21:35:19 4 text/html 33 yo man, ex-smoker (quit 2 yrs ago), morbid obesity with BMI>78 complicated by FIDE and chronic low back and knee pain, HTN, family hx of father w/ MT late 40s, and s/p appy. note, as [...] been seen at bariatric surg program at [facility].on diet 560 to 513, but then gained [...] once weekly.pt has trouble making it to [facility] and would prefer to see a local [...] one beer, not more. MAGDI VILLARREAL MD [address] [place] [address], [phone], [facility] [employer] 04/29/2024 14:31:53 4 text/html Telehealth visit, permission given by patient, both parties in the state of [place]. ER follow-up, 08/10 patient went to [facility] with complaint of abdominal pain and irretractable vomiting.33yoM w/ pmh extremely elevated BMI started on Wegovy 5 weeks ago, HTN, s/p appendectomy presenting with cc abdominal pain and vomiting, transferred from [facility] in [place] for CT imaging ([facility] was identified as a hospital with a [...] still not improved. Carey Cervantes, [address] [place], [phone], [facility] [employer] [facility] 08/17/2024 13:08:25 4 text/html Patient presents in office today with complaint of abdominal pain and vomiting. Insisted on being seen in the office for evaluation.Had a telehealth visit yesterday and also had labs done. Telehealth visit from yesterday Below: ER follow-up, 08/10 patient went to [facility] with complaint of abdominal pain and irretractable vomiting.33yoM w/ pmh extremely elevated BMI started on Wegovy 5 weeks ago, HTN, s/p appendectomy presenting with cc abdominal pain and vomiting, transferred from [facility] in [place] for CT imaging ([facility] was identified as a hospital with a [...] ago. Patient was seen bariatric surgery at [facility]. He was 560 and got down to [...] off his diet. Carey Cervantes, [address] [place], [phone], [facility] [employer] [facility] 08/17/2024 16:18:49 4 text/html Patient presents in office today with complaint of abdominal pain and vomiting. Insisted on being seen in the office for evaluation.Had a telehealth visit yesterday and also had labs done. Telehealth visit from yesterday Below: ER follow-up, 08/10 patient went to [facility] with complaint of abdominal pain and irretractable vomiting.33yoM w/ pmh extremely elevated BMI started on Wegovy 5 weeks ago, HTN, s/p appendectomy presenting with cc abdominal pain and vomiting, transferred from [facility] in [place] for CT imaging ([facility] was identified as a hospital with a [...] ago. Patient was seen bariatric surgery at [facility]. He was 560 and got down to [...] restart going to the bariatric program at [facility]. Patient reports he has not been able [...] referral to Ortho. Carey Cervantes, [address] [place], [address], [facility] [employer] [facility] 10/18/2024 14:32:23
== END 2025-03-28 15:36 | disposition home or self-care (01) ==
LOC: HO.HBST 15:29
PROVIDERS: PCP Nurse Practitioner Adult Health; Visit Provider Counselor Mental Health
DX: F50.9 Eating disorder, unspecified (principal); Z71.89 Other specified counseling
CPT/HCPCS: 90791

== ENCOUNTER 2025-04-11 10:27 | Outpatient (AMB) | payer OTHER, SELFPAY ==
--- NOTE | 2025-04-11 10:20 | A.OFFWM_ITS ---
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 F/U [facility] Medical History FIDE on CPAP HTN (hypertension) with goal to be determined Morbid obesity Surgical History Hx of appendectomy Hx of adenoidectomy Hx of tonsillectomy Social History Alcohol intake: current Alcohol intake frequency: holidays/special occasions only Patient Tobacco Use Status: Current everyday Tobacco user Cigarettes Per Day: 5 Behavioral Health Assessment Weight Management Therapy Therapy Notes Details The patient is a 34-year-old male presenting for a second visit to complete the behavioral health assessment as part of the surgical weight loss program. He reports being overweight for most of his life, though he was physically active in high school and participated in weightlifting. Significant weight gain began after a work-related back injury in 2017, which led to over a year of inactivity and a gain of more than 100 lbs. Since then, his weight has continued to increase. He is now motivated to become healthier, more active, and improve his overall well-being. The patient describes a long history of inconsistent eating habits, including frequently skipping meals and lacking structure. He notes a strong enjoyment of food and past episodes of mindless eating, with difficulty recognizing fullness and stopping once he started eating. Since beginning the program, however, he has developed more structured eating patterns and is learning to better identify hunger and satiety cues. He denies any history of mental health treatment, psychiatric hospitalization, or behavioral health crises. There are no reported or observed concerns related to suicidal ideation, self-harm, or substance use. BES scores indicate mode-low risk for binge eating, and PHQ-9 results show no current symptoms of depression. His mental status exam is within normal limits, with no signs of functional impairment. The patient is cleared from a behavioral health standpoint at this time. Presenting Concerns Referral Source WMP-Provider. Reason for referral Completion of behavioral health assessment as part of process for weight-loss surgery. Precipitating Event Obesity. Living Situation Current Living Situation Own At risk of losing current housing? No Satisfied with current living situation? Yes Comments PT lives alone with his 2 cats. Food/Weight/Diet Expectations of change The initial pre-surgical weight loss goal is a 20% reduction from the starting weight, approximately 100 lbs, with a target weight of 450 lbs prior to surgery. The patient began the program on 03/16/2025 at a weight of 553 lbs (measured at the hospital). On 03/24/2025, he reported a weight of 558 lbs using his home scale. As of 04/14/2025, his weight is 547 lbs, indicating progress toward the pre-operative goal. PT is implementing the following: Current meal plan: Using [employer] site. He has a combination of protein shakes, bars, and 1 meal at day 24F/24 Exercise plan: burning 250 calories per day. He has a stationary bike at home. Scale: not due to weight limits. Communication with provider: Yes, on . History/Relationship with food The patient reports a previously inconsistent approach to eating, often skipping breakfast and lacking structure or planning around meals. He describes a strong enjoyment of food and notes episodes of mindless eating, during which he was not always aware he was eating. He also reported difficulty recognizing fullness cues, frequently eating quickly and having trouble stopping once he started. Example of meals before starting the program: Breakfast: Skip Lunch: @2pm, fast food ([employer]: Large combo burger, fries, soda)or a beef jerky out of the gas stating. Dinner: @7pm. Take out daily. Irish food (quesadilla, 3 tacos), Pizza (5-6 slices for dinner, 1-2 times x week). Snacks: chips. Drinks/Liquids: Coffee: 1 large from [employer] w/ cream and sugar. Soda: 1 20oz bottle or the large side cup at day. Juice: None. Energy drinks: none in a couple of years. History/Relationship with weight The patient reports being mostly overweight throughout his life but remained physically active during high school, participating in weightlifting. Weight was not a significant concern until 2016, when a work-related back injury resulted in over a year of inactivity and led to a weight gain of more than 100 lbs. Since then, he has experienced a gradual and sustained increase in weight. Over the past 10 years, his lowest recorded weight was 387 lbs in 2017, and his highest was 580 lbs, reached last year. History/Relationship with dieting [place] last year (July 2024). Different diets. 2023 - Hypnosis. Didn't work Binge Eating Do you frequently eat large amounts of food in short periods of time, not feeling physically hungry? No Do you feel out of control when you eat a large amount of food in a short period of time? Yes Do you eat large amounts of food rapidly and typically alone? Yes Night Eating Do you wake up at least once during the night to eat? No If you wake up in the night, do you find that it is necessary to eat something in order to fall back asleep? No Do you have little or no appetite in the morning and feel very hungry in the evening, often overeating between dinner and when you go to bed? Yes Social History Family history and relationship PT is single, never , and doesn't have any children. PT was adopted at age 4. PT has his mom (adopted) and step-dad, who are in [place], and they are close, and see each other 2x week. He also has a close friend with whom he plays bowling. Adoptive parents when he was a child and remarried. He has step-sisters from his adoptive parents. He meet 2 bio-siblings recently and is in touch with bio-father, he also has 1 bio-siblings he doesn't know, he also has another half-sibling he doesn't know. 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 Developmental history and status None reported. Currently WNL. Social support Uncle, mother, step-dad, 2 of his best friends. Community support PCP Christianity/Spirituality None. Cultural/Ethnic information . Legal Involvement and History Current or historical involvement with the legal system? None. Education Highest grade completed Some college. Preferred learning style Learn by doing and Visual Currently enrolled in educational program? No Interested in further educational program? No Educational Interests/Skills Bowling. 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 ) Wants help to find employment? No Meaningful activities Bowling. Watch movies. Financial Situation Describe current financial situation Comfortable Financial assistance? None Service Service? No Mental Health and Addiction Treatment Current/Past substance abuse? No Comments Alcohol: 1 or less at month. Has no more than 3 drinks. Cigarettes/Tobacco: yes. About 10 at day. Cannabis/Edibles: None. Current/Past addictive behavior concerns? No Psychiatric history PT report he has never been in counseling before. Denies ever been inpatient or in crisis. Also denies any safety concerns around self-harm/other harm. Medical and Physical Health Summary Additional Medical History not covered in history None. Sexual History concerns None reported Physical exam in the last year? Yes Pain Screening Current pain? Yes Pain in the last few months? Yes Comments back pain after back injury. Medications Is the patient compliant with medications? Not applicable Does the patient have Schneider Guardian in place? Not applicable Does the patient use complimentary health approaches? No Trauma/Abuse History History of trauma? No Questionnaires PHQ-9 Over the last 2 weeks, how often have you been bothered by any of the following problems? 1. Little interest or pleasure in doing things: not at all 2. Feeling down, depressed, or hopeless: not at all 3. Trouble falling or staying asleep, or sleeping too much: several days ( Trouble falling) 4. Feeling tired or having little energy: not at all 5. Poor appetite or overeating: not at all 6. Feeling bad about yourself - or that you are a failure or have let yourself or your family down: not at all 7. Trouble concentrating on things, such as reading the newspaper or watching television: not at all 8. Moving or speaking so slowly that other people could have noticed. Or the opposite - being so fidgety or restless that you have been moving around a lot more than usual: not at all 9. Thoughts that you would be better off or of hurting yourself in some way: not at all Total score: 1 Depression Screening Interpretation: Negative Depression Screening Done: Yes 44225 - PHQ-9 Billing: Yes Source: Developed by Drs. Syd Branch, Sabrina Lackey, Luan Rivas and colleagues, with an educational fide from [employer]. Binge Eating Scale Group 1 A. I don't feel self-conscious about my wt. or body size when I'm with others. B. I feel concerned about how I look to others, but it normally does not make me fell disappointed with myself C. I do get self-conscious about my appearance and wt. which makes me feel disappointed in myself. D. I feel very self-conscious about my wt. and frequently I feel intense shame and disgust for myself. I try to avoid social contacts because of my self- consciousness. Response Group 1: C Group 2 A. I don't have any difficulty eating slowly in the proper manner. B. Although I seem to gobble down foods, I don't end up feeling stuffed because of eating to much. C. At times, I tend to eat quickly and then, I feel uncomfortably full afterwards. D. I have the habit of bolting down my food, without really chewing it. When this happens I usually feel uncomfortably stuffed because I've eaten to much. Response Group 2: B Group 3 A. I feel capable to control my eating urges when I want to. B. I feel like I have failed to control my eating more than the average person. C. I feel utterly helpless when it comes to feeling in control of my eating urges. D. Because I feel so helpless about controlling my eating I have become very desperate about trying to get control. Response Group 3: D Group 4 A. I don't have the habit of eating when I'm bored. B. I sometimes eat when I'm bored, but often I'm able to get busy and get my mind off food. C. I have a regular habit of eating when I'm bored, but occasionally, I can use some other activity to get my mind off eating. D. I have a strong habit of eating when I'm bored. Nothing seems to help me breath the habit. Response Group 4: B Group 5 A. I'm usually physically hungry when I eat something. B. Occasionally, I eat something on impulse even though I really am not hungry. C. I have the regular habit of eating foods, that I might not really enjoy, to satisfy a hungry feeling even though physically, I don't need the food. D. Although I'm not physically hungry, I get a hungry feeling in my mouth that only seems to be satisfied when I eat a food, like sandwich, that fills my mouth. Sometimes, when I eat the food to satisfy my mouth hunger, I then spit the food out so I won't gain weight. Response Group 5: A Group 6 A. I don't feel any guilt or self-hate after I overeat. B. After I overeat, occasionally I feel guilt or self-hate. C. Almost all the time I experience strong guilt or self-hate after I overeat. Response Group 6: A Group 7 A. I don't lose total control of my eating when dieting even after periods when I overeat. B. Sometimes when I eat a forbidden food on a diet, I feel like I blew it and eat even more. C. Frequently, I have the habit of saying to myself, I've blown it now, why not go all the way, when I overeat on a diet. When that happens I eat more. D. I have a regular habit of starting a strict diets for myself but I break the diets by going on an eating binge. My life seems to be either a feast or famine. Response Group 7: B Group 8 A. I rarely eat so much food that I feel uncomfortably stuffed afterwards. B. Usually about once a month, I each such a quantity of food, I end up feeling very stuffed. C. I have regular periods during the month when I eat large amounts of food, either at mealtime or at snacks. D. I eat so much food that I regularly feel quite uncomfortable after eating and sometimes a bit nauseous. Response Group 8: C Group 9 A. My level of calorie intake does not go up very high or go down very low on a regular basis. B. Sometimes after I overeat, I will try to reduce my caloric intake to almost nothing to compensate for the excess calories I've eaten. C. I have a regular habit of overeating during the night. It seems that my routine is not to be hungry in the morning but overeat in the evening. D. In my adult years, I have had week-long periods where I practically starve myself. This follows periods when I overeat. It seems I live a life of either feast or famine. Response Group 9: C Group 10 A. I usually am able to stop eating when I want to. I know when enough is enough. B. Every so often, I experience a compulsion to eat which I can't seem to control. C. Frequently, I experience strong urges to eat which I seem unable to control, but at other times I can control my eating urges. D. I feel incapable of controlling urges to eat. I have a fear of not being able to stop eating voluntarily. Response Group 10: B Group 11 A. I don't have any problem stopping eating when I feel full. B. I usually can stop eating when I feel full but occasionally overeat leaving me feeling uncomfortably stuffed. C. I have a problem stopping eating once I start and usually I feel uncomfortably stuffed after I eat a meal. D. Because I have a problem not being able to stop eating when I want, I sometimes have to induce vomiting to relieve my stuffed feeling. Response Group 11: B Group 12 A. I seem to eat just as much when I'm with others, Family social gatherings as when I'm by myself. B. Sometimes, when I'm with other persons, I don't eat as much as I want to eat because I'm self-conscious about my eating. C. Frequently, I eat only a small amount of food when others are present, because I'm very embarrassed about my eating. D. I feel so ashamed about overeating that I pick times to overeat when I know no one will see me. I feel like a closet eater. Response Group 12: B Group 13 A. I eat three meals a day with only an occasional between meal snack. B. I eat 3 meals a day, but I also normally snack between meals. C. When I am snacking heavily, I get in the habit of skipping regular meals. D. There are regular periods when I seem to be continually eating, with no planned meals. Response Group 13: C Group 14 A. I don't think much about trying to control unwanted eating urges. B. At least some of the time, I feel my thoughts are pre-occupied with trying to control my eating urges. C. I feel that frequently I spend much time thinking about how much I ate or about trying not to eat anymore. D. It seems to me that most of my waking hours are pre-occupied by thoughts about eating or not eating. I feel like I'm constantly struggling not to eat. Response Group 14: A Group 15 A. I don't think about food a great deal. B. I have strong craving for food but they last only for brief periods of time. C. I have days when I can't seem to think about anything else but food. D. Most of my days seem to be pre-occupied with thoughts about food. I feel like I live to eat. Response Group 15: B Group 16 A. I usually know whether or not I'm physically hungry. I take the right portion of food to satisfy me. B. Occasionally, I feel uncertain about knowing whether or not I'm physically hungry. A these times it's hard to know how much food I should take to satisfy me. C. Even though I might know how many calories I should eat, I don't have any idea what is a normal amount of food for me. Response Group 16: C Binge Eating Score: 20 Score less than 17 Minimal Risk Score between 18-26 Moderate Risk Score between 27-46 High Risk Assessment & Plan Assessment & Plan (1) Eating disorder, unspecified: Code(s): F50.9 - Eating disorder, unspecified (2) Pre-bariatric surgery psychological evaluation: Code(s): Z71.89 - Other specified counseling Plan The patient is cleared from a behavioral health standpoint and may be submitted for insurance approval when appropriate. He has been informed of available behavioral health resources and support services, should any needs arise. A follow-up appointment will be scheduled post-operatively for continued support, or sooner if the patient expresses interest. Telehealth Telehealth [facility]health [facility]: [facility] Location of provider rendering services: other Location of patient: address on file Patient Identification confirmed using: Name, : Yes Telehealth method: voice only Patient verbally consented to treatment: Yes Patient verbally consented to billing insurance company: Yes Patient informed of any privacy concerns related to visit: Yes Minutes spent on Phone/Video with Pt.: 40 Coding Level of Care Code Established Pt Tele Psytx 45 mins (29182) Patient Type Established Diagnoses Eating disorder, unspecified F50.9 Pre-bariatric surgery psychological evaluation Z71.89 Additional Codes PHQ-9 - 13095 - PHQ-9 Billing: Yes ([id number]) Time Spent (min) 40
--- OUTSIDE RECORDS SUMMARY | 2025-04-11 11:04 | XMS_ITS | Data Portability ---
Author Organization [place] - [facility] [facility], [facility] Mix House Operator Address [address] [place] [address] Care Team Providers Care Marine [employer]essionals Name Role Phone YOHANNES CAREY Primary Care Provider ABE GENAO Dairy Consultant [phone] Assessment Encounter Date Assessment Date Assessment LastModified by Organization Details LastModified Time 04/14/2024 04/14/2024 Telehealth appointment. The patient agreed to the telehealth appointment and confirmed they were in a safe and private space to perform the visit. Location of the visit was home in the [facility]. The visit was done over phone. Duration of the visit was _12:33___min. In addition to the patient, no one else participated. lamin Not available 04/14/2024 13:19:35 Plan of Treatment Reminders Order Date Submit Date Provider Last Modified By Organization Details Last Modified Time Details Appointments None recorded. Lab CBC w/ diff [email or web address] [place] [address] - [facility], [address] [place] [address], [address], 4 13:01:27 CMP, serum or plasma 2023 024 [facility], [address] [place] [address], [address], 4 01:36:12 amylase, serum or plasma 2023 024 [facility], [address] [place] [address], [address], 4 01:36:13 lipase, serum or plasma 2023 024 [facility], [address] [place] [address], [address], 4 01:36:14 CBC w/ diff [address], [address] [place] [address], [address], 4 14:06:56 CMP, serum or plasma [address], [address] [place] [address], [address], 4 15:35:10 HbA1c (hemoglob in A1c), blood [address], [address] [place] [address], [address], 4 14:06:56 lipid panel, serum [address], [address] [place] [address], [address], 4 15:35:10 rapid flu (A+B) 2023 024 SANDRA In-Office Order, Internal Use Only DO Not Attach Compendium DO Not Attach Compendium, Do Not Delete/merge, [id number] 08:26:28 SARS CoV 2 RNA, QL, NATHANIEL+probe , respirato ry specimen 2023 024 SANDRA In-Office Order, Internal Use Only DO Not Attach Compendium DO Not Attach Compendium, Do Not Delete/merge, [id number] 08:27:12 Referral orthopedi c surgeon referral 2023 024 [facility], [address] [place], [address], 5 13:26:43 nutrition ist/rima marin referral - referral to [facility] nutrition : pt is strugglin g w/ BMI > 78 with FIDE, LBP, b/l knee pain, LEON. he was told at [facility] he is too heavy to proceed w/ surgery. pt is about to embark on GLP1/GIP therapy if insurance will cover. pt would like dietary help from nutrition ist. thank you 2023 024 [email or web address] [facility], [address] [facility], [facility], [place], [address], 4 13:16:27 Procedures None recorded. Surgeries None recorded. Imaging None recorded. Medication Orders ondansetr on 8 mg disintegr ating tablet 2023 024 [id number], [address] [place], [address], 4 10:08:17 Mounjaro 2.5 mg/0.5 mL subcutane ous pen injector 2023 024 [email or web address] [facility], [address] [place] [address], [address], 4 15:06:11 Patient TargetsNo targets recorded. Patient Instructions Encounter Date Encounter Id Patient Instructions Last Modified By Organization Details Last Modified Time 03/23/2024 [id number] When You Want to Lose Weight: Care Instructions lamin Not available 03/23/2024 21:35:12 Reason for Referral Parts Control Clerk/dietitian Refer ral for Extreme obesity with alveolar hypoventilation referral to [facility] nutrition: pt is struggling w/ BMI > 78 with FIDE, LBP, b/l knee pain, LEON. he was told at [facility] he is too heavy to proceed w/ surgery. pt is about to embark on GLP1/GIP therapy if insurance will cover. pt would like dietary help from commercial electrician. thank you Referring Physician: Magdi Villarreal, Internal [...] DO Not Attach Compendium, Do Not Delete/merge, [id number] 03/23/2024 21:28:36 03/24/20 24 03/24/2024 SARS CoV 2 RNA, QL, NATHANIEL+p robe, respi rator y speci men Unknown Analyte neg Not Available In-Off ice Order Internal Use Only DO Not Attach Compendium DO Not Attach Compendium, Do Not Delete/merge, [id number] 03/23/2024 21:28:36 03/24/20 24 03/24/2024 rapid flu (A+B) Flu negati ve Not Available In-Office Order Internal Use Only DO Not Attach Compendium DO Not Attach Compendium, Do Not Delete/merge, [id number] 03/23/2024 21:28:26 08/16/20 24 08/17/2024 COMPR EHENS RELL METAB OLIC PANEL glucose 111 mg/dL 65-99 high Fasti ng refer ence inter jazmín For someo ne witho ut known diabe mary lou, a gluco se value betwe en 100 and 125 mg/dL is consi stent with predi abete s and shoul d be confi rmed with a follo w-up test. Not Available [facility] [place] [facility] [address] [place], [address], 08/17/2024 01:36:09 08/16/20 24 08/17/2024 COMPR EHENS RELL METAB OLIC PANEL urea nitrogen (BUN) 17 mg/dL 7-25 normal Not Available [facility] [place] [facility] [address], [place], [address], 08/17/2024 01:36:09 08/16/20 24 08/17/2024 COMPR EHENS RELL METAB OLIC PANEL creatinine 0.88 mg/dL 0.60-1 .26 normal Not Available [facility] [address], [place], [address], 08/17/2024 01:36:09 08/16/20 24 08/17/2024 COMPR EHENS RELL METAB OLIC PANEL eGFR 118 mL/mi n/1.7 3m2 > or = 60 normal Not Available [facility] [address], [place], [address], 08/17/2024 01:36:09 08/16/20 24 08/17/2024 COMPR EHENS RELL METAB OLIC PANEL BUN/creatini ne ratio SEE NOTE: (calc ) 6-22 Not Repor norma: BUN and Creat inine are withi n refer ence range . Not Available [facility] [address], [place], [address], 08/17/2024 01:36:09 08/16/20 24 08/17/2024 COMPR EHENS RELL METAB OLIC PANEL sodium 136 mmol/ L 135-14 6 normal Not Available [facility] [address], [place], [address], 08/17/2024 01:36:09 08/16/20 24 08/17/2024 COMPR EHENS RELL METAB OLIC PANEL potassium 4.8 mmol/ L 3.5-5. 3 normal Not Available [facility] [address], [place], [address], 08/17/2024 01:36:09 08/16/20 24 08/17/2024 COMPR EHENS RELL METAB OLIC PANEL chloride 103 mmol/ L 98-110 normal Not Available [facility] [address], [place], [address], 08/17/2024 01:36:09 08/16/20 24 08/17/2024 COMPR EHENS RELL METAB OLIC PANEL carbon dioxide 24 mmol/ L 20-32 normal Not Available [facility] [address], [place], [address], 08/17/2024 01:36:09 08/16/20 24 08/17/2024 COMPR EHENS RELL METAB OLIC PANEL calcium 9.2 mg/dL 8.6-10 .3 normal Not Available [facility] [address], [place], [address], 08/17/2024 01:36:09 08/16/20 24 08/17/2024 COMPR EHENS RELL METAB OLIC PANEL protein, total 6.6 g/dL 6.1-8. 1 normal Not Available [facility] [address], [place], [address], 08/17/2024 01:36:09 08/16/20 24 08/17/2024 COMPR EHENS RELL METAB OLIC PANEL albumin 4.0 g/dL 3.6-5. 1 normal Not Available [facility] [address], [place], [address], 08/17/2024 01:36:09 08/16/20 24 08/17/2024 COMPR EHENS RELL METAB OLIC PANEL globulin 2.6 g/dL_ (calc ) 1.9-3. 7 normal Not Available [facility] [address], [place], [address], 08/17/2024 01:36:09 08/16/20 24 08/17/2024 COMPR EHENS RELL METAB OLIC PANEL albumin/glob ulin ratio 1.5 (calc ) 1.0-2. 5 normal Not Available [facility] [place] [facility] [address], [place], [address], 08/17/2024 01:36:09 08/16/20 24 08/17/2024 COMPR EHENS RELL METAB OLIC PANEL bilirubin, total 0.9 mg/dL 0.2-1. 2 normal Not Available [facility] [address], [place], [address], 08/17/2024 01:36:09 08/16/20 24 08/17/2024 COMPR EHENS RELL METAB OLIC PANEL alkaline phosphatase 51 U/L 36-130 normal Not Available [facility] [employer] [facility] [address], [place], [address], 08/17/2024 01:36:09 08/16/20 24 08/17/2024 COMPR EHENS RELL METAB OLIC PANEL AST 20 U/L 10-40 normal Not Available [facility] [address], [place], [address], 08/17/2024 01:36:09 08/16/20 24 08/17/2024 COMPR EHENS RELL METAB OLIC PANEL ALT 37 U/L 9-46 normal Not Available [facility] [address], [place], [address], 08/17/2024 01:36:09 08/16/20 24 08/17/2024 CBC (INCL UDES DIFF/ PLT) white blood cell count 10.2 thous and/u L 3.8-10 .8 normal Not Available [facility] [address], [place], [address], 08/17/2024 01:36:13 08/16/20 24 08/17/2024 CBC (INCL UDES DIFF/ PLT) red blood cell count 6.68 lb on/uL 4.20-5 .80 high Not Available [facility] [place] [facility] [address], [place], [address], 08/17/2024 01:36:13 08/16/20 24 08/17/2024 CBC (INCL UDES DIFF/ PLT) hemoglobin 19.5 g/dL 13.2-1 7.1 high Verif ied by repea t fide sis. Not Available [facility] [place] [facility] [address], [place], [address], 08/17/2024 01:36:13 08/16/2008/17/2024 CBC (INCL UDES DIFF/ PLT) hematocrit 59.5 % 38.5-5 0.0 high Verif ied by repea t fide sis. Not Available [facility] [place] [facility] [address], [place], [address], 08/17/2024 01:36:13 08/16/20 24 08/17/2024 CBC (INCL UDES DIFF/ PLT) MCV 89.1 fL 80.0-1 00.0 normal Not Available [facility] [place] [facility] [address], [place], [address], 08/17/2024 01:36:13 08/16/2008/17/2024 CBC (INCL UDES DIFF/ PLT) MCH 29.2 pg 27.0-3 3.0 normal Not Available [facility] [place] [address], [place], [address], 08/17/2024 01:36:13 08/16/2008/17/2024 CBC (INCL UDES DIFF/ PLT) MCHC 32.8 g/dL 32.0-3 6.0 normal Not Available [facility] [place] [address], [place], [address], 08/17/2024 01:36:13 08/16/20 24 08/17/2024 CBC (INCL UDES DIFF/ PLT) RDW 14.4 % 11.0-1 5.0 normal Not Available [facility] [place] [address], [place], [address], 08/17/2024 01:36:13 08/16/20 24 08/17/2024 CBC (INCL UDES DIFF/ PLT) platelet count 287 thous and/u L 140-40 0 normal Not Available [facility] [place] [facility] [address], [place], [address], 08/17/2024 01:36:13 08/16/2008/17/2024 CBC (INCL UDES DIFF/ PLT) MPV 12.2 fL 7.5-12 .5 normal Not Available [facility] [place] [facility] [address], [place], [address], 08/17/2024 01:36:13 08/16/20 24 08/17/2024 CBC (INCL UDES DIFF/ PLT) absolute neutrophils 6905 cells /uL 1500-7 800 normal Not Available [facility] [place] [facility] [address], [place], [address], 08/17/2024 01:36:13 08/16/20 24 08/17/2024 CBC (INCL UDES DIFF/ PLT) absolute lymphocytes 2060 cells /uL 850-39 00 normal Not Available [facility] [place] [facility] [address], [place], [address], 08/17/2024 01:36:13 08/16/2008/17/2024 CBC (INCL UDES DIFF/ PLT) absolute monocytes 969 cells /uL 200-95 0 high Not Available [facility] [address], [place], [address], 08/17/2024 01:36:13 08/16/20 24 08/17/2024 CBC (INCL UDES DIFF/ PLT) absolute eosinophils 245 cells /uL 15-500 normal Not Available [facility] [place] [facility] [address], [place], [address], 08/17/2024 01:36:13 08/16/20 24 08/17/2024 CBC (INCL UDES DIFF/ PLT) absolute basophils 20 cells /uL 0-200 normal Not Available [facility] [place] [facility] [address], [place], [address], 08/17/2024 01:36:13 08/16/20 24 08/17/2024 CBC (INCL UDES DIFF/ PLT) neutrophils 67.7 % normal Not Available [facility] [place] [address], [place], [address], 08/17/2024 01:36:13 08/16/20 24 08/17/2024 CBC (INCL UDES DIFF/ PLT) lymphocytes 20.2 % normal Not Available [facility] [place] [address], [place], [address], 08/17/2024 01:36:13 08/16/20 24 08/17/2024 CBC (INCL UDES DIFF/ PLT) monocytes 9.5 % normal Not Available [facility] [place] [address], [place], [address], 08/17/2024 01:36:13 08/16/20 24 08/17/2024 CBC (INCL UDES DIFF/ PLT) eosinophils 2.4 % normal Not Available [facility] [place] [address], [place], [address], 08/17/2024 01:36:13 08/16/20 24 08/17/2024 CBC (INCL UDES DIFF/ PLT) basophils 0.2 % normal Not Available [facility] [place] [address] [place], [place], [address], 08/17/2024 01:36:13 08/16/20 24 08/17/2024 AMYLA SE amylase 28 U/L 21-101 normal Not Available [facility] [place] [facility] [address], [place], [address], 08/17/2024 01:36:13 08/16/20 24 08/17/2024 LIPAS E lipase 9 U/L 7-60 normal Not Available [facility] [place] [facility] [address], [place], [address], 08/17/2024 01:36:14 Result Notes None recorded. Problems Name Problem SNOMED Code Status Onset Date Resolution Date Notes Provider Name and Address Organization Details Recorded Time Morbid obesity 400980999 Active Not Available [facility] 3 20:58:36 Sleep apnea 85597086 Active 07/2022 Moderate , CPAP Not Available [facility] 3 20:58:37 Obesity 788456791 Active Not Available [facility] 3 20:58:36 Benign essentia l hyperten everardo 9987300 Completed 10/09/2018 Apollo Madrigal MD [address] [place] [address], [address], [facility] - [employer] [employer] 8 11:26:50 Asthma 379755538 Completed 05/03/2014 Moisés hu DO [address] [place] [address], [address], [facility] 4 14:22:19 Vitamin D deficien cy 70130302 Active Not Available [facility] 3 20:58:36 Tobacco dependen ce syndrome 77678009 Active Not Available [facility] 3 20:58:37 Low back pain 746790368 Active 2017 Not Available [facility] 3 20:58:36 White blood cell disorder 37084289 Active 2017 Not Available [facility] 3 20:58:36 Abnormal liver function 59098327 Active 2017 steatohe patitis by ultrasou nd Not Available [facility] 3 20:58:37 Abdomina l pain 92896559 Active 2017 Not Available [facility] 3 20:58:36 Essentia l hyperten everardo 92422835 Active 2021 Not Available [facility] 3 20:58:37 Body mass index 40+ - severely obese 761651900 Active 2021 Not Available [facility] 3 20:58:36 Epididym itis 17689186 Active 2021 Not Available [facility] 3 20:58:36 Chest pain 01005019 Active 2022 Carey Cervantes NP [address] [place] [address], [address], [facility] [employer] [facility] 3 15:54:47 Anxiety 46154255 Active 2022 Carey Cervantes NP [address] [place] [address], [address], [facility] [employer] [facility] 3 15:54:49 Notes:Some problems listed i n Documents: #[id number], #[id number] could not be added to this patient's chart. Please review these documents and add these problems to the patient's chart manually as needed. Problem Notes None recorded. Procedures Surgical History Date Name Laterality Status Provider Name and Address Organization Details Recorded Time 023 cardiac catheterization completed Carey Cervantes NP [address] [place] [address], [address], [facility] [employer] [facility] 04/04/2024 19:41:13 014 Smoking Cessation 3 to 10 min completed Moisés Lam DO [address] [place] [address], [address], [facility] [employer] [facility] 05/03/2014 14:41:29 Tonsillectomy/[place] oids completed Moisés Lam DO [address] [place] [address], [address], [facility] [employer] [facility] 05/03/2014 14:13:54 Imaging Results None recorded. Procedure [...] Not Available Not Available Not Available levofloxa kritsen 500 mg tablet 03/12 completed Not Available [...] Available Not Available Not Available [employer]arix Quad 3738-6300 (PF) 60 mcg (15 mcg x 4)/0.5 [...] 194 mm[Hg] 77 mm[Hg] Santa Peoples CMA [facility] [employer] [facility] 14:17:48 Date Recorded Systolic blood pressure Diastolic blood pressure Provider Name and Address Organization Details Last Updated DateTime 03/23/2024 132 mm[Hg] 84 mm[Hg] MAGDI VILLARREAL MD [address] [place] [address], [address], [place] - [employer] [facility] 03/23/2024 15:00:59 Date Recorded Body height Body mass index (BMI) Body weight Respiratory rate Body temperature Heart rate Oxygen saturation Oxygen saturation in Arterial blood by Pulse oximetry Systolic blood pressure Diastolic blood pressure Provider Name and Address Organization Details Last Updated DateTime 4 180.34 cm 79.4 kg/m2 076023. 76 g 16 /min 99.1 [degF] 105 /min 97 % 97 % 127 mm[Hg] 86 mm[Hg] Caitlin Guillory MA [facility] [employer] [facility] 15:10:01 Date Recorded Body height Body mass index (BMI) Body weight Oxygen saturation Oxygen saturation in Arterial blood by Pulse oximetry Heart rate Body temperature Provider Name and Address Organization Details Last Updated DateTime 180.34 cm 79.6 kg/m2 943053. 24 g 96 % 96 % 91 /min 98 [degF] Liya Moulton, FOOD SERVICE WORKER [address] [place], [address], [facility] [employer] [facility] 4 13:59:31 Date Recorded Systolic blood pressure Diastolic blood pressure Provider Name and Address Organization Details Last Updated DateTime 10/18/2024 138 mm[Hg] 86 mm[Hg] Carey Cervantes, N P [address] [place], [address], [place] [employer] [facility] 10/18/2024 14:21:11 Social History Question Answer Notes LastModified by Organizat ion Details LastModified Time Tobacco Smoking Status Current Every Day Smoker Constance burr, [place] - [employer] [facility] 12/25/2012 14:06:49 What Is Your Level Of Caffeine Consumption? Occasional Information not available 12/25/2012 What Type Of Diet Are You Following? REGULAR Information not available 11/02/2021 Which Illicit Or Recreational Drugs Have You Used? NO Information not available 12/25/2012 Dental Home Name? Dr. Sol pina Informa tion not available 07/11/2023 Dental Care Received In Past 6 Months? Yes silvana Information not available 07/11/2023 Language Bur[place]ian Information no t available 07/07/2018 Country Of Origin [facility] Informa tion not available 07/07/2018 Dietary Regular [...] ion Details LastModified Time What is your level of alcohol consumption? 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 Occasional Information not available 07/07/2018 Mental Status None recorded. Family History Nothing Reported Notes:Updated 07/07/18 SR Medical History Condition Response Asthma, COPD, Breathing or Lung Disorder Y Gout N Anxiety/Depression N Cardiac History, Heart Murmur, [place] N Eye or Vision Problems N Gynecologic [...] virus, trivalent, preservative 3 completed Not Available [facility] 12/18/2019 02:38:28 Influenza, MDCK, quadrivalent, preservative 1 completed Apollo Madrigal MD [address] [place] [address], [address], [facility] - [facility] [employer] [facility] 11/02/2021 16:54:52 Hep B, unspecified formulation 3 completed Not Available [facility] 03/06/2023 20:58:37 Hep B, unspecified formulation 3 completed Not Available [facility] 03/06/2023 20:58:37 Hep B, unspecified formulation 4 completed Not Available [facility] 03/06/2023 20:58:37 Tdap 1 completed Not Available [facility] 03/06/2023 20:58:37 MMR 4 completed Not Available [facility] 03/06/2023 20:58:37 MMR 3 completed Not Available [facility] 03/06/2023 20:58:37 Past Encounters Encounter ID Performer Location Encounter Start Date Encounter Closed Date Diagnosis/Indication Diagnosis SNOMED-CT Code Diagnosis ICD10 Code Diagnosis Note [id number] Yunior Campbell res, MD [address] [place] [address] 12/25/2012 13:50:23 12/25/2012 14:58:[id number]N, [place] [address] [place] [address] 01/18/2013 13:36:30 01/18/2013 15:52:02 [id number] Yunior Campbell res, MD [address] [place] [address] 02/18/2013 12:29:45 02/18/2013 13:25:09 [id number]N, [place] [address] [place] [address] 02/19/2013 13:41:10 02/19/2013 16:03:39 [id number] Moisés Lam DO [address] [place] [address] 05/03/2014 13:41:41 05/03/2014 16:30:55 Morbid obesity 366350333 Patient is 427 lbs with BMI of [...] progress on his own. Increased blood pressure 37315727 Patient has had 2 reading of elevated [...] weight loss support. Tobacco de pendence syndrome 74235814 Patient has been smoking since age 21, [...] htn, heart disease, lung disease, and cancer. [id number] Payal Hartley MD [address] [address] 06/30/2014 14:40:45 06/30/2014 15:41:47 Acute pharyngitis [id number] Nathan Ventura MD [address] [address] 11/04/2016 08:23:26 11/04/2016 09:25:24 Morbid obesity 466110633 E66.01 Patient is 476 lbs with BMI of 68.8%, he has gained 39lbs since his last visit in 2013.He has used exercise program in the past([employer]) and he reports [...] recheck fasting sugars. Tobacco de pendence syndrome 28069210 F17.290 Patient is has been smoking since [...] with smoking cessation on the future visits [id number] Nathan Ventura MD [address] [place] [address] 10/30/2017 14:46:17 10/30/2017 16:09:46 Postoperative visit 390619458 Z09 post operative visit after appendecto my, no complicati on.Recomme ded to follow up with surgeon on scheduled appointmen t on 11/12. Morbid obesity 369957459 E66.01 morbid obesity with BMI of 67.9. His TSH and Hba1c on normal range. BP is borderline high. on today visit 140/86. recommende d to keep a diary of his BP at home checking 3 times a week and call office if he notice high BP readings.R ecommended to continue with physical activity and bariatric nutritions . Tobacco de pendence syndrome 10929799 F17.200 quit smoking 5 days ago ,currently on nicotine patch 14mg.. no nicotine craving. Smoking cessation discussed. Will prescripe the gayathri of 7 mg when he finish the 14 mg patch also the nicotine gums as needed. He refuses any oral agent to help with smoking cessation. [id number] Nathan Ventura MD [address] [place] [address] 01/01/2018 15:12:05 01/01/2018 16:06:25 Morbid obesity 305222113 E66.01 morbid obesity with BMI of 69.9. [...] and to bariatric surgery. Low back pain 039670910 M54.5 Low back pain for the last [...] months will obtain a lumbar spine Xray. [id number] Apollo Madrigal MD [facility] [address] [place] [address] 05/06/2018 15:33:23 05/06/2018 16:09:21 Low back pain 708791324 M54.5 back pain x 08/2017, after lifting [...] and instructio ns Adult heal th examination 947329351 Z00.00 update lab work and follow-up for CPE Tobacco user 441475508 Z 72.0 initiate nicotine patch, counseled patient in detail including using patch and tobacco, currently Body mass index 40+ - severely obese 505069872 Z68.44 we'll rediscusse d diet etc. at a follow-up visit [id number] Apollo Madrigal MD [address] [address] 05/27/2018 14:41:58 05/27/2018 15:25:06 Increased blood pressure 41927188 R03.0 discussed NSA diet, exercise patient tolerated, and weight control Low back pain 567006418 M54.5 back pain x 08/2017, after lifting [...] with side effects precaution s and instructio nsbritany y OT will continue Tobacco user 290679890 Z 72.0 initiate nicotine patch, counseled patient in detail including using patch and tobacco, partial response thus far [id number] Apollo Madrigal MD [address] [place] [address] 06/23/2018 14:41:28 06/23/2018 15:43:40 Low back pain 335090689 M54.5 back pain x 08/2017, after lifting a case, also a torn R bicep tendon, 7 mo of PT/ occupation [employer]. question of spondyloly sis L5 on XR [...] other measures also discussed Increased blood pressure 02909643 R03.0 discussed NSA diet, exercise patient tolerated, and weight control, recheck BP in 1 week [id number] Apollo Madrigal MD [address] [place] [address] 07/09/2018 10:54:40 07/09/2018 11:35:09 Benign essential hypertension 5419824 I10 Low back pain 137801073 M54.5 back pain x 08/2017, after lifting a case, also a torn R bicep tendon, 7 mo of PT/ occupation [employer]. question of spondyloly sis L5 on XR [...] Boone Hudson and that fax # is: [phone] Apollo Madrigal MD [address] [place] [address] 09/17/2018 13:23:06 09/17/2018 13:40:59 Abdominal pain 70551971 R10.9 Predominan tly RUQ based. Hx of elevated LFT's I will recheck labs and order US. Possible gallstone. Advised if fever, chills, increased pain, N/V occurs go to ER. [id number] Apollo Madrigal MD [address] [place] [address] 10/09/2018 10:44:46 10/09/2018 11:24:36 Abnormal liver function 30078227 K76.89 steatohepa titis confirmed by ultrasound , Hep testing neg, will need Hep B immunizati on Tobacco de pendence syndrome 85053910 F17.200 no tobacco for several months Increased blood pressure 40130815 R03.0 discussed NSA diet, exercise patient tolerated, and weight control, BP variabilit y continues we will monitor Low back pain 840297101 M54.5 back pain x 08/2017, after lifting a case, also a torn R bicep tendon, 7 mo of PT/ occupation [employer]. question of spondyloly sis L5 on XR [...] Boone Hudson and that fax # is: [phone] 44MRI shows mild degenerati on that really does not explain his symptoms, we'll proceed with pain management evaluation as it does not appear to be a surgical problem [id number] Apollo Madrigal MD [address] [place] [address] 10/20/2019 12:50:52 10/20/2019 13:33:26 Adult health examination 756924001 Z00.00 discussed in detail with patient Tobacco de pendence syndrome 18884191 F17.200 unfortunat german has restarted tobacco Vitamin D deficiency 347 13464 E55.9 update serum vitamin D Morbid obesity 706131210 E66.01 last BMI of 73, unable to obtain today due to scale capacity, reinforced appropriat e diet and activity and weight controlPat ient is certainly a candidate for bariatric surgery Hypertensive disorder 38 417216 I10 elevated BP on recheck, initiate lisinopril 10 mg daily with side effects precaution s and instructio ns [id number] Apollo Madrigal MD [address] [place] [address] 11/03/2020 15:52:23 2020 08:37:33 Upper respiratory infection 12935765 J06.9 seems viral, instructed on symptomati c treatment, proceed with Covid testing, Patient will make arrangemen ts Increased blood pressure 10329048 R03.0 discussed NSA diet, exercise patient tolerated, and weight control, BP variabilit y continues we will monitorLas t blood pressure checked was stable [id number] Apollo Madrigal MD [address] [address] 08/10/2021 08:18:46 08/10/2021 08:46:43 Knee pain 13320154 M25.569 problems with right knee discomfort worse over the past several weeks, seems to be activity related, has no recent history of injury or traumaExam was difficult, we'll proceed with XR, instructed on ice, R OM, diclofenac gel, follow-up pending XR Increased blood pressure 56899225 R03.0 discussed NSA diet, exercise patient tolerated, and weight control, BP variabilit y continues we will monitornot ed elevated BP, follow-up appointmen t is pending [id number] Apollo Mardigal MD [address] [address] 11/02/2021 16:00:59 11/02/2021 16:58:54 Influenza vaccine needed 7475788624 106 Z23 Adult heal th examination 097480875 Z00.00 discussed in detail with patient, Update lab work Vitamin D deficiency 347 18326 E55.9 update serum vitamin D Tobacco de pendence syndrome 95138695 F17.200 unfortunat german has restarted tobacco, agreeable to a trial of vareniclin e, with side effects precaution s and instructio ns Essential hypertension 54600105 I10 reinforced previous recommenda tions for appropriat e diet and activity and weight control, restart lisinopril 10 mg daily [id number] Apollo Madrigal MD [address] [address] 12/05/2021 16:34:00 12/06/2021 13:56:42 Influenza-like illness 91750042 B34.9 in the ER for nausea and vomiting, myalgias he was Covid negative, and negative with retesting, still with congestion chills mild cough off and on headache, L BMsDenies wheezing or hemoptysis Continue with symptomati c treatment, dietary adjustment , follow-up if he does not continue to improve Increased blood pressure 06816506 R03.0 discussed NSA diet, exercise patient tolerated, and weight control, BP variabilit y continues we will monitorLas t BPin the ER 141/87 [id number] Carey Cervantes NP [address] [address] 04/01/2022 09:12:52 04/01/2022 09:42:32 Essential hypertension 37365811 I10 Uncontroll ed hypertensi on when patient [...] greater then 140/90 notify the office Snoring 33134708 R06.83 Ordered sleep study Vitamin D deficiency 347 34171 E55.9 Checked Vit D level Body mass index 40+ - severely obese 437459990 Z68.45 BMI 76Referred patient to nutritioni . Portion control, healthy food options, increase exercise Patient referred to bariatric surgery consult Smoker 54842446 F17.200 Smoking cessation advised [id number] ROBERTA STORM NP [address] [place] [address] 06/25/2022 12:38:24 06/25/2022 12:54:33 Acquired hydrocele 176238880 N43.3 referring to urology for f/u Epididymitis 71841389 N4 5.1 swelling and pain improved with abx, refering to urology for f/u [id number] Keaton Sarmiento [address] [place] [address] 09/19/2022 11:32:46 09/19/2022 12:40:44 Dietary management surveillance 753051113 Z71.3 Diet education 92571805 Z71.3 Obesity 532088342 E66.9 [id number] Carey Cervantes NP [address] [place] [address] 03/12/2023 14:49:30 03/12/2023 15:38:20 Chest pain 90330934 R07.9 Order STAT treadmill stress test.Refer to cardiology .Inform patient chest pain comes back go immediatel y to the ER or call 911. Essential hypertension 86418407 I10 Controlled hypertensi on on lisinopril 10 mg daily, prescripti on sent to pharmacy.Chanel abs UTDFollow up in one month Educated the [...] greater then 140/90 notify the office Anxiety 84213257 F41.9 Patient was given a prescripti on for Ativan take 1 tablet twice a day as needed [id number] Carey Cervantes NP [address] [place] [address] 03/28/2023 10:40:21 03/28/2023 11:23:18 Essential hypertension 99309076 I10 Controlled hypertensi on on lisinopril 10 [...] then 140/90 notify the office Chest pain 28799230 R07. 9 Unable to do treadmill stress test related to patient's weight.Has an appointmen t with cardiology already 05/15, needs referral for cardiac cathInform patient chest pain comes back go immediatel y to the ER or call 911. [id number] Carey Cervantes NP [facility] [address] [place] [address] 05/14/2023 11:10:21 05/14/2023 12:07:36 Chest pain 70397223 R07.9 Unable to do treadmill stress test related to patient's weight.Has an appointmen t with cardiology already 05/15, needs referral for cardiac cathInform patient chest pain comes back go immediatel y to the ER or call 911. Essential hypertension 61641224 I10 Controlled hypertensi on on lisinopril 10 mg daily, prescripti on sent to pharmacy.L mica Ronquillo up in one month Educated the [...] then 140/90 notify the office Morbid obesity 029857337 E66.01 Patient lost 18 pounds and has been going to a bariatric program in [facility] with weight loss Sleep apnea 12322915 G47 .30 Patient uses CPAP Tobacco de pendence syndrome 01096818 F17.200 Prescribe NicoDerHao oking cessation highly advised [id number] Carey Cervantes NP [address] [place] [address] 07/11/2023 09:43:13 07/11/2023 10:42:14 Essential hypertension 17370609 I10 Well-contr olled hypertensi on on 10 [...] then 140/90 notify the office Sleep apnea 58861759 G47 .30 Patient uses CPAP every night Obesity 647774117 E66.9 Goal 500 lbs, continue with weight loss, dietary modificati ons, portion control and exercise. Chest pain 41486248 R07. 9 Unable to do treadmill stress test related to patient's weight.Ashley amaya has an appointmen t with cardiology in [place] 07/29/23[facility] orm patient chest pain comes back go immediatel y to the ER or call 911. Filled out disability paperwork unable to return back to work until cleared by cardiology [id number] MAGDI VILLARREAL MD [address] [place] [address] 03/23/2024 14:08:06 03/23/2024 15:12:04 Viral upper respiratory tract infection 296328582 J06.9 mild cough, congestion , sore throat and fatigue.co vid and flu swabs negataive. today day 4 of sx.support rell care, rest, fluids, acetaminop lizbeth led on typical disease course, warning signs, and indication s for urgent and emergent evaluation . all questions answered. follow-up if symptoms persist or worsen. Morbid obesity 099156354 E66.01 -- dima has been working with [facility]. he dropped his wt from [...] note, dima reports he is followed by [facility] and he was sent to cardiac cath at [facility] for atypical chest pain. he says the cath was negative. he signed releases today for records from [facility] (the cath) and from [facility] -- counseled on smoking cessation. this will help w/ recovery from URI and also is important as he heads towards surgery. he's down to 1/4 ppd.-- BP controlled on lisinopril when rechecked w/ proper fitting thigh cuff on upper arm.-- FIDE, using cpap nightly. sleeping well w/ it. [id number] MAGDI VILLARREAL MD [address] [address] 04/14/2024 11:25:31 04/14/2024 13:39:28 Extreme obesity with alveolar hypoventilation 149810622 E66.2 pt has BMI over 78 and [...] once weekly.pt has trouble making it to [facility] and would prefer to see a local nutrition. i will place a referral with [facility]. pt will call us once he is three weeks into the new medicine to discuss how he is tolerating medication so that we can determine if ready to increase the following month's dose. we will also schedule 4 wk f/u. [id number] Carey Cervantes NP [address] [place] [address] 08/16/2024 10:00:43 08/16/2024 16:27:29 Abdominal pain 11124514 R10.9 Recheck patient's lipase level- it was 222 at [facility]. Also ordered amylase level, CBC, CMP.Sheree vang discontinu ed taking Wegovy. Discussed CT report with patient Pending lab results patient may be referred to ER if electrolyt es are off or amylase and lipase are elevated. Nausea and vomiting 1692 1999 R11.2 Pending lab results patient may be referred to ER if electrolyt es are off or amylase and lipase are elevated.P atient prescribed ZofranIce chip, small sips of water [id number] Carey Cervantes NP [address] [address] 08/17/2024 14:43:53 08/17/2024 15:38:23 Abdominal pain 15307398 R10.9 Recheck patient's lipase level- it was 222 at [facility]. Also ordered amylase level, CBC, CMP.All lab [...] Body mass index 40+ - severely obese 139353916 Z68.45 BMI 79He was seeing a nutritioni Portion control, healthy food options, increase exercise Patient referred to bariatric surgery consult, got down to 515 LBS, today 569 Nausea and vomiting 1692 1999 R11.2 Pending lab results patient may be referred to ER if electrolyt es are off or amylase and lipase are elevated.P atient prescribed ZofranIce chip, small sips of water [id number] Carey Cervantes NP [address] [address] 10/18/2024 13:46:40 10/18/2024 14:23:24 Pain of left wrist 2629240593 30317 M25.532 Referred to Orthopedis t Reviewed urgent care note Continue wearing wrist brace Elevate left arm and apply ice. Essential hypertension 42660565 I10 Well-contr olled hypertensi on on 10 [...] Body mass index 40+ - severely obese 471720069 Z68.45 BMI 79He was seeing a nutritioni Portion control, healthy food options, increase exercise Patient referred to bariatric surgery consult, got down to 515 LBS, today 10/2024 571 LBS.Strong ly encourage patient to follow-up with bariatric surgeon in [facility]. Sleep apnea 11628194 G47 .30 Patient uses CPAP every night Health Concerns Section Related Observation LastModified by Organization Detai ls LastModified Time None Recorded Concern Status LastModified by Organization Details LastModified Time None Recorded Advance Directives Directive None Recorded Payers Encounter Date Sequence Insurance Name Policy Number Policy Ricardo Covered Member ID Ricardo Member ID Guarantor Name 03/23/2024 1 [facility]) [id number] Dima M Jennings [id number] Dima M Debra 04/14/2024 1 [facility]) [id number] Dima M Debra [id number] Dima M Debra 08/16/2024 1 [facility]) [id number] Dima M Debra [id number] Dima M Jennings 08/17/2024 1 [facility]) [id number] Dima M Debra [id number] Dima M Jennings 10/18/2024 1 [facility]) [id number] Dima M Jennings [id number] Dima M Jennings Notes Date Note Type Note Provider Name [...] cig. PMH:morbid obesity (BMI 73.4). working with [facility] bariatric surg. he dropped his wt from 560 to 515 to qualify for surgery, but they recently told him he now needs to drop to 450 to qualify for gastric bypass. they've changed the parameters.HTN,cigarette s.FIDE on CPAPGERDNAFLDanxiety MAGDI VILLARREAL MD [address] [place] [address], [address], [facility] [employer] 03/23/2024 21:35:19 4 text/html 33 yo man, ex-smoker (quit 2 yrs ago), morbid obesity with BMI>78 complicated by FIDE and chronic low back and knee pain, HTN, family hx of father w/ [place] late 40s, and s/p appy. note, as [...] been seen at bariatric surg program at [facility].on diet 560 to 513, but then gained [...] once weekly.pt has trouble making it to [facility] and would prefer to see a local nutrition. i will place a referral with [facility]. 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 quit cigarettes approx 2 yrs ago. no drug use. etoh: rarely will have one beer, not more. MAGDI VILLARREAL MD [address] [facility], [place], [address], [place] [employer] 04/29/2024 14:31:53 4 text/html Telehealth visit, permission given by patient, both parties in the state of [place]. ER follow-up, 08/10 patient went to [facility] with complaint of abdominal pain and irretractable vomiting.33yoM w/ pmh extremely elevated BMI started on Wegovy 5 weeks ago, HTN, s/p appendectomy presenting with cc abdominal pain and vomiting, transferred from [facility] in [place] for CT imaging ([facility] was identified as a hospital with a [...] still not improved. Carey Cervantes, [address] [place], [address], [employer] 08/17/2024 13:08:25 4 text/html Patient presents in office today with complaint of abdominal pain and vomiting. Insisted on being seen in the office for evaluation.Had a telehealth visit yesterday and also had labs done. Telehealth visit from yesterday Below: ER follow-up, 08/10 patient went to [facility] with complaint of abdominal pain and irretractable vomiting.33yoM w/ pmh extremely elevated BMI started on Wegovy 5 weeks ago, HTN, s/p appendectomy presenting with cc abdominal pain and vomiting, transferred from [facility] in [place] for CT imaging ([facility] was identified as a hospital with a [...] ago. Patient was seen bariatric surgery at [facility]. He was 560 and got down [...] off his diet. Carey Cervantes, LANCE [address] [facility], [place], [address], [facility] - [employer] 08/17/2024:18:49 4 text/html Patient presents in office today with complaint of abdominal pain and vomiting. Insisted on being seen in the office for evaluation.Had a telehealth visit yesterday and also had labs done. Telehealth visit from yesterday Below: ER follow-up, 08/10 patient went to [facility] with complaint of abdominal pain and irretractable vomiting.33yoM w/ pmh extremely elevated BMI started on Wegovy 5 weeks ago, HTN, s/p appendectomy presenting with cc abdominal pain and vomiting, transferred from [facility] in [place] for CT imaging ([facility] was identified as a hospital with a [...] ago. Patient was seen bariatric surgery at [facility]. He was 560 and got down [...] restart going to the bariatric program at [facility]. Patient reports he has not been [...] referral to Ortho. Carey Cervantes, [address] [place], [address], [facility] [employer] [facility] 10/18/2024 14:32:23
== END 2025-04-11 11:09 | disposition home or self-care (01) ==
LOC: HO.HBST 10:27
PROVIDERS: PCP Nurse Practitioner Adult Health; Visit Provider Counselor Mental Health
DX: F50.9 Eating disorder, unspecified (principal); Z71.89 Other specified counseling
CPT/HCPCS: 90834

== ENCOUNTER → 2025-04-11 10:27 | Outpatient (BNVA) | payer OTHER, SELFPAY | PROVIDERS: PCP Nurse Practitioner Adult Health; Visit Provider Counselor Mental Health ==